=== PATIENT | female | born 1945 | race Caucasian/White ===

== ENCOUNTER → 2018-01-30 14:43 | Outpatient (CLI) | payer MEDICARE, OTHER, SELFPAY ==
[2017-12-30 10:57] VITALS: BMI 19.7
--- NOTE | 2018-01-30 14:49 | RAD_ITS ---
STUDY: X-RAY CHEST REASON FOR EXAM: Female, 72 years old. Chest pain TECHNIQUE: Frontal and lateral views of the chest COMPARISON: 06/19/2015 FINDINGS: The lungs are clear. There are no pleural effusions. There is no pneumothorax. The heart is mildly enlarged, but stable in size. Again noted are sternotomy wires. The visualized osseous structures are within normal limits. RAD/Chest PA and Lateral IMPRESSION: No acute thoracic pathology. Electronically Signed: Monroe Guzman, at 15:22 EST Tel , Service support ,
[2018-01-30 18:38] LABS: Color, Urine Yellow (Yellow); Glucose, Dipstick Normal (Normal); Ketone-Dipstick Negative (Negative); Leukocyte Esterase-Dipstick Negative /ul (Negative); Nitrite-Dipstick Negative (Negative); Occult Blood-Urine 10 /ul (Negative); Protein-Dipstick Negative (Negative); Specific Gravity, Urine 1.015 (1.002-1.030); Urine Bilirubin Dipstick Negative (Negative); Urine Clarity Clear (Clear); Urine Urobilinogen Normal (Normal)
--- OUTSIDE RECORDS SUMMARY | 2018-03-18 20:28 | XMS RPT_ITS ---
:1945 Author Organization [facility] Care Team Providers Name Role Phone CRISTOPHER CARTER, MR. VALLE Primary Care Unavailable CAROLYNE CRANE MD Referring Unavailable FISH ANDREA, JHON Attending Unavailable FISH ANDREA, JHON Attending Unavailable CRISTOPHER CARTER, MR. VALLE Primary Care Unavailable Saad Garcia Attending Unavailable Leon Mandel Referring Unavailable Leon Mandel Attending Unavailable Loen Mandel Referring Unavailable Leon Mandel Primary Care Unavailable Leon Mandel Attending Unavailable Leon Mandel Referring Unavailable RAKAN NI Admitting Unavailable RAKAN NI Attending Unavailable PROBLEMS PROBLEMS DATE TYPE CONDITION / ATTENDING STATUS SOURCE CODE 03/08/2018 Unknown R05 - Cough / Leon Mandel Active [place] R05(ICD-10) [facility] [place] Repository 07/25/2017 Admitting Unknown / RAKAN NI Active [facility] diagnosis UNK(Unknown) Hospital Repository PROCEDURES PROCEDURES No Procedure Records FoundRESULTS RESULTS INTERNAL MEDICINE Observed: 02/16/2018 Status: F Source: [place] OFFICE VISIT 2:11 PM [facility] [address] [place] [address] OFFICE VISIT Date of Service: 02/16/18 MR#: [id number] Acct: [id number] Name: DALIA CHU Rep #: [id number] : 1945 Provider: Leon Mandle DO Age/Sex: 72/F Location[place] [facility] Status: Signed Intake Vital Signs02/16/18 Height 5 ft 2 in 02/16/18 Weight: 108 lb 02/16/18 Body Mass Index (BMI) 19.7 02/16/18 Blood Pressure 127/73 H Intake Visit Reasons: Test results Chief Complaint: Test results Is patient in pain?: Yes (back) Pain scale (1-10): 5 Allergies Sulfa (Sulfonamide Antibiotics) Allergy (Verified 02/16/18 13:25) Rash Medications Acetaminophen [Tylenol] 1,000 mg PO TID PRN PRN #90 tab 06/15/15 [Rx Confirmed 02/16/18] Cholecalciferol (VIT D3) [Vitamin D3] 2,000 unit PO DAILY #30 tab 06/15/15 [Rx Confirmed 02/16/18] citalopram 40 mg tablet 20 mg PO DAILY 02/16/18 [History Confirmed 02/16/18] diltiazem CD 180 mg capsule,extended release 24 hr 180 mg PO DAILY 02/16/18 [History Confirmed 02/16/18] warfarin 3 mg tablet 3 mg PO DAILY 02/16/18 [History Confirmed 02/16/18] warfarin 5 mg tablet 5 mg PO DAILY tab 02/16/18 [History Confirmed 02/16/18] PFSH Medical History Cancer of pelvic bone (Resolved) Surgical History History of artificial heart valve (Acute) History of hysterectomy (Acute) History of total right hip replacement (Acute) Family History Father Lung cancer Mother Heart disease Social History Smoking Status: Former smoker alcohol intake: current alcohol intake frequency: holidays/special occasions only substance use type: does not use what type of physical activity do you participate in: none HPI HPI Chief Complaint: Test results Details: DALIA CHU, is a 72 F who presents to the office today for discussion on back pain She has had this back pain on and off but it is much worse and I think underlying is a concern that she has recurrence of her bone cancer that apparently she had in the pelvis. The pain is at about the eighth dorsal vertebra it radiates around to the left it is worse when she side bends to that side. ROS Const Constitutional: No chills, fatigue, fever(s), frequent falls, malaise, weakness, sleep problems or change in appetite Eyes Eyes: No blurry vision, change in vision, double vision, discharge or visual disturbances ENT ENT: No abnormal hearing, ear pain, ear pressure, tinnitus or dizziness/vertigo Resp Respiratory: No cough, shortness of breath or wheezing Cardio Cardiology: No chest pain at rest, chest pain with exertion, shortness of breath, dyspnea on exertion, generalized swelling, irregular heart rhythm, lightheadedness, orthopnea, fast heart rate or palpitations Gastro GI: No abdominal pain, change in bowel habits, constipation, diarrhea, nausea/dyspepsia or vomiting Genitourinary-Female: No difficulty urinating, burning urination, painful urination, urinary incontinence, urinary frequency, urinary urgency, urinary hesitancy, urinary retention, Frequent nighttime urination/ nocturia, sexual problems, genital lesions, abnormal vaginal bleeding, pelvic pain, vaginal dryness, vaginal odor or Vaginal Itching Musc Musculoskeletal: No joint pain, back pain, joint swelling, limited range of motion, numbness or tingling Skin Skin: No change in skin color, itching, rash or wounds Breast Breast: No breast lump or breast pain Neuro Neurology: No frequent falls, weakness, visual disturbances, abnormal hearing, numbness, tingling, unsteady gait/balance, dizziness, loss of vision or memory loss Psych Psychiatric: No change in appetite, No memory loss, No anxiety, No depression, No Thoughts of harming yourself/Others Endo Endocrine: No fatigue, heat intolerance, increased thirst/drinking, increased hunger or increased urination Aller/Imm Allergy/Immunologic: No wheezing, itchy eyes or seasonal allergy symptoms Dashawn/Lymp Hematologic/Lymphatic: No easy bleeding, easy bruising or enlarged lymph nodes Exam Const General: cooperative, healthy appearing, no acute distress Nutritional Appearance: thin Orientation: oriented x3 Chest Chest palpation AND inspection: normal inspection of the chest Resp Effort AND Inspection: normal respiratory effort Auscultation: Bilateral: Clear to Auscultation Cardio Rate: regular rate Rhythm: regular rhythm Heart Sounds: murmur (mechanical valve) continuous Musc Musculoskeletal: Yes scoliosis to R Thoracic/Lumbar Spine: thoracic spinal tenderness (At T-7 level) Skin General: no rashes or lesions noted Neuro General: oriented x3, moves all extremities, no focal motor deficits Psych Appearance: grossly normal Mental Status: mental status grossly normal Assessment AND Plan Problems 1. Chronic a-fib I48.2 2. 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 Thoracic myofascial strain, initial encounter S29.019A Plan This patient was seen several weeks ago with her complaining of back pain as I did not have time to examine her I ordered a x-ray of the thoracic spine and a urinalysis. Both of which came back normal. After talking with her she is right with fully concerned that she has bone cancer but I assured her that the x-ray showed no sign of that. I think she simply has a thoracic strain so I gently gently manipulated thoracic spine with some segmental relief. I told her some exercises to do and if the pain continues I will refer her to physical therapy or perhaps a chiropractor for continued VAC therapy with the outside chance of doing a bone scan if the pain increases in severity. 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 Thoracic myofascial strain, initial encounter S29.019A Encounter type: initial encounter 02/16/18 1411 <Electronically signed by Leon Mandel DO> Date Leon Mandel DO Cosigner Signature: Date (if applicable) CC: PRO Collected: 02/08/2018 Status: F Source: [facility] 1:30 PM [facility] [place] REPOSITORY TYPE CODE TESTS RESULT OUT OF REFERENCE UNITS RANGE LAB PT(LOINC) 9.3-14.6 seconds Protime High 30.9 LAB INR(LOINC) 0.9-1.2 ratio PT High International 3.1 Ratio Result Comment: Standard Dose 2.0 - 3.0 High Dose 2.5 - 3.5 The recommended therapeutic range for oral anticoagulant therapy is: LOW RISK: Prophylaxis of venous thrombosis INR: 2.0 - 3.0 Treatment of pulmonary embolism 2.0 - 3.0 Prevention of systemic embolism 2.0 - 3.0 HIGH RISK: Mechanical prosthetic valves 2.5 - 3.5 Performed By: #### PRO #### [address] [address] PRO Collected: 02/01/2018 Status: F Source: [place] 2:00 PM [facility] [place] REPOSITORY TYPE CODE TESTS RESULT OUT OF REFERENCE UNITS RANGE LAB PT(LOINC) 9.3-14.6 seconds Protime High 22.1 LAB INR(LOINC) 0.9-1.2 ratio PT High International 2.2 Ratio Result Comment: Standard Dose 2.0 - 3.0 High Dose 2.5 - 3.5 The recommended therapeutic range for oral anticoagulant therapy is: LOW RISK: Prophylaxis of venous thrombosis INR: 2.0 - 3.0 Treatment of pulmonary embolism 2.0 - 3.0 Prevention of systemic embolism 2.0 - 3.0 HIGH RISK: Mechanical prosthetic valves 2.5 - 3.5 Performed By: #### PRO #### [address] [address] CHEST PA AND LATERAL Observed: 01/30/2018 Status: F Source: [place] 2:50 PM [facility] [place] REPOSITORY [facility] Imaging Services [address] [place] [address] Chest PA and Lateral MR#: [id number] Acct: [id number] Name: DALIA CHU Rep #: [id number] : 1945 F 72 From: Monroe Guzman MD PCP: Leon Mandel DO Status: REG CLI Study: Chest PA and Lateral Date of Exam: 01/30/18 Exam# [id number] Ordering Dr: Leon Mandel DO STUDY: X-RAY CHEST REASON FOR EXAM: Female, 72 years old. Chest pain TECHNIQUE: Frontal and lateral views of the chest COMPARISON: 06/19/2015 FINDINGS: The lungs are clear. There are no pleural effusions. There is no pneumothorax. The heart is mildly enlarged, but stable in size. Again noted are sternotomy wires. The visualized osseous structures are within normal limits. RAD/Chest PA and Lateral IMPRESSION: No acute thoracic pathology. Electronically Signed: Monroe Guzman, at 15:22 EST Tel , Service support , CC: Leon Mandel DO Senior Software Project Manager: Signed URINALYSIS, ROUTINE Collected: 01/30/2018 Status: F Source: [place] ([place]) 2:50 PM [facility] [place] REPOSITORY Order Comment: How was Urine Obtained? HYDRO ELECTRIC STATION OPERATOR TO SPECIFY TYPE CODE TESTS RESULT OUT OF RANGE REFERENCE UNITS LAB L400.3000 Yellow COLOR Normal Yellow LAB L400.3050 Clear Normal CLARITY Clear LAB L400.3200 Normal mg/dl Normal GLUCOSE, UR Normal LAB L400.3300 Negative mg/dL Normal BILIRUBIN URINE Negative LAB L400.3400 Negative mg/dl Normal KETONE UR Negative LAB L400.3465 1.002-1.030 Normal SP.GR. DIPSTX 1.015 LAB L400.3550 5.0 - 8.0 pH UR Normal 7.0 LAB L400.3600 Negative mg/dl PROT Normal DIPSTX Negative LAB L400.3700 Normal mg/dl Normal UROBILI Normal LAB L400.3750 Negative Normal NITRITE UR Negative LAB L400.3780 Negative /ul High 10 OCCULT BLOOD-UR LAB L400.3800 Negative /ul LEUK Normal ESTERASE Negative Performed By: #### L400.2010 #### [facility] [place], [place], [address] PRO Collected: 01/08/2018 Status: F Source: [place] 12:39 PM [facility] [place] REPOSITORY TYPE CODE TESTS RESULT OUT OF REFERENCE UNITS RANGE LAB PT(LOINC) 9.3-14.6 seconds Protime High 35.2 LAB INR(LOINC) 0.9-1.2 ratio PT High International 3.6 Ratio Result Comment: Standard Dose 2.0 - 3.0 High Dose 2.5 - 3.5 The recommended therapeutic range for oral anticoagulant therapy is: LOW RISK: Prophylaxis of venous thrombosis INR: 2.0 - 3.0 Treatment of pulmonary embolism 2.0 - 3.0 Prevention of systemic embolism 2.0 - 3.0 HIGH RISK: Mechanical prosthetic valves 2.5 - 3.5 Performed By: #### PRO #### [address] [address] PRO Collected: 01/03/2018 Status: F Source: [place] 1:25 PM [facility] [place] REPOSITORY TYPE CODE TESTS RESULT OUT OF RANGE REFERENCE UNITS LAB PT(LOINC) 9.3-14.6 seconds High Protime 60.1 LAB INR(LOINC 0.9-1.2 ratio ) PT Abnormal International 6.3 Alert Ratio Result Comment: Standard Dose 2.0 - 3.0 High Dose 2.5 - 3.5 The recommended therapeutic range for oral anticoagulant therapy is: LOW RISK: Prophylaxis of venous thrombosis INR: 2.0 - 3.0 Treatment of pulmonary embolism 2.0 - 3.0 Prevention of systemic embolism 2.0 - 3.0 HIGH RISK: Mechanical prosthetic valves 2.5 - 3.5 Performed By: #### PRO #### [address] [address] URGENT CARE VISIT Observed: 12/30/2017 Status: F Source: [place] RE[place] 11:46 AM [facility] [place] REPOSITORY [facility] [address] [place] [id number] OFFICE VISIT Date of Service: 12/30/17 MR#: [id number] Acct: [id number] Name: DALIA CHU Rep #: [id number] : 1945 Provider: EMMA Garcia Age/Sex: 72/F Location: [facility] Status: Signed Intake Vital Signs12/30/17 Height 5 ft 2 in 12/30/17 Weight: 108 lb 12/30/17 Body Mass Index (BMI) 19.7 12/30/17 Blood Pressure 160/88 H 12/30/17 Blood Pressure Location Lt brachial Intake Visit Reasons: BACK PAIN Chief Complaint: Thoracic back pain Allergies Sulfa (Sulfonamide Antibiotics) Allergy (Verified 06/19/15 18:53) Rash Medications Acetaminophen [Tylenol] 1,000 mg PO TID PRN PRN #90 tab 06/15/15 [Rx Confirmed 06/19/15] Cholecalciferol (VIT D3) [Vitamin D3] 2,000 unit PO DAILY #30 tab 06/15/15 [Rx Confirmed 06/20/15] Citalopram [Celexa] 20 mg PO DAILY #30 tab 06/15/15 [Rx Confirmed 06/20/15] Flecainide [Tambocor] 100 mg PO BID #60 tab 06/15/15 [Rx Confirmed 06/20/15] Senna/Docusate Sodium [Senokot-S] 1 tab PO BID #60 tab 06/15/15 [Rx Confirmed 06/20/15] fentaNYL patch [Duragesic patch] 25 mcg TRANSDERM. Q3D #7 patch 06/20/15 [Rx] Amlodipine [Norvasc] 2.5 mg PO DAILY #30 tab 06/22/15 [Rx Confirmed 06/20/15] Oxycodone [Oxyir] 5 mg PO Q4H PRN PRN #15 tab 06/22/15 [Rx] Warfarin [Coumadin] 7.5 mg PO QODAY 06/22/15 [History Confirmed 06/22/15] Warfarin [Coumadin] 10 mg PO QODAY 06/22/15 [History Confirmed 06/22/15] cyclobenzaprine 10 mg tablet 5 mg PO TID PRN PRN #20 tab 12/30/17 [Rx Confirmed 12/30/17] PFSH Social History Smoking Status: Former smoker HPI HPI Chief Complaint: Thoracic back pain Details: DALIA CHU, is a 72 F who presents to the office today for thoracic back pain times 6 days. Patient states over the past 2 weeks she had had an upper respiratory infection and was not treated. She has been taking [id number] cold and cough medications. Her symptoms have essentially resolved although she has a minor dry cough. Approximately 6 days ago she developed mid back pain with some radiation to the right flank. She has been taking Tylenol occasionally. She wonders if she has pleurisy. She states she has not injured her back, she has not been lifting and she has not fallen. ROS Const Constitutional: No chills or fever(s) Eyes Eyes: No change in vision ENT ENT: No ear pain, sore throat, nasal congestion or nasal discharge Resp Respiratory: No cough, chest congestion, shortness of breath or wheezing Cardio Cardiology: No chest pain at rest or chest pain with exertion Gastro GI: No abdominal pain, diarrhea, vomiting or nausea/dyspepsia Musc Musculoskeletal: Positive for back pain (Thoracic back pain and right flank pain); no abnormal walking Skin Skin: No rash or change in skin color Neuro Neurology: No confusion, abnormal walking or abnormal speech Psych Psychiatric: No confusion Aller/Imm Allergy/Immunologic: No wheezing Exam Resp Effort AND Inspection: normal respiratory effort Auscultation: Bilateral: Clear to Auscultation (no friction rub) Cardio Rhythm: abnormal rhythm Heart Sounds: click, murmur systolic harsh, at the right sternal border and at the left sternal border Musc Musculoskeletal: No joint tenderness Thoracic/Lumbar Spine: thoracic and lumbar spine normal to inspection, thoraco-lumbar ROM normal, no paraspinal tenderness, pain with thoraco-lumbar ROM with lateral flexion to the right Assessment AND Plan Problems 1. Acute right-sided thoracic back pain M54.6 Plan The patient was instructed to continue acetaminophen. She was instructed to apply heat and begin gentle stretching exercises. We will begin cyclobenzaprine 5 mg 3 times daily as needed, this was reordered from a previous cyclobenzaprine prescription listed in her chart. The patient was informed that the cyclobenzaprine can cause drowsiness. The patient declined a chest x-ray today. She states she will follow-up with her primary care if her symptoms do not resolve in the next week. Medications Refilled: Coding Level of Care Code Off vis,est,level 3 Diagnoses Acute right-sided thoracic back pain M54.6 Chronicity: acute Back pain laterality: right 12/30/17 1146 <Electronically signed by Saad CARTER> Date Saad Yehignmarylin Signature: Date (if applicable) CC: PRO Collected: 10/09/2017 Status: F Source: [place] 2:15 PM [facility] [place] REPOSITORY TYPE CODE TESTS RESULT OUT OF REFERENCE UNITS RANGE LAB PT(LOINC) 9.3-14.6 seconds Protime High 31.9 LAB INR(LOINC) 0.9-1.2 ratio PT High International 3.2 Ratio Result Comment: Standard Dose 2.0 - 3.0 High Dose 2.5 - 3.5 The recommended therapeutic range for oral anticoagulant therapy is: LOW RISK: Prophylaxis of venous thrombosis INR: 2.0 - 3.0 Treatment of pulmonary embolism 2.0 - 3.0 Prevention of systemic embolism 2.0 - 3.0 HIGH RISK: Mechanical prosthetic valves 2.5 - 3.5 Performed By: #### PRO #### [address] [address] PRO Collected: 09/15/2017 Status: F Source: [place] 11:51 AM [facility] [place] REPOSITORY TYPE CODE TESTS RESULT OUT OF REFERENCE UNITS RANGE LAB PT(LOINC) 9.3-14.6 seconds Protime High 24.6 LAB INR(LOINC) 0.9-1.2 ratio PT High International 2.4 Ratio Result Comment: Standard Dose 2.0 - 3.0 High Dose 2.5 - 3.5 The recommended therapeutic range for oral anticoagulant therapy is: LOW RISK: Prophylaxis of venous thrombosis INR: 2.0 - 3.0 Treatment of pulmonary embolism 2.0 - 3.0 Prevention of systemic embolism 2.0 - 3.0 HIGH RISK: Mechanical prosthetic valves 2.5 - 3.5 Performed By: #### PRO #### [address] [address] PRO Collected: 09/08/2017 Status: F Source: [place] 10:40 AM [facility] [place] REPOSITORY TYPE CODE TESTS RESULT OUT OF REFERENCE UNITS RANGE LAB PT(LOINC) 9.3-14.6 seconds Protime High 33.7 LAB INR(LOINC) 0.9-1.2 ratio PT High International 3.4 Ratio Result Comment: Standard Dose 2.0 - 3.0 High Dose 2.5 - 3.5 The recommended therapeutic range for oral anticoagulant therapy is: LOW RISK: Prophylaxis of venous thrombosis INR: 2.0 - 3.0 Treatment of pulmonary embolism 2.0 - 3.0 Prevention of systemic embolism 2.0 - 3.0 HIGH RISK: Mechanical prosthetic valves 2.5 - 3.5 Performed By: #### PRO #### [address] [address] PRO Collected: 09/01/2017 Status: F Source: [place] 9:45 AM [facility] [place] REPOSITORY TYPE CODE TESTS RESULT OUT OF REFERENCE UNITS RANGE LAB PT(LOINC) 9.3-14.6 seconds Protime High 22.1 LAB INR(LOINC) 0.9-1.2 ratio PT High International 2.2 Ratio Result Comment: Standard Dose 2.0 - 3.0 High Dose 2.5 - 3.5 The recommended therapeutic range for oral anticoagulant therapy is: LOW RISK: Prophylaxis of venous thrombosis INR: 2.0 - 3.0 Treatment of pulmonary embolism 2.0 - 3.0 Prevention of systemic embolism 2.0 - 3.0 HIGH RISK: Mechanical prosthetic valves 2.5 - 3.5 Performed By: #### PRO #### [address] [address] PRO Collected: 08/16/2017 Status: F Source: [place] 11:57 AM [facility] [place] REPOSITORY TYPE CODE TESTS RESULT OUT OF REFERENCE UNITS RANGE LAB PT(LOINC) 9.3-14.6 seconds Protime High 32.1 LAB INR(LOINC) 0.9-1.2 ratio PT High International 3.2 Ratio Result Comment: Standard Dose 2.0 - 3.0 High Dose 2.5 - 3.5 The recommended therapeutic range for oral anticoagulant therapy is: LOW RISK: Prophylaxis of venous thrombosis INR: 2.0 - 3.0 Treatment of pulmonary embolism 2.0 - 3.0 Prevention of systemic embolism 2.0 - 3.0 HIGH RISK: Mechanical prosthetic valves 2.5 - 3.5 Performed By: #### PRO #### [address] [address] PRO Collected: 08/09/2017 Status: F Source: [place] 1:38 PM [facility] [place] REPOSITORY TYPE CODE TESTS RESULT OUT OF RANGE REFERENCE UNITS LAB PT(LOINC) 9.3-14.6 seconds High Protime 54.1 LAB INR(LOINC 0.9-1.2 ratio ) PT Abnormal International 5.6 Alert Ratio Result Comment: Standard Dose 2.0 - 3.0 High Dose 2.5 - 3.5 The recommended therapeutic range for oral anticoagulant therapy is: LOW RISK: Prophylaxis of venous thrombosis INR: 2.0 - 3.0 Treatment of pulmonary embolism 2.0 - 3.0 Prevention of systemic embolism 2.0 - 3.0 HIGH RISK: Mechanical prosthetic valves 2.5 - 3.5 Performed By: #### PRO #### [address] [address] PRO Collected: 07/31/2017 Status: F Source: [place] 2:35 PM [facility] [place] REPOSITORY TYPE CODE TESTS RESULT OUT OF REFERENCE UNITS RANGE LAB PT(LOINC) 9.3-14.6 seconds Protime High 26.2 LAB INR(LOINC) 0.9-1.2 ratio PT High International 2.6 Ratio Result Comment: Standard Dose 2.0 - 3.0 High Dose 2.5 - 3.5 The recommended therapeutic range for oral anticoagulant therapy is: LOW RISK: Prophylaxis of venous thrombosis INR: 2.0 - 3.0 Treatment of pulmonary embolism 2.0 - 3.0 Prevention of systemic embolism 2.0 - 3.0 HIGH RISK: Mechanical prosthetic valves 2.5 - 3.5 Performed By: #### PRO #### [address] [address] CNDS Observed: 07/28/2017 Status: COMPLETED Source: [place] 5:28 PM [facility] REPOSITORY HNO ID: [id number] Author: Christin Cannon Service: (none) Author Type: Physician Type: Discharge Summaries Filed: 12/21/2017 6:08 PM Note Text: [place] [address] HEALTH INFORMATION MANAGEMENT DISCHARGE SUMMARY Patient: STEFANI CHUZABETH CHRISTIN EPPS M.D. [id number] [age] F Status: ADM Phan [facility] Date of Admission: 07/25/17 Date of Discharge: Discharge Summary Discharge Diagnosis: 1. A-fib 2. INR (international normal ratio) abnormal 3. Subtherapeutic international normalized ratio (INR) 4. S/P aortic valve and mitral valve replacement HPI: Please see written history and physical. Hospital Course: Uncomplicated. Dalia received weight-adjusted unfractionated heparin and warfarin, after which the heparin was discontinued once her INR was therapeutic. Dalia reports that she has been on her current warfarin regimen for eight - 10 months and that her INRs were otherwise stable. She attributed her supratherapeutic INR to getting ill recently. She had not yet started the azithromycin prescribed to her prior to her INR becoming supratherapeutic. She receive 10 mg daily each of the last two days. This dosing regimen corresponds to a weekly dose of 70 mg. Her home warfarin dose - 8 mg daily Monday through , and 11 mg on Fridays - corresponds to a weekly dose of 59 mg, which is approximately 15 percent lower than what she was receiving during her hospitalization. INR on the day of discharge was 2.7. Heparin was discontinued. Dalia was instructed to take 8 mg warfarin tomorrow and Monday and to get her INR checked on Monday. Orders/Scripts Dalia was instructed to get her INR checked on Monday, 31 July 2017. Her goal INR is 2.5 - 3.5. Discharge Instructions: Please see written instructions on chart. Discharge Condition: Stable Disposition: Home CC: MARA CUELLO C.NDante; JHON ARMSTRONG C.NDante; RAKAN NI D.O. <Electronically signed by CHRISTIN CANNON M.D.> 07/28/17 1734 CHRISTIN CANNON M.D. cc: << Signature on File>> Reported By: CHRISTIN CANNON M.D. Signed By: CHRISTIN CANNON M.D. Tests performed at: [address] [address] CBC Collected: 07/28/2017 Status: F Source: [facility] 4:35 AM HOSPITAL REPOSITORY TYPE CODE TESTS RESULT OUT OF RANGE REFERENCE UNITS LAB L200.0100 4.5-10.0 x10(3) Normal WBC 5.5 LAB L200.0200 3.30-5.00 x10(6) Normal RBC 4.04 LAB L200.0210 12.0-16.0 g/dL Normal HGB 12.6 LAB L200.0220 36.0-48.0 % Normal HCT 37.0 LAB L200.0230 80.0-99.0 fl Normal MCV 91.6 LAB L200.0240 28.5-32.9 pg Normal MCH 31.2 LAB L200.0250 33.0-36.0 g/dL Normal MCHC 34.0 LAB L200.0260 12.5-15.7 % Normal RDW 14.0 LAB L200.0270 150-450 X10(3) Normal PLT 206 LAB L200.0290 7.5-9.5 fl Normal MPV 8.4 LAB L200.0300 45.0-73.0 % Normal NEUT% 57.0 LAB L200.0310 16.0-48.0 % Normal LYMPH% 28.3 LAB L200.0320 4.3-11.2 % Normal MONO% 11.2 LAB L200.0330 0.5-4.9 % Normal EOS% 3.0 LAB L200.0340 0.0-1.0 % Normal BASO% 0.5 LAB L200.0350 1.40-6.50 x10(3) Normal NEUT# 3.20 LAB L200.0360 1.00-3.50 x10(3) Normal LYMPH# 1.60 LAB L200.0370 0.30-0.80 x10(3) Normal MONO# 0.60 LAB L200.0380 0.00-0.54 x10(3) Normal EOS# 0.20 LAB L200.0390 0.00-0.10 x10(3) Normal BASO# 0.00 Performed By: #### L200.0010 #### [facility] [address] [place] [id number] C-REACTIVE PROT Collected: 07/28/2017 Status: F Source: [place] 4:35 AM [facility] REPOSITORY TYPE CODE TESTS RESULT OUT OF RANGE REFERENCE UNITS LAB L100.0470 0.00-0.50 mg/dL High 0.75 C-REACTIVE PROT Result Comment: STATED NORMAL RANGE IS FOR ADULTS ONLY. NO NORMAL RANGE HAS BEEN ESTABLISHED FOR CHILDREN. Performed By: #### L100.0470 #### ML - LABORATORY [address] [place] [address] [id number] PT Collected: 07/28/2017 Status: F Source: [facility] 4:35 AM HOSPITAL REPOSITORY TYPE CODE TESTS RESULT OUT OF RANGE REFERENCE UNITS LAB L200.1612 9.4-12.5 secs High PROTIME 30.4 LAB L200.1622 Normal INR 2.7 Result Comment: COUMADIN PROTOCOLS INR values are generated for use in patients on coumadin. INR values stabilize 7 days after the start of coumadin or changes in coumadin dosage. The usual TARGET/INR range is: INDICATION INR RANGE Prophylaxis/treatment of: Venous Thrombosis, Pulmonary Embolism 2.0-3.0 Prevention of systemic embolism from: Tissue heart valves 2.0-3.0 Acute myocardial infarction (to prevent systemic embolism) 2.0-3.0 AMI (to prevent recurrent VT) 2.5-3.5 Valvular heart disease 2.0-3.0 Atrial fibrillation 2.0-3.0 Mechanical prosthetic valves (high risk) 2.5-3.5 Bileaflet mechanical valve in aortic position 2.0-3.0 Presence of Lupus Anticoagulant or Antiphospholipid Antibodies 2.5-3.5 PANIC VALUE: GREATER THAN OR EQUAL TO 4.5 Performed By: #### L200.1602, L200.1642 #### [facility] [address] [place] [address] [id number] PTT Collected: 07/28/2017 Status: F Source: [facility] 4:35 AM HOSPITAL REPOSITORY TYPE CODE TESTS RESULT OUT OF RANGE REFERENCE UNITS LAB L200.1642 25.1-36.5 secs High PTT 70.3 Result Comment: Heparin Protocol Therapeutic Range = 54.0-90.0 secs Performed By: #### L200.1602, L200.1642 #### ML - LABORATORY [address] [place] [address] PROGRESS Observed: 07/27/2017 Status: COMPLETED Source: [place] 8:07 AM [facility] REPOSITORY HNO ID: [id number] Author: Rakan Ni Service: (none) Author Type: (none) Type: Progress Notes Filed: 12/21/2017 6:05 PM Note Text: [place] [address] PROGRESS NOTES Patient: DALIA CHU RAKAN NI D.O. [id number] [age] F Status: ADM IN [facility] Report Date AND Time: 07/27/17 0807 Subjective Review of Systems Constitutional Body Aches, Pain, Chills. Denies: Anxiety, Hypersomnolence, Night Sweats. Eyes Denies: Diplopia, Glaucoma, Photophobia, Change in Visual Acuity, Blurred Vision, Other. Cardiovascular Arrhythmia, CHF, Dyspnea on exertion, Edema. Pulmonary Denies: Cough, Pleuritic Chest Pain. Gastrointestinal Denies: Nausea, Vomiting, Abdominal Pain, Constipation, Diarrhea, Diverticulosis, Dysphagia, GERD, Hematemesis, Hematochezia, Hepatitis, Jaundice, Melena, Peptic Ulcer Disease, Other. Objective Focused Exam Performed General Appearance Alert, Oriented X3, Cooperative HEENT PERRLA, EOMI, WNL Lungs Clear to Auscultation, Normal Air Movement Neck Supple, No JVD Cardiovascular Tachycardia Abdomen Normal Bowel Sounds, Soft, No Tenderness Extremities No Edema Skin No Ulcers Reviewed - Daily Labs/Vitals/Meds/Orders Coagulation Range/Units 07/27 07/26 0400 1151 Coagulation PT 9.4 - 12.5 secs 22.7 H INR 2.0 APTT 25.1 - 36.5 secs 61.7 H 56.3 H Hematology Range/Units 07/27 0400 Hematology WBC 4.5 - 10.0 x10(3) 5.1 RBC 3.30 - 5.00 x10(6) 3.91 Hgb 12.0 - 16.0 g/dL 12.0 Hct 36.0 - 48.0 % 36.4 MCV 80.0 - 99.0 fl 93.0 MCH 28.5 - 32.9 pg 30.7 MCHC 33.0 - 36.0 g/dL 33.1 RDW 12.5 - 15.7 % 13.9 Plt Count 150 - 450 X10(3) 182 MPV 7.5 - 9.5 fl 8.9 Neut % (Auto) 45.0 - 73.0 % 57.4 Lymph % (Auto) 16.0 - 48.0 % 28.6 Millard % (Auto) 4.3 - 11.2 % 10.4 Eos % (Auto) 0.5 - 4.9 % 2.9 Baso % (Auto) 0.0 - 1.0 % 0.7 Neut # (Auto) 1.40 - 6.50 x10(3) 2.90 Lymph # (Auto) 1.00 - 3.50 x10(3) 1.50 Millard # (Auto) 0.30 - 0.80 x10(3) 0.50 Eos # (Auto) 0.00 - 0.54 x10(3) 0.10 Baso # (Auto) 0.00 - 0.10 x10(3) 0.00 ESR 0 - 20 MM/HR 18 Chemistry Range/Units 07/27 0400 Chemistry Sodium 135 - 145 mmol/L 140 Potassium 3.5 - 5.0 mmol/L 4.3 Chloride 98 - 107 mmol/L 101 Carbon Dioxide 22 - 29 mmol/L 26 Anion Gap 15 - 22 mmol/L 17.3 BUN 8 - 23 mg/dL 16 Creatinine 0.50 - 0.90 mg/dL 0.66 Est GFR ( Amer) > 60 ml/min/1.73m2 Est GFR (Non-Af Amer) > 60 ml/Min/1.73m2 Glucose 82 - 115 mg/dL 119 H Calcium 8.8 - 10.2 mg/dL 9.0 Total Bilirubin 0.2 - 1.2 mg/dL 0.2 Direct Bilirubin 0.0 - 0.3 mg/dL <0.2 AST 5 - 32 U/L 15 ALT 5 - 33 U/L 10 Alkaline Phosphatase 35 - 105 U/L 76 C-Reactive Prot, Quant 0.00 - 0.50 mg/dL 1.08 H Total Protein 6.4 - 8.3 g/dL 6.3 L Albumin 3.5 - 5.2 g/dL 3.7 Globulin 1.5 - 4.5 g/dL 2.6 Albumin/Globulin Ratio 1.1 - 2.5 1.42 Vitamin D 25-Hydroxy 30 - 100 ng/mL 35.7 Microbiology Date/Time Procedure - Status Source Growth 07/27 404 Blood Culture - RECD BLOOD Vital Signs Date Time Temp Pulse Resp B/P B/P Pulse O2 O2 Flow FiO2 Mean Ox Delivery Rate 07/28 799 98.1 76 16 111/73 95 /07 0322 97.4 55 20 113/74 96 /06 2321 97.8 70 20 113/76 97 /06 2103 63 125/73 06/06 1943 98.6 63 16 125/73 95 06/06 1600 98.6 64 16 102/70 94 06/06 1509 98.6 64 16 102/70 94 /06 1105 97.7 56 16 98/66 93 07/26 0828 61 108/61 07/26 0828 61 108/61 Intake AND Output 07/27 0700 07/26 2300 07/26 1500 Intake Total 101 450 420 Output Total 736 610 5827 Balance -699 50 -830 Current Medications Sig/William Start time Last Medication Dose Route Stop Time Status Admin Warfarin Sodium 10 MG ONCE@1700 ONE 07/26 1700 DC 07/26 PO 07/26 1701 1720 Amlodipine Besylate 5 MG QDAY 07/26 09 AC 07/26 PO 0828 Citalopram 40 MG QDAY 07/26 0900 CKD 07/26 Hydrobromide PO 827 Propafenone HCl 150 MG BID 07/25 2100 AC 07/26 PO 2103 Acetaminophen 650 MG Q6HPRN PRN 07/25 161 AC PO Al Hydrox/Mg Hydrox/ 20 ML Q6HPRN PRN 07/25 1615 AC Simethicone PO Benzocaine/Menthol See Dose PRN PRN 07/25 1615 AC Insts (1) MT Diphenhydramine HCl 25 MG HSPRN PRN 07/25 161 AC PO Docusate Sodium 100 MG HSPRN PRN 07/25 1615 AC PO Heparin Sodium See Dose PRN PRN 07/25 1615 AC (Porcine) Insts (2) IV Heparin Sodium/ 500 ML PROTOCOL 07/25 1615 I 07/26 Dextrose IV 1733 Magnesium Hydroxide 30 ML QDPRN PRN 07/25 1615 AC PO Dose Instructions: (1)Benzocaine/Menthol: 1 LOZENGE (2)Heparin Sodium (Porcine): PER LOW DOSE HEPARIN SLIDING SCALE Orders Procedure Date/time Status C-REACTIVE PROTEIN 07/29 399 Active BLOOD CULTURE 07/28 399 Active PTT 07/28 399 Complete PT/INR 07/28 399 Complete ERYTHROCYTE SEDIMENTATION RATE 07/28 399 Complete C-REACTIVE PROTEIN 07/28 399 Complete Please address Code Status 07/27 0138 Active Mod Sedation Home Instruction 07/26 1824 Active BLOOD CULTURE 07/26 1824 Active Problems Problems Current Problems 1. Subtherapeutic international normalized ratio (INR) 2. S/P aortic valve and mitral valve replacement 3. A-fib 4. HTN (hypertension) Plan Plans Additional Comments home once inr greater than 2.2 today was 2.0 home in am <Electronically signed by RAKAN NI D.O.> 07/27/17 1224 RAKAN NI D.O. << Signature on File>> Reported By: RAKAN NI D.O. Signed By: RAKAN NI D.O. Tests performed at: [address] [address] Observed: 07/27/2017 Status: F Source: [facility] 4:05 AM HOSPITAL REPOSITORY No Growth Performed By: #### M105.0000 #### [facility] [address] [place] [address] [id number] CBC Collected: 07/27/2017 Status: F Source: [facility] 4:00 AM HOSPITAL REPOSITORY TYPE CODE TESTS RESULT OUT OF RANGE REFERENCE UNITS LAB L200.0100 4.5-10.0 x10(3) Normal WBC 5.1 LAB L200.0200 3.30-5.00 x10(6) Normal RBC 3.91 LAB L200.0210 12.0-16.0 g/dL Normal HGB 12.0 LAB L200.0220 36.0-48.0 % Normal HCT 36.4 LAB L200.0230 80.0-99.0 fl Normal MCV 93.0 LAB L200.0240 28.5-32.9 pg Normal MCH 30.7 LAB L200.0250 33.0-36.0 g/dL Normal MCHC 33.1 LAB L200.0260 12.5-15.7 % Normal RDW 13.9 LAB L200.0270 150-450 X10(3) Normal PLT 182 LAB L200.0290 7.5-9.5 fl Normal MPV 8.9 LAB L200.0300 45.0-73.0 % Normal NEUT% 57.4 LAB L200.0310 16.0-48.0 % Normal LYMPH% 28.6 LAB L200.0320 4.3-11.2 % Normal MONO% 10.4 LAB L200.0330 0.5-4.9 % Normal EOS% 2.9 LAB L200.0340 0.0-1.0 % Normal BASO% 0.7 LAB L200.0350 1.40-6.50 x10(3) Normal NEUT# 2.90 LAB L200.0360 1.00-3.50 x10(3) Normal LYMPH# 1.50 LAB L200.0370 0.30-0.80 x10(3) Normal MONO# 0.50 LAB L200.0380 0.00-0.54 x10(3) Normal EOS# 0.10 LAB L200.0390 0.00-0.10 x10(3) Normal BASO# 0.00 Performed By: #### L200.0010, L200.1500 #### [facility] - LABORATORY [address] [place] [id number] ESR Collected: 07/27/2017 Status: F Source: [facility] 4:00 AM HOSPITAL REPOSITORY TYPE CODE TESTS RESULT OUT OF RANGE REFERENCE UNITS LAB L200.1500 0-20 MM/HR Normal ESR 18 Performed By: #### L200.0010, L200.1500 #### ML [facility] [address] [place] [address] [id number] PT Collected: 07/27/2017 Status: F Source: [facility] 4:00 AM HOSPITAL REPOSITORY TYPE CODE TESTS RESULT OUT OF RANGE REFERENCE UNITS LAB L200.1612 9.4-12.5 secs High PROTIME 22.7 LAB L200.1622 Normal INR 2.0 Result Comment: COUMADIN PROTOCOLS INR values are generated for use in patients on coumadin. INR values stabilize 7 days after the start of coumadin or changes in coumadin dosage. The usual TARGET/INR range is: INDICATION INR RANGE Prophylaxis/treatment of: Venous Thrombosis, Pulmonary Embolism 2.0-3.0 Prevention of systemic embolism from: Tissue heart valves 2.0-3.0 Acute myocardial infarction (to prevent systemic embolism) 2.0-3.0 AMI (to prevent recurrent VT) 2.5-3.5 Valvular heart disease 2.0-3.0 Atrial fibrillation 2.0-3.0 Mechanical prosthetic valves (high risk) 2.5-3.5 Bileaflet mechanical valve in aortic position 2.0-3.0 Presence of Lupus Anticoagulant or Antiphospholipid Antibodies 2.5-3.5 PANIC VALUE: GREATER THAN OR EQUAL TO 4.5 Performed By: #### L200.1602, L200.1642 #### [facility] - LABORATORY [address] [place] [address] [id number] PTT Collected: 07/27/2017 Status: F Source: [facility] 4:00 AM HOSPITAL REPOSITORY TYPE CODE TESTS RESULT OUT OF RANGE REFERENCE UNITS LAB L200.1642 25.1-36.5 secs High PTT 61.7 Result Comment: Heparin Protocol Therapeutic Range = 54.0-90.0 secs Performed By: #### L200.1602, L200.1642 #### [facility] - LABORATORY [address] [place] [address] [id number] BMP Collected: 07/27/2017 Status: F Source: [facility] 4:00 AM HOSPITAL REPOSITORY TYPE CODE TESTS RESULT OUT OF RANGE REFERENCE UNITS LAB L100.0060 82-115 mg/dL High GLUCOSE 119 LAB L100.0110 8-23 mg/dL BUN Normal 16 LAB L100.0131 0.50-0.90 mg/dL Normal CREATININE 0.66 LAB L100.0140 8.8-10.2 mg/dL CALCIUM Normal 9.0 LAB L100.0150 135-145 mmol/L SODIUM Normal 140 LAB L100.0160 3.5-5.0 mmol/L Normal POTASSIUM 4.3 LAB L100.0170 98-107 mmol/L CHLORIDE Normal 101 LAB L100.0180 22-29 mmol/L TCO2 Normal 26 LAB L100.0185 15-22 mmol/L ANION Normal GAP 17.3 LAB L100.0274 eGFR Normal nonAFR Felipa > 60 ml/Min/1.73m 2 LAB L100.0275 eGFR if Normal AFR FELIPA > 60 ml/min/1.73m 2 Result Comment: eGFR >= 60 Indicates normal kidney function. * eGFR IS AN ESTIMATE * (AFR FELIPA = ) (non-AFR AM = NON-) MDRD calculation used in the eGFR should not be used to dose medications. For further limitations of the eGFR please refer to the Physician Website or the National Kidney Disease Education Program website (www.nkdep.nih.gov). Performed By: #### L100.0010, L100.0030, L100.0470, L304.0470 #### [facility] [address] [place] [address] HEPATIC PANEL Collected: 07/27/2017 Status: F Source: [place] 4:00 AM [facility] REPOSITORY TYPE CODE TESTS RESULT OUT OF RANGE REFERENCE UNITS LAB L100.0200 6.4-8.3 g/dL Low TOTAL PROTEIN 6.3 LAB L100.0210 3.5-5.2 g/dL Normal ALBUMIN 3.7 LAB L100.0220 0.2-1.2 mg/dL TOTAL Normal BILIRUBIN 0.2 LAB L100.0230 0.0-0.3 mg/dL Normal DIRECT BILIRUBI <0.2 LAB L100.0240 5-32 U/L AST Normal 15 LAB L100.0250 5-33 U/L ALT Normal 10 LAB L100.0260 35-105 U/L ALK. Normal PHOS 76 LAB L100.0262 1.5-4.5 g/dL Normal GLOBULIN,CALC 2.6 LAB L100.0264 1.1-2.5 A:G Normal RATIO 1.42 Performed By: #### L100.0010, L100.0030, L100.0470, L304.0470 #### [facility] - LABORATORY [address] [place] [id number] C-REACTIVE PROT Collected: 07/27/2017 Status: F Source: [place] 4:00 AM [facility] REPOSITORY TYPE CODE TESTS RESULT OUT OF RANGE REFERENCE UNITS LAB L100.0470 0.00-0.50 mg/dL High 1.08 C-REACTIVE PROT Result Comment: STATED NORMAL RANGE IS FOR ADULTS ONLY. NO NORMAL RANGE HAS BEEN ESTABLISHED FOR CHILDREN. Performed By: #### L100.0010, L100.0030, L100.0470, L304.0470 #### [facility] [address] [place] [id number] VITAMIN D Collected: 07/27/2017 Status: F Source: [place] 4:00 [facility] REPOSITORY TYPE CODE TESTS RESULT OUT OF RANGE REFERENCE UNITS LAB L304.0470 30-100 ng/mL Normal VITAMIN D 35.7 Performed By: #### L100.0010, L100.0030, L100.0470, L304.0470 #### [facility] [address] [place] [address] Observed: 07/26/2017 Status: F Source: [facility] 6:41 PM HOSPITAL REPOSITORY Comment: abn echo No Growth Performed By: #### M105.0000 #### [facility] - LABORATORY [address] [place] [address] PROGRESS Observed: 07/26/2017 Status: COMPLETED Source: [place] 6:20 PM [facility] [place] REPOSITORY HNO ID: [id number] Author: Rakan Ni Service: (none) Author Type: (none) Type: Progress Notes Filed: 12/21/2017 6:05 PM Note Text: [place] [address] QUICK NOTE Patient: VLADDALIA RAKAN CISNEROS D.O. [id number] [age] F Status: ADM IN [facility] 1- Report Date AND Time: 07/26/171819 Change Of Status Additional Notes echo normalEF increase gradient out aortic outflow why see has no symtpims at all perior to avr she had marked paul <Electronically signed by RAKAN NI D.O.> 07/27/17 1225 RAKAN NI D.O. << Signature on File>> Reported By: RAKAN NI D.O. Signed By: RAKAN NI D.O. Tests performed at: [address] [address] PTT Collected: 07/26/2017 Status: F Source: [facility] 11:51 AM HOSPITAL REPOSITORY TYPE CODE TESTS RESULT OUT OF RANGE REFERENCE UNITS LAB L200.1642 25.1-36.5 secs High PTT 56.3 Result Comment: Heparin Protocol Therapeutic Range = 54.0-90.0 secs Performed By: #### L200.1642 #### [facility] [address] [place] [id number] HISTORY PHYSICAL Observed: 07/26/2017 Status: COMPLETED Source: [place] 6:57 AM [facility] REPOSITORY HNO ID: [id number] Author: Mara Cuello Service: (none) Author Type: Nurse Practitioner Type: HANDP Filed: 12/21/2017 6:03 PM Note Text: [place] [address] HISTORY AND PHYSICAL Patient: DALIA CHU Attending: RAKAN NI D.O. PCP: [id number] [age] F Status: ADM IN [facility] 1- Report Date AND Time: 07/26/17 0657 MARA CUELLO 07/26/17 0657: [facility] Chief Complaint Subtherapeutic INR History Of Present Illness Patient was seen in our [place] office last . INR at that time was noted to be 7.1. Her coumadin was held x 2 days. Repeat INR yesterday showed INR <2. She does have a mechanical mitral and aortic valve, along with afib. This makes her extremely high risk for an emoblic event, therefore she was admitted for heparin therapy until her INR was therapeutic. She denies any c/o chest pain or discomfort. Denies any c/o SOB. She does c/o increased fatigue over the past 2-3 weeks, as well as an intermittent foggy feeling. She denies any c/o cough, fever, or chills. She did see Dr. Jerez last . She had a mechanical fall at home and developed an hemorrhagic effusion on her left knee. She had pain , pressure in the joint an difficulty ambulating. She reports he aspirated blood from the knee. Since then, pain improved and ease of ambulation improved. She has no history of obstructive CAD. Her last stress was completed in 2014 with no evidence of ischemia. Her afib at that time was not well controlled, therefore an EF was not calculated. She did have her mitral valve and aortic valve replaced with a St. Ancelmo mechanical valve years ago at [place]. I don't have a copy of the op report for review. Her last echo was completed in 2015 and showed a normal EF 65% with well seated mitral and aortic valve. Both valves are functioning normally. There is mild aortic regurgitation noted. The echo did show severe tricuspid regurgitation. She, also, has a history of paroxysmal afib. She tells me she has been out of rhythm for some time. She is currently on rhythmol 150mg TID, but she has only been taking it BID. She tells me her meds were recently adjusted for her afib. She has been on sotalol and flecainide in the past, failed both of these in the past. She has not had a cardioversion since 2014. Vitals: Temp 98.1, HR 63, Resp 18, Bp 109/71, 95%. Labs: NA 141, K 3.8, Cr 0.5, WBC 5.9, Hgb 11.6, Hct 35.4, platelets 173, TSH 1.01, mag 2.0. Social Hx: Smokes 1pack q 2-3 days, denies any use of ETOH or illicit drugs Patient Health History Medical Problems A-fib HTN (hypertension) INR (international normal ratio) abnormal Subtherapeutic international normalized ratio (INR) Surgical Problems Aortic valve replaced Hip joint replacement by other means Mitral valve replaced S/P aortic valve and mitral valve replacement Allergies Coded Allergies: amoxicillin (From AUGMENTIN) (Severe, RASH (ALLERGY) 07/25/17) clavulanic acid (From AUGMENTIN) (Severe, RASH (ALLERGY) 07/25/17) Home Medications Reported Medications Amlodipine* Besylate (Norvasc*) 5 MG PO QDAY Propafenone Hcl* (Rythmol*) 150 MG PO BID Warfarin* Sod (Coumadin*) 8 MG PO Labs/Vitals/Meds Coagulation Range/Units 07/26 07/26 07/26 07/25 0544 0421 0011 1627 Coagulation PT 9.4 - 12.5 secs 16.1 H 14.0 H INR 1.4 1.2 APTT 25.1 - 36.5 secs 62.0 H 47.9 H 28.7 Hematology Range/Units 07/26 07/25 0421 1627 Hematology WBC 4.5 - 10.0 x10(3) 5.9 8.0 RBC 3.30 - 5.00 x10(6) 3.83 3.82 Hgb 12.0 - 16.0 g/dL 11.6 L 11.7 L Hct 36.0 - 48.0 % 35.4 L 35.2 L MCV 80.0 - 99.0 fl 92.4 92.3 MCH 28.5 - 32.9 pg 30.2 30.6 MCHC 33.0 - 36.0 g/dL 32.7 L 33.1 RDW 12.5 - 15.7 % 13.9 14.3 Plt Count 150 - 450 X10(3) 173 172 MPV 7.5 - 9.5 fl 9.0 8.5 Neut % (Auto) 45.0 - 73.0 % 66.6 75.4 H Lymph % (Auto) 16.0 - 48.0 % 21.7 13.5 L Millard % (Auto) 4.3 - 11.2 % 9.3 10.2 Eos % (Auto) 0.5 - 4.9 % 1.9 0.4 L Baso % (Auto) 0.0 - 1.0 % 0.5 0.5 Neut # (Auto) 1.40 - 6.50 x10(3) 3.90 6.00 Lymph # (Auto) 1.00 - 3.50 x10(3) 1.30 1.10 Millard # (Auto) 0.30 - 0.80 x10(3) 0.50 0.80 Eos # (Auto) 0.00 - 0.54 x10(3) 0.10 0.00 Baso # (Auto) 0.00 - 0.10 x10(3) 0.00 0.00 Chemistry Range/Units 07/25 1627 Chemistry Sodium 135 - 145 mmol/L 141 Potassium 3.5 - 5.0 mmol/L 3.8 Chloride 98 - 107 mmol/L 103 Carbon Dioxide 22 - 29 mmol/L 26 Anion Gap 15 - 22 mmol/L 15.8 BUN 8 - 23 mg/dL 11 Creatinine 0.50 - 0.90 mg/dL 0.57 Est GFR ( Amer) > 60 ml/min/1.73m2 Est GFR (Non-Af Amer) > 60 ml/Min/1.73m2 Glucose 82 - 115 mg/dL 114 Calcium 8.8 - 10.2 mg/dL 9.5 Magnesium 1.6 - 2.4 mg/dL 2.0 TSH 0.45 - 4.50 uIU/mL 1.01 Vital Signs Date Time Temp Pulse Resp B/P B/P Pulse O2 O2 Flow FiO2 Mean Ox Delivery Rate 07/26 0343 98.1 63 18 109/71 95 06/05 2333 98.1 59 18 96/65 97 /05 2028 62 91/57 / 1926 62 91/57 06/05 1515 97.6 75 20 130/69 99 06/05 1410 98.0 72 16 115/69 98 Intake AND Output 07/26 0700 06/05 2300 06/05 1500 Intake Total 173 230 Output Total 700 Balance 173 -470 Review of Systems Constitutional Malaise/Fatigue. Denies: Anxiety, Body Aches, Pain, Chills, Fever, Weakness, Hypersomnolence, Difficulty Sleeping, Night Sweats, Anorexia, Appetite - Increased, Appetite - Decreased, Unexplained Weight Loss, Unexpalined Weight Gain, Other, General Health is:. Eyes Denies: Diplopia, Glaucoma, Photophobia, Change in Visual Acuity, Blurred Vision, Other. ENT Denies: Ear Pain, Ear Discharge/Wax, Chronic Ear Infections, Tinnitus, Hearing Loss, Nasal Pain, Nasal Discharge, Nasal Congestion, Mouth Pain, Mouth Swelling, Dry Mouth, Throat Swelling, Throat Pain, Tongue Swelling, Bleeding, Vertigo, Other. Cardiovascular Arrhythmia. Denies: Angina, CHF, Cardiomyopathy, Claudication, Cyanosis, Dizziness, DVT, Dyspnea on exertion, Edema, Hemoptysis, Night Sweats, Orthopnea, Jaw Pain, Palpitations, PVD , Phlebitis, Poor Exercise Tolerance, Rheumatic Fever, Shortness of Breath, Syncope, Tachycardia, Other. Pulmonary Denies: Asbestos Exposure, Asthma, Cough, Hemoptysis, Hx of Pulmonary Embolism, Hypersomnolence, Orthopnea, Pleuritic Chest Pain, PND, Silcosis, Poor Sleep Quality, Snoring , Sputum Production, Tuberculosis, Wheezing, Pneumoconiosis, Short of Breath, Other. Gastrointestinal Denies: Nausea, Vomiting, Abdominal Pain, Constipation, Diarrhea, Diverticulosis, Dysphagia, GERD, Hematemesis, Hematochezia, Hepatitis, Jaundice, Melena, Peptic Ulcer Disease, Other. Genitourinary Denies: Dysuria, Frequency, Incontinence, Hematuria, Retention, Kidney Stones, Frequent UTI' s, Other. Musculoskeletal Pain (left knee). Denies: Ambulatory Dysfunction, Arthralgias, Intermittent Claudication, Myalgia, Paralysis, Paresthesia, Tremors, Weakness, Other. Skin Denies: Alopecia, Ecchymosis, Eczema, Lesions, Masses, Petechiae, Pruritis, Purpura, Rashes, Varicose Veins, Other. Neurological Denies: Ambulatory Dysfunction, Ataxia, CVA, Dysphagia, Epilepsy, Constant Headaches, Head Injury, Memory Loss, Paralysis, Paresthesia, Change in Speech, Syncope, TIA, Vertigo, Other. Psych/Social Issues Denies: Alcoholism, Anxiety, Depression, Hallucinations, Homicidal Thoughts, Memory Loss, Paranoia, Personality Change, Psychosis, Schizophrenia, Suicidal Thoughts, Other. Endocrine Denies: Diabetes, Polyphagia, Polyuria, Thyroid Disease, Other. All Other Systems Other systems reviewed and are negative. Problems Prob/AP Current Problems 1. Subtherapeutic international normalized ratio (INR) Assessment/Plan Patient's INR jumped 7.1 last week in the outpatient setting. Coumadin held x 2 days and repeat INR yesterday 1.4. Patient with persistent afib and 2 - mechanical valves, high risk for embolic event. Admitted for heparin therapy until INR is therapeutic. Goal for INR 2.5 - 3.5. Continue with heparin until INR 2.5 or > 2. S/P aortic valve and mitral valve replacement Assessment/Plan S/p St. Ancelmo valves in the aortic and mitral position. Last echo 2015 with well seated valves and normal valvular function. Audible click in both positions -- will repeat echo. 3. A-fib Assessment/Plan Persistent -- continues with rhythmol 150mg BID. Has been on sotalol and flecainide in the past. Failed both. Will continue with rhythmol at this time. Consider cardioversion once INR is therapeutic. Can follow and arrange as an outpatient. 4. HTN (hypertension) Assessment/Plan Controlled Plan Plans Activity Continue Current Diet Continue Current Nursing See orders Medications/IV Plans Modify Medications Diagnostics Labs Ordered, Echo Ordered Condition No Change/No Better, Improving/Stable RAKAN NI D.O. 07/26/17 1820: Problems Prob/AP Current Problems 1. Subtherapeutic international normalized ratio (INR) Assessment/Plan On Mon:Jul 26, 2017 MARA CUELLO wrote Patient's INR jumped 7.1 last week in the outpatient setting. Coumadin held x 2 days and repeat INR yesterday 1.4. Patient with persistent afib and 2 - mechanical valves, high risk for embolic event. Admitted for heparin therapy until INR is therapeutic. Goal for INR 2.5 - 3.5. Continue with heparin until INR 2.5 or > 2. S/P aortic valve and mitral valve replacement Assessment/Plan On Mon:Jul 26, 2017 MARA CUELLO wrote S/p St. Ancelmo valves in the aortic and mitral position. Last echo 2015 with well seated valves and normal valvular function. Audible click in both positions -- will repeat echo. 3. A-fib Assessment/Plan On Mon:Jul 26, 2017 MARA CUELLO wrote Persistent -- continues with rhythmol 150mg BID. Has been on sotalol and flecainide in the past. Failed both. Will continue with rhythmol at this time. Consider cardioversion once INR is therapeutic. Can follow and arrange as an outpatient. 4. HTN (hypertension) Assessment/Plan On Mon:Jul 26, 2017 MARA CUELLO wrote Controlled Plan Plans Additional Comments not able for dc till inr greater than 2.2 <Electronically signed by MARA CUELLO C.N.P.> 07/26/17 0717 * <Electronically signed by RAKAN NI D.O.> 07/27/17 1225 MARA CUELLO C.N.P., WAYNE D D.O. << Signature on File>> Reported By: MARA CUELLO C.N.P. Signed By: RAKAN NI D.O. Tests performed at: [address] [address] PTT Collected: 07/26/2017 Status: F Source: [facility] 5:44 AM HOSPITAL REPOSITORY TYPE CODE TESTS RESULT OUT OF RANGE REFERENCE UNITS LAB L200.1642 25.1-36.5 secs High PTT 62.0 Result Comment: Heparin Protocol Therapeutic Range = 54.0-90.0 secs Performed By: #### L200.1642 #### [facility] [address] [place] [id number] CBC Collected: 07/26/2017 Status: F Source: [facility] 4:21 AM HOSPITAL REPOSITORY TYPE CODE TESTS RESULT OUT OF RANGE REFERENCE UNITS LAB L200.0100 4.5-10.0 x10(3) Normal WBC 5.9 LAB L200.0200 3.30-5.00 x10(6) Normal RBC 3.83 LAB L200.0210 12.0-16.0 g/dL Low HGB 11.6 LAB L200.0220 36.0-48.0 % Low HCT 35.4 LAB L200.0230 80.0-99.0 fl Normal MCV 92.4 LAB L200.0240 28.5-32.9 pg Normal MCH 30.2 LAB L200.0250 33.0-36.0 g/dL Low MCHC 32.7 LAB L200.0260 12.5-15.7 % Normal RDW 13.9 LAB L200.0270 150-450 X10(3) Normal PLT 173 LAB L200.0290 7.5-9.5 fl Normal MPV 9.0 LAB L200.0300 45.0-73.0 % Normal NEUT% 66.6 LAB L200.0310 16.0-48.0 % Normal LYMPH% 21.7 LAB L200.0320 4.3-11.2 % Normal MONO% 9.3 LAB L200.0330 0.5-4.9 % Normal EOS% 1.9 LAB L200.0340 0.0-1.0 % Normal BASO% 0.5 LAB L200.0350 1.40-6.50 x10(3) Normal NEUT# 3.90 LAB L200.0360 1.00-3.50 x10(3) Normal LYMPH# 1.30 LAB L200.0370 0.30-0.80 x10(3) Normal MONO# 0.50 LAB L200.0380 0.00-0.54 x10(3) Normal EOS# 0.10 LAB L200.0390 0.00-0.10 x10(3) Normal BASO# 0.00 Performed By: #### L200.0010 #### [facility] [address] [place] [address] PT Collected: 07/26/2017 Status: F Source: [facility] 4:21 AM HOSPITAL REPOSITORY TYPE CODE TESTS RESULT OUT OF RANGE REFERENCE UNITS LAB L200.1612 9.4-12.5 secs High PROTIME 16.1 LAB L200.1622 Normal INR 1.4 Result Comment: COUMADIN PROTOCOLS INR values are generated for use in patients on coumadin. INR values stabilize 7 days after the start of coumadin or changes in coumadin dosage. The usual TARGET/INR range is: INDICATION INR RANGE Prophylaxis/treatment of: Venous Thrombosis, Pulmonary Embolism 2.0-3.0 Prevention of systemic embolism from: Tissue heart valves 2.0-3.0 Acute myocardial infarction (to prevent systemic embolism) 2.0-3.0 AMI (to prevent recurrent VT) 2.5-3.5 Valvular heart disease 2.0-3.0 Atrial fibrillation 2.0-3.0 Mechanical prosthetic valves (high risk) 2.5-3.5 Bileaflet mechanical valve in aortic position 2.0-3.0 Presence of Lupus Anticoagulant or Antiphospholipid Antibodies 2.5-3.5 PANIC VALUE: GREATER THAN OR EQUAL TO 4.5 Performed By: #### L200.1602 #### [facility] [address] [place] [address] PTT Collected: 07/26/2017 Status: F Source: [facility] 12:11 AM HOSPITAL REPOSITORY TYPE CODE TESTS RESULT OUT OF RANGE REFERENCE UNITS LAB L200.1642 25.1-36.5 secs High PTT 47.9 Result Comment: Heparin Protocol Therapeutic Range = 54.0-90.0 secs Performed By: #### L200.1642 #### [facility] [address] [place] [address] ECHO COMPLETE Observed: 07/26/2017 Status: F Source: [place] 12:00 AM [facility] [place] [address] HEALTH INFORMATION MANAGEMENT CARDIOLOGY REPORT Patient: STEFANI CHUZARENETTA Khalil RAKAN NI D.O. [id number] [age] F Status: DIS Phan [facility] 2070-B Exam # Type/Exam [id number] CARD / ECHO COMPLETE ECHOCARDIOGRAM REPORT DATE OF SERVICE 07/26/2017. REFERRING PHYSICIAN Dr. Rakan Ni. 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 WEIGHT 115. BLOOD PRESSURE 109/71. 2D/M-MODE MEASUREMENTS Pt VALUES NORMALS IVS (Ed) 1.1 cm 0.6-1.2 cm LVP Wall (Ed) 1.5 cm 0.6-1.2 cm LVID (Ed) 3.8 cm 3.8-5.0 cm LVID (Es) 2.5 cm 2.2-3.4 cm L.A. Diameter 4.2 cm 1.5-4.0 cm Root Diameter 2.7 cm 2.0-3.5 cm ESTIMATED EJECTION FRACTION 65 to 70%. TECHNICAL DESCRIPTION The patient was imaged in the standard M-mode and 2-D views. Continuous wave and pulsed Doppler interrogation were performed. Color flow was performed. FINDINGS 1. Left Ventricle: Concentric left ventricular hypertrophy is seen. Hyperdynamic left ventricular function seen. Ejection fraction 65 to 70%. 2. Left Atrium: Left atrial size is increased. 3. Right Ventricle: Right sided chambers are normal. 4. Right Atrium: Right sided chambers are normal. 5. Aortic Valve: The aortic valve there is an artificial valve, metallic, well seated. No paravalvular leak seen. 6. Mitral Valve: Metallic valve in the mitral position is noted. The posterior aspect seems to be really thick. Valve area is noted to be normal. There is a moderate degree of mitral regurgitation very eccentric along the lateral free wall. 7. Pulmonic Valve: The pulmonic valve is normal. 8. Tricuspid Valve: Mild degree of tricuspid regurgitation. 9. Aorta: Ascending aorta is slightly atherosclerotic. 10. Pericardium: No evidence of pericardial fluid noted. 11. Intracardiac Masses: No evidence of masses noted. 12. PA pressure is 23 mmHg. CONCLUSION The patient completed echocardiogram and demonstrates concentric left ventricular hypertrophy. Ejection fraction is 65 to 70%. Artificial tissue valve in the mitral aortic position noted. Peak gradient out the outflow tract is 70 mmHg. Mean is 60. This gives a valve area of 0.5. Clinical correlation for severe aortic stenosis is warranted. The mitral valve is also a metallic valve. The parasternal long axis view seems to be very thick. Endocarditis is a possibility or pannus of the mitral valve which is a thrombin formation of the valve. MANAV should be considered. <Electronically signed by RAKAN NI D.O.> 08/09/17 0712 RAKAN NI D.O. cc: MARA CUELLO C.N.P.; RAKAN NI D.O. << Signature on File>> Reported By: RAKAN NI D.O. Signed By: RAKAN NI D.O. Tests performed at: [address] [id number] CBC Collected: 07/25/2017 Status: F Source: [facility] 4:27 PM HOSPITAL REPOSITORY TYPE CODE TESTS RESULT OUT OF RANGE REFERENCE UNITS LAB L200.0100 4.5-10.0 x10(3) Normal WBC 8.0 LAB L200.0200 3.30-5.00 x10(6) Normal RBC 3.82 LAB L200.0210 12.0-16.0 g/dL Low HGB 11.7 LAB L200.0220 36.0-48.0 % Low HCT 35.2 LAB L200.0230 80.0-99.0 fl Normal MCV 92.3 LAB L200.0240 28.5-32.9 pg Normal MCH 30.6 LAB L200.0250 33.0-36.0 g/dL Normal MCHC 33.1 LAB L200.0260 12.5-15.7 % Normal RDW 14.3 LAB L200.0270 150-450 X10(3) Normal PLT 172 LAB L200.0290 7.5-9.5 fl Normal MPV 8.5 LAB L200.0300 45.0-73.0 % High NEUT% 75.4 LAB L200.0310 16.0-48.0 % Low LYMPH% 13.5 LAB L200.0320 4.3-11.2 % Normal MONO% 10.2 LAB L200.0330 0.5-4.9 % Low EOS% 0.4 LAB L200.0340 0.0-1.0 % Normal BASO% 0.5 LAB L200.0350 1.40-6.50 x10(3) Normal NEUT# 6.00 LAB L200.0360 1.00-3.50 x10(3) Normal LYMPH# 1.10 LAB L200.0370 0.30-0.80 x10(3) Normal MONO# 0.80 LAB L200.0380 0.00-0.54 x10(3) Normal EOS# 0.00 LAB L200.0390 0.00-0.10 x10(3) Normal BASO# 0.00 Performed By: #### L200.0010 #### [facility] [address] [place] [address] PT Collected: 07/25/2017 Status: F Source: [facility] 4:27 PM HOSPITAL REPOSITORY TYPE CODE TESTS RESULT OUT OF RANGE REFERENCE UNITS LAB L200.1612 9.4-12.5 secs High PROTIME 14.0 LAB L200.1622 Normal INR 1.2 Result Comment: COUMADIN PROTOCOLS INR values are generated for use in patients on coumadin. INR values stabilize 7 days after the start of coumadin or changes in coumadin dosage. The usual TARGET/INR range is: INDICATION INR RANGE Prophylaxis/treatment of: Venous Thrombosis, Pulmonary Embolism 2.0-3.0 Prevention of systemic embolism from: Tissue heart valves 2.0-3.0 Acute myocardial infarction (to prevent systemic embolism) 2.0-3.0 AMI (to prevent recurrent VT) 2.5-3.5 Valvular heart disease 2.0-3.0 Atrial fibrillation 2.0-3.0 Mechanical prosthetic valves (high risk) 2.5-3.5 Bileaflet mechanical valve in aortic position 2.0-3.0 Presence of Lupus Anticoagulant or Antiphospholipid Antibodies 2.5-3.5 PANIC VALUE: GREATER THAN OR EQUAL TO 4.5 Performed By: #### L200.1602, L200.1642 #### [facility] - [facility] [address] [place] [address] PTT Collected: 07/25/2017 Status: F Source: [facility] 4:27 PM HOSPITAL REPOSITORY TYPE CODE TESTS RESULT OUT OF RANGE REFERENCE UNITS LAB L200.1642 25.1-36.5 secs Normal PTT 28.7 Result Comment: Heparin Protocol Therapeutic Range = 54.0-90.0 secs Performed By: #### L200.1602, L200.1642 #### [facility] [address] [place] [address] BMP Collected: 07/25/2017 Status: F Source: [facility] 4:27 PM HOSPITAL REPOSITORY TYPE CODE TESTS RESULT OUT OF RANGE REFERENCE UNITS LAB L100.0060 82-115 mg/dL GLUCOSE Normal 114 LAB L100.0110 8-23 mg/dL BUN Normal 11 LAB L100.0131 0.50-0.90 mg/dL Normal CREATININE 0.57 LAB L100.0140 8.8-10.2 mg/dL CALCIUM Normal 9.5 LAB L100.0150 135-145 mmol/L SODIUM Normal 141 LAB L100.0160 3.5-5.0 mmol/L Normal POTASSIUM 3.8 LAB L100.0170 98-107 mmol/L CHLORIDE Normal 103 LAB L100.0180 22-29 mmol/L TCO2 Normal 26 LAB L100.0185 15-22 mmol/L ANION Normal GAP 15.8 LAB L100.0274 eGFR Normal nonAFR Felipa > 60 ml/Min/1.73m 2 LAB L100.0275 eGFR if Normal AFR FELIPA > 60 ml/min/1.73m 2 Result Comment: eGFR >= 60 Indicates normal kidney function. * eGFR IS AN ESTIMATE * (AFR FELIPA = ) (non-AFR AM = NON-) MDRD calculation used in the eGFR should not be used to dose medications. For further limitations of the eGFR please refer to the Physician Website or the National Kidney Disease Education Program website (www.nkdep.nih.gov). Performed By: #### L100.0010, L100.0390, L304.0140 #### - LABORATORY [address] [place] [address] MAGNESIUM Collected: 07/25/2017 Status: F Source: [place] 4:27 [facility] REPOSITORY TYPE CODE TESTS RESULT OUT OF RANGE REFERENCE UNITS LAB L100.0390 1.6-2.4 mg/dL Normal MAGNESIUM 2.0 Performed By: #### L100.0010, L100.0390, L304.0140 #### [facility] [address] [place] [address] TSH Collected: 07/25/2017 Status: F Source: [facility] 4:27 [facility] REPOSITORY TYPE CODE TESTS RESULT OUT OF RANGE REFERENCE UNITS LAB L304.0140 0.45-4.50 uIU/mL Normal TSH 1.01 Performed By: #### L100.0010, L100.0390, L304.0140 #### [facility] [address] [place] [id number] PRO Collected: 07/24/2017 Status: F Source: [facility] 2:46 PM [facility] REPOSITORY TYPE CODE TESTS RESULT OUT OF REFERENCE UNITS RANGE LAB PT(LOINC) 9.3-14.6 seconds Protime 14.2 LAB INR(LOINC) 0.9-1.2 ratio PT High International 1.4 Ratio Result Comment: Standard Dose 2.0 - 3.0 High Dose 2.5 - 3.5 The recommended therapeutic range for oral anticoagulant therapy is: LOW RISK: Prophylaxis of venous thrombosis INR: 2.0 - 3.0 Treatment of pulmonary embolism 2.0 - 3.0 Prevention of systemic embolism 2.0 - 3.0 HIGH RISK: Mechanical prosthetic valves 2.5 - 3.5 Performed By: #### PRO #### [address] [address] PRO Collected: 07/20/2017 Status: F Source: [place] 1:27 PM [facility] REPOSITORY TYPE CODE TESTS RESULT OUT OF RANGE REFERENCE UNITS LAB PT(LOINC) 9.3-14.6 seconds Protime Abnormal 68.4 Alert LAB INR(LOINC 0.9-1.2 ratio ) PT Abnormal International 7.2 Alert Ratio Result Comment: Standard Dose 2.0 - 3.0 High Dose 2.5 - 3.5 The recommended therapeutic range for oral anticoagulant therapy is: LOW RISK: Prophylaxis of venous thrombosis INR: 2.0 - 3.0 Treatment of pulmonary embolism 2.0 - 3.0 Prevention of systemic embolism 2.0 - 3.0 HIGH RISK: Mechanical prosthetic valves 2.5 - 3.5 Performed By: #### PRO #### [address] [address] PRO Collected: 07/06/2017 Status: F Source: [place] 11:03 AM [facility] REPOSITORY TYPE CODE TESTS RESULT OUT OF REFERENCE UNITS RANGE LAB PT(LOINC) 9.3-14.6 seconds Protime High 37.6 LAB INR(LOINC) 0.9-1.2 ratio PT High International 3.8 Ratio Result Comment: Standard Dose 2.0 - 3.0 High Dose 2.5 - 3.5 The recommended therapeutic range for oral anticoagulant therapy is: LOW RISK: Prophylaxis of venous thrombosis INR: 2.0 - 3.0 Treatment of pulmonary embolism 2.0 - 3.0 Prevention of systemic embolism 2.0 - 3.0 HIGH RISK: Mechanical prosthetic valves 2.5 - 3.5 Performed By: #### PRO #### [address] [address] PRO Collected: 05/16/2017 Status: F Source: [facility] 3:09 PM [facility] REPOSITORY TYPE CODE TESTS RESULT OUT OF REFERENCE UNITS RANGE LAB PT(LOINC) 9.8-13.5 seconds Protime High 27.7 LAB INR(LOINC) 0.9-1.2 ratio PT High International 2.7 Ratio Result Comment: Standard Dose 2.0 - 3.0 High Dose 2.5 - 3.5 The recommended therapeutic range for oral anticoagulant therapy is: LOW RISK: Prophylaxis of venous thrombosis INR: 2.0 - 3.0 Treatment of pulmonary embolism 2.0 - 3.0 Prevention of systemic embolism 2.0 - 3.0 HIGH RISK: Mechanical prosthetic valves 2.5 - 3.5 Performed By: #### PRO #### [address] [address] ALLERGIES ALLERGIES DATE TYPE / CODE NAME / CODE REACTION SEVERITY SOURCE 02/16/2018 Drug Sulfa Rash Unknown [facility] Allergy/4160 (Sulfonamide Hospital 52258(SNOMED Antibiotics)/ Repository CT) [id number](RX NORM) ENCOUNTERS ENCOUNTERS ADMIT/DISCHARGE ACCOUNT NUMBER ADMITTING ENCOUNTER LOCATION SOURCE CLASS 02/16/2018/02/17/20 [id number] Ambulatory BMSBuilding: [place] [facility] Repository 02/08/2018 [id number] Ambulatory BBuilding:[facility] Repository 01/30/2018 [id number] Ambulatory [facility] Hospital ding:MTLAB Repository 12/30/2017/12/31/19 [id number] Ambulatory BMSBuilding: [place] 18 BMS.[facility] Repository 07/25/2017/07/29/19 [id number] RAKAN NI Inpatient UNIBuilding: [place] 18 [facility] B Repository 05/16/2017 [id number] Ambulatory BBuilding:[facility] Repository PAYERS PAYERS ENCOUNTER GUARANTOR PAYER SUBSCRIBER SOURCE 02/16/2018 DALIA Khalil Primary DALIA Ortega [id number] [place] Insurance:MEDICARE CONTIDOB: [place], [place] PART A BPolicy Number: [id number] Hospital [address]Lyu: [phone] [id number] Repository [phone] () Date:2018-02-08 02/16/2018 Secondary DALIA J [place] Insurance:HUMANA CONTIDOB: [facility] [id number] Hospital Number: Repository [id number] Date:[id number] [address]BK: 02/16/2018 Tertiary NOT GIVENUNK [place] Insurance:SELF PAY [facility] Number: Effective Repository Date:2018-02-14 02/08/2018 DALIA J Primary DALIA J [facility] CONTIDOB: Insurance:AETNA CONTIDOB: [facility] [id number] [facility] [id number] Repository [facility], Number: 4 [facility] [address]Ros: [id number] [place] Date:2017-02-20 [address]Mbx: [phone] () [id number] [phone] Name:[facility] [address] ()Tel: [phone] EBONY Krishnan [phone]: [phone] (DG) 02/08/2018 [facility] Insurance:HUMANA CONTIDOB: [facility] Number: [id number] Repository [id number] [facility] Date:2017-06-26 - [place] [id number] [address]Gnq: ([phone]) Name:[employer] [phone] [place] [address] ()Tel: [phone]: ([phone]) [phone] 01/30/2018 DALIA Khalil Primary DALIA J [place] [id number] [facility] Insurance:HUMANA CONTIDOB: [facility] [id number] Hospital [address]Gsz: 330) Number: Repository [phone] () [id number] Date:1993-57-[address] [place] [phone]: 01/30/2018 Secondary NOT GIVENUNK [place] Insurance:SELF PAY [facility] Number: Effective Repository Date:2018-01-30 12/30/2017 DALIA J Primary DALIA J [place] [id number] [place] Insurance:MEDICARE CONTIDOB: [place] PART A BPolicy Number: [id number] Hospital [address]Cje: (492) [id number] Repository [phone] (HP) Date:2017-12-30 12/30/2017 Secondary DALIA J [place] Insurance:HUMANA CONTIDOB: [facility] [id number] Number: Repository [id number] Date:2006-51-66[address] [place] [phone]: 12/30/2017 Tertiary NOT GIVENUNK [place] Insurance:SELF PAY [facility] Number: Effective Repository Date:2017-12-30 07/25/2017 DALIA J Primary DALIAPsychiatric [id number] [facility] Insurance:[place], [place] MEDICAREPolicy Number: Repository [id number]: 330 [id number] [phone] (HP) Date:[address], [place] [address]HC: 07/25/2017 Secondary DALIA J [place] [facility] Insurance:[facility] SECONDARY Repository ONLYPolicy Number: [id number] Date:[address] [place] [address]OK: [phone] 05/16/2017 DALIA J Primary DALIA J [facility] CONTIDOB: Insurance:MEDICARE CONTIDOB: [facility] [id number] PART BPolicy Number: [id number] [place] [address] [id number] 4 [place] [address]Ltt: Date:2010-11-20 [place], [place] [id number] [address]Cyz: [phone] () Name:PCGS [phone] Administrators LLCPO ()Tel: (624) [address] [address], [place] [phone] (WP) [phone]: 05/16/2017 Secondary DALIA [facility] Insurance:HUMANA CONTIDOB: [facility] [id number] Repository Number: 4 [place] [id number] [place], [place] Date:2016-09-07 [address]Ocd: [phone] [id number] [phone] Name:CPO Jean ()Tel: [phone], [place] [phone] (WP) [phone]:
== END ==
PROVIDERS: Family Provider Family Medicine; PCP Family Medicine; Referring Provider Family Medicine; Visit Provider Family Medicine
DX: R05 Cough (principal); M54.5 Low back pain
CPT/HCPCS: 71046; 81002

== ENCOUNTER → 2018-06-14 13:31 | Outpatient (CLI) | payer MEDICARE, OTHER, SELFPAY ==
[2018-06-05 14:29] VITALS: BMI 19.7
--- NOTE | 2018-06-14 13:43 | RAD_ITS ---
STUDY: X-RAY - LEFT WRIST REASON FOR EXAM: Female, 72 years old. Pain TECHNIQUE: 3 view(s) of the wrist were obtained. COMPARISON: None. FINDINGS: There is demineralization of the radius and ulna. There is degenerative arthrosis of the radiocarpal articulation. Normal distal radioulnar articulation. There is demineralization of the carpal bones. There is degenerative arthrosis of the carpal articulations. There is degenerative arthrosis of the carpometacarpal articulation of the thumb. Normal second through fifth carpometacarpal articulations. Normal visualized metacarpal bones. The soft tissue structures are unremarkable. 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 Electronically Signed: Blata Campbell MD at 14:02 EDT , Service support ,
== END ==
PROVIDERS: Family Provider Family Medicine; PCP Family Medicine; Referring Provider Family Medicine; Visit Provider Family Medicine
DX: M25.539 Pain in unspecified wrist (principal); G89.29 Other chronic pain
CPT/HCPCS: 73110

== ENCOUNTER → 2018-12-28 10:31 | Outpatient (CLI) | payer MEDICARE, OTHER, SELFPAY ==
[2018-12-27 14:43] VITALS: BMI 20.5
[2018-12-28 12:44] LABS: Absolute Lymphocyte Count 0.86 X10^3/uL (0.83-4.51); Absolute Neutrophil Count 5.8 X10^3/uL (2.0-7.7); Basophil# 0.01 X10^3/uL; Basophil% 0.1 % (0-1); Eosinophil# 0.01 X10^3/uL; Eosinophils% 0.1 % (0-5); Hematocrit 43.2 % (37-47); Hemoglobin 13.6 g/dL (12.0-15.0); Lymphocyte # 0.86 X10^3/ul (4.0); Lymphocyte % 11.8 % (19-41); Mean Corp Hgb Conc 31.5 g/dL (32-36); Mean Corpuscular Hgb 29.6 pg (27.0-32.0); Mean Corpuscular Volume 94.1 fL (81-99); Monocyte% 8.3 % (0-10); NRBC Flagged by Analyzer 0 % (0-5); Neutrophil # 5.76 X10^3/uL (2.7-7.7); Neutrophil % 79.3 % (47-70); Platelet Count 216 K/mm3 (150-450); RBC Distribution Width CV 13.3 % (11.6-14.6); RBC Distribution Width SD 46.4 fl (35.1-43.9); Red Blood Count 4.59 M/mm3 (4.2-5.4); White Blood Count 7.3 K/mm3 (4.4-11.0)
[2018-12-28 13:07] LABS: Erythrocyte Sedimentation Rate 16 mm/hr (0-30)
[2018-12-28 13:46] LABS: Rheumatoid Factor < 10.0 IU/mL (<15); Uric Acid 3.4 mg/dL (2.6-6.0)
== END ==
PROVIDERS: Family Provider Family Medicine; PCP Family Medicine; Visit Provider Family Medicine
DX: M19.90 Unspecified osteoarthritis, unspecified site (principal); M25.50 Pain in unspecified joint
CPT/HCPCS: 36415; 84550; 85025; 85652; 86431

== ENCOUNTER 2019-04-12 10:54 | Outpatient (RCR) | payer MEDICARE, SELFPAY ==
[2018-12-27 14:43] VITALS: BMI 20.5
[2019-04-12 13:14] LABS: International Normalized Ratio 3.3; Prothrombin Time (Protime)PT. 33.8 SECONDS (11.7-14.9)
== END 2019-04-20 23:59 ==
LOC: BIMLAB 10:54
PROVIDERS: PCP Family Medicine; Referring Provider Family Medicine; Visit Provider Family Medicine
DX: I48.20 Chronic atrial fibrillation, unspecified (principal)
CPT/HCPCS: 36415; 85610

== ENCOUNTER 2019-05-03 11:03 | Outpatient (RCR) | payer MEDICARE, SELFPAY ==
[2018-12-27 14:43] VITALS: BMI 20.5
== END 2019-05-21 23:59 ==
LOC: BIMLAB 11:03
PROVIDERS: PCP Family Medicine; Referring Provider Family Medicine; Visit Provider Family Medicine
DX: I48.20 Chronic atrial fibrillation, unspecified (principal)
CPT/HCPCS: 36415; 85610

== ENCOUNTER 2019-08-01 10:30 | Outpatient (RCR) | payer MEDICARE, SELFPAY ==
[2018-12-27 14:43] VITALS: BMI 20.5
[2019-07-25 15:43] LABS: International Normalized Ratio 1.7; Prothrombin Time (Protime)PT. 19.3 SECONDS (11.7-14.9)
[2019-08-01 12:47] LABS: International Normalized Ratio 1.6; Prothrombin Time (Protime)PT. 18.7 SECONDS (11.7-14.9)
== END 2019-08-20 23:59 ==
LOC: BIMLAB 10:30
PROVIDERS: PCP Family Medicine; Referring Provider Family Medicine; Visit Provider Family Medicine
DX: I48.20 Chronic atrial fibrillation, unspecified (principal)
CPT/HCPCS: 36415; 85610

== ENCOUNTER 2019-09-03 10:02 | Outpatient (RCR) | payer MEDICARE, SELFPAY ==
[2018-12-27 14:43] VITALS: BMI 20.5
[2019-09-03 12:38] LABS: International Normalized Ratio 2.9; Prothrombin Time (Protime)PT. 29.8 SECONDS (11.7-14.9)
== END 2019-09-20 23:59 ==
LOC: BIMLAB 10:02
PROVIDERS: PCP Family Medicine; Referring Provider Family Medicine; Visit Provider Family Medicine
DX: I48.20 Chronic atrial fibrillation, unspecified (principal)
CPT/HCPCS: 36415; 85610

== ENCOUNTER 2019-11-05 11:46 | Outpatient (RCR) | payer MEDICARE, SELFPAY ==
[2018-12-27 14:43] VITALS: BMI 20.5
[2019-11-05 15:54] LABS: International Normalized Ratio 3.3; Prothrombin Time (Protime)PT. 33.2 SECONDS (11.7-14.9)
== END 2019-11-20 23:59 ==
LOC: BIMLAB 11:46
PROVIDERS: PCP Family Medicine; Visit Provider Family Medicine
DX: I48.20 Chronic atrial fibrillation, unspecified (principal)
CPT/HCPCS: 36415; 85610

== ENCOUNTER 2019-12-12 13:29 | Outpatient (RCR) | payer MEDICARE, SELFPAY ==
[2018-12-27 14:43] VITALS: BMI 20.5
[2019-12-12 16:27] LABS: Prothrombin Time (Protime)PT. 44.3 SECONDS (11.7-14.9)
[2019-12-12 16:47] LABS: International Normalized Ratio 4.7
== END 2019-12-21 23:59 ==
LOC: BIMLAB 13:29
PROVIDERS: PCP Family Medicine; Referring Provider Family Medicine; Visit Provider Family Medicine
DX: I48.20 Chronic atrial fibrillation, unspecified (principal)
CPT/HCPCS: 36415; 85610

== ENCOUNTER → 2019-12-31 12:28 | Outpatient (CLI) | payer MEDICARE, SELFPAY ==
[2018-12-27 14:43] VITALS: BMI 20.5
[2019-12-31 15:37] LABS: International Normalized Ratio 1.6; Prothrombin Time (Protime)PT. 18.3 SECONDS (11.7-14.9)
== END ==
PROVIDERS: PCP Family Medicine; Referring Provider Family Medicine; Visit Provider Family Medicine
DX: I48.20 Chronic atrial fibrillation, unspecified (principal)
CPT/HCPCS: 36415; 85610

== ENCOUNTER 2020-03-16 14:29 | Outpatient (RCR) | payer MEDICARE, SELFPAY ==
[2018-12-27 14:43] VITALS: BMI 20.5
[2020-03-16 15:30] LABS: International Normalized Ratio 2.9; Prothrombin Time (Protime)PT. 30.3 SECONDS (11.7-14.9)
== END 2020-03-22 23:59 ==
LOC: BIMLAB 14:29
PROVIDERS: PCP Family Medicine; Referring Provider Family Medicine; Visit Provider Family Medicine
DX: I48.20 Chronic atrial fibrillation, unspecified (principal)
CPT/HCPCS: 36415; 85610

== ENCOUNTER 2020-05-13 14:53 | Outpatient (RCR) | payer MEDICARE, SELFPAY ==
[2018-12-27 14:43] VITALS: BMI 20.5
[2020-05-13 18:11] LABS: International Normalized Ratio 2.5; Prothrombin Time (Protime)PT. 26.4 SECONDS (11.7-14.9)
== END 2020-05-20 23:59 ==
LOC: BIMLAB 14:53
PROVIDERS: PCP Family Medicine; Referring Provider Family Medicine; Visit Provider Family Medicine
DX: I48.20 Chronic atrial fibrillation, unspecified (principal)
CPT/HCPCS: 36415; 85610

== ENCOUNTER 2020-07-30 15:02 | Outpatient (RCR) | payer MEDICARE, SELFPAY ==
[2018-12-27 14:43] VITALS: BMI 20.5
[2020-07-30 17:02] LABS: International Normalized Ratio 3.1; Prothrombin Time (Protime)PT. 31.5 SECONDS (11.7-14.9)
== END 2020-08-19 23:59 ==
LOC: BIMLAB 15:02
PROVIDERS: PCP Family Medicine; Referring Provider Family Medicine; Visit Provider Family Medicine
DX: Z79.01 Long term (current) use of anticoagulants (principal)
CPT/HCPCS: 36415; 85610

== ENCOUNTER 2020-11-25 11:19 | Outpatient (RCR) | payer MEDICARE, SELFPAY ==
[2018-12-27 14:43] VITALS: BMI 20.5
[2020-11-25 12:29] LABS: International Normalized Ratio 2.4
== END 2020-12-20 23:59 ==
LOC: BIMLAB 11:19
PROVIDERS: PCP Family Medicine; Referring Provider Family Medicine; Visit Provider Family Medicine
DX: Z79.01 Long term (current) use of anticoagulants (principal)
CPT/HCPCS: 36415; 85610

== ENCOUNTER → 2021-01-27 11:26 | Outpatient (CLI) | payer MEDICARE, SELFPAY ==
[2021-01-27 12:38] LABS: Prothrombin Time (Protime)PT. 30.3 SECONDS (11.7-14.9)
== END ==
PROVIDERS: PCP Family Medicine; Visit Provider Family Medicine
DX: Z79.01 Long term (current) use of anticoagulants (principal)
CPT/HCPCS: 36415; 85610

== ENCOUNTER 2021-03-16 13:15 | Outpatient (CLI) | payer MEDICARE, SELFPAY | END 2021-03-16 23:59 | disposition short-term general hospital (02) | PROVIDERS: PCP Family Medicine; Visit Provider Physician Assistant Surgical | DX: U07.1 COVID-19 (principal) | CPT/HCPCS: 87635; U0003; U0005 ==

== ENCOUNTER 2021-04-16 15:43 | Outpatient (RCR) | payer MEDICARE, SELFPAY ==
[2020-12-21 00:03] VITALS: BMI 20.5
[2021-04-16 16:56] LABS: Prothrombin Time (Protime)PT. 38.4 SECONDS (11.7-14.9)
== END 2021-04-19 23:59 ==
LOC: BIMLAB 15:43
PROVIDERS: PCP Family Medicine; Referring Provider Family Medicine; Visit Provider Family Medicine
DX: Z79.01 Long term (current) use of anticoagulants (principal)
CPT/HCPCS: 36415; 85610

== ENCOUNTER 2021-05-13 15:21 | Outpatient (RCR) | payer MEDICARE, SELFPAY ==
[2021-04-20 00:07] VITALS: BMI 20.5
[2021-04-23 14:52] LABS: Erythrocyte Sedimentation Rate 23 mm/hr (0-30)
[2021-04-23 14:54] LABS: Absolute Lymphocyte Count 1.05 X10^3/uL (0.83-4.51); Absolute Neutrophil Count 3.4 X10^3/uL (2.0-7.7); Basophil# 0.02 X10^3/uL; Basophil% 0.4 % (0-1); Eosinophil# 0.09 X10^3/uL; Eosinophils% 1.7 % (0-5); Hematocrit 38.4 % (37-47); Hemoglobin 12.4 g/dL (12.0-15.0); Lymphocyte # 1.05 X10^3/ul (0.83-4.51); Lymphocyte % 20.3 % (19-41); Mean Corp Hgb Conc 32.3 g/dL (32-36); Mean Corpuscular Hgb 30.3 pg (27.0-32.0); Mean Corpuscular Volume 93.9 fL (81-99); Mean Platelet Vol. 11.5 fl (6.2-12.0); Monocyte# 0.55 X10^3/uL; Monocyte% 10.7 % (0-10); NRBC Flagged by Analyzer 0 % (0-5); Neutrophil # 3.43 X10^3/uL (2.7-7.7); Neutrophil % 66.5 % (47-70); Platelet Count 211 K/mm3 (150-450); RBC Distribution Width CV 14.1 % (11.6-14.6); RBC Distribution Width SD 48.8 fl (35.1-43.9); Red Blood Count 4.09 M/mm3 (4.2-5.4); White Blood Count 5.2 K/mm3 (4.4-11.0)
[2021-04-23 14:56] LABS: International Normalized Ratio 3.6; Prothrombin Time (Protime)PT. 34.9 SECONDS (11.7-14.9)
[2021-04-23 14:57] LABS: ALB/GLOB Ratio 1.1 RATIO (0.9-2.4); AST(SGOT) 21 U/L (15-37); Alanine Aminotransfer ALT/SGPT 16 U/L (13-56); Albumin, Serum 3.7 g/dL (3.2-5.0); Alkaline Phosphatase 91 U/L (45-117); Anion Gap 4 (5-15); BUN 8 mg/dL (7-18); Calcium,Total 9.4 mg/dL (8.5-10.1); Chloride 105 mmol/L (98-107); Creatinine, Serum 0.73 mg/dL (0.55-1.02); EST Glomerular Filtration Rate 83 mL/min (>60); Est Glom Filt Rate - Afr Amer 100 mL/min (>60); Globulin 3.5 g/dL (2.2-4.2); Glucose 101 mg/dL (74-106); Potassium 3.8 mmol/L (3.5-5.1); Protein, Total 7.2 g/dL (6.4-8.2); Sodium Level 138 mmol/L (136-145)
[2021-05-13 17:19] LABS: International Normalized Ratio 1.2
== END 2021-05-20 23:59 | disposition home or self-care (01) ==
LOC: BIMLAB 15:21
PROVIDERS: PCP Family Medicine; Referring Provider Family Medicine; Visit Provider Family Medicine
DX: Z95.2 Presence of prosthetic heart valve (principal)
CPT/HCPCS: 36415; 80053; 85025; 85610; 85652

== ENCOUNTER 2021-06-11 12:27 | Outpatient (RCR) | payer MEDICARE, SELFPAY ==
[2021-05-21 00:13] VITALS: BMI 20.5
[2021-06-11 15:55] LABS: International Normalized Ratio 1.2
== END 2021-06-19 23:59 ==
LOC: BIMLAB 12:27
PROVIDERS: PCP Family Medicine; Referring Provider Family Medicine; Visit Provider Family Medicine
DX: Z95.2 Presence of prosthetic heart valve
CPT/HCPCS: 36415; 85610

== ENCOUNTER 2021-06-28 13:16 | Outpatient (RCR) | payer MEDICARE, SELFPAY ==
[2021-06-20 00:16] VITALS: BMI 20.5
[2021-06-28 14:23] LABS: International Normalized Ratio 1.6; Prothrombin Time (Protime)PT. 18.3 SECONDS (11.7-14.9)
== END 2021-07-20 23:59 ==
LOC: BIMLAB 13:16
PROVIDERS: PCP Family Medicine; Referring Provider Family Medicine; Visit Provider Family Medicine
DX: Z95.2 Presence of prosthetic heart valve; Z79.01 Long term (current) use of anticoagulants
CPT/HCPCS: 36415; 85610

== ENCOUNTER → 2021-06-28 | Outpatient (CLI) | payer MEDICARE, SELFPAY | END | disposition home or self-care (01) | LOC: BIMLAB 12:29 | PROVIDERS: PCP Family Medicine; Visit Provider Family Medicine | DX: Z00.00 Encounter for general adult medical examination without abnormal findings (principal) ==

== ENCOUNTER 2021-08-09 14:56 | Outpatient (RCR) | payer MEDICARE, SELFPAY ==
[2021-07-21 00:29] VITALS: BMI 20.5
[2021-07-26 15:49] LABS: International Normalized Ratio 1.2; Prothrombin Time (Protime)PT. 15.3 SECONDS (11.7-14.9)
[2021-08-09 17:11] LABS: International Normalized Ratio 2.6; Prothrombin Time (Protime)PT. 27.7 SECONDS (11.7-14.9)
== END 2021-08-19 23:59 ==
LOC: BIMLAB 14:56
PROVIDERS: PCP Family Medicine; Referring Provider Family Medicine; Visit Provider Family Medicine
DX: Z95.2 Presence of prosthetic heart valve (principal); Z79.01 Long term (current) use of anticoagulants
CPT/HCPCS: 36415; 85610

== ENCOUNTER 2021-10-28 15:42 | Outpatient (RCR) | payer MEDICARE, SELFPAY ==
[2021-08-20 00:21] VITALS: BMI 20.5
[2021-10-28 16:53] LABS: International Normalized Ratio 3.5
== END 2021-11-19 23:59 ==
LOC: BIMLAB 15:42
PROVIDERS: PCP Family Medicine; Referring Provider Family Medicine; Visit Provider Family Medicine
DX: Z95.2 Presence of prosthetic heart valve (principal)
CPT/HCPCS: 36415; 85610

== ENCOUNTER 2021-12-09 14:45 | Outpatient (RCR) | payer MEDICARE, SELFPAY ==
[2021-11-20 00:14] VITALS: BMI 20.5
[2021-11-23 16:46] LABS: International Normalized Ratio 1.2; Prothrombin Time (Protime)PT. 15.2 SECONDS (11.7-14.9)
[2021-12-09 15:29] LABS: International Normalized Ratio 1.2; Prothrombin Time (Protime)PT. 15.2 SECONDS (11.7-14.9)
== END 2021-12-20 23:59 ==
LOC: BIMLAB 14:45
PROVIDERS: PCP Family Medicine; Referring Provider Family Medicine; Visit Provider Family Medicine
DX: Z95.2 Presence of prosthetic heart valve (principal)
CPT/HCPCS: 36415; 85610

== ENCOUNTER 2022-01-17 15:35 | Outpatient (RCR) | payer MEDICARE, SELFPAY ==
[2021-12-21 00:11] VITALS: BMI 20.5
[2021-12-22 15:34] LABS: International Normalized Ratio 1.4
[2022-01-17 17:12] LABS: International Normalized Ratio 1.4; Prothrombin Time (Protime)PT. 16.7 SECONDS (11.7-14.9)
== END 2022-01-19 23:59 ==
LOC: BIMLAB 15:35
PROVIDERS: PCP Family Medicine; Referring Provider Family Medicine; Visit Provider Family Medicine
DX: Z95.2 Presence of prosthetic heart valve (principal)
CPT/HCPCS: 36415; 85610

== ENCOUNTER 2022-02-16 14:27 | Outpatient (RCR) | payer MEDICARE, SELFPAY ==
[2022-01-20 00:12] VITALS: BMI 20.5
[2022-02-16 15:13] LABS: International Normalized Ratio 1.5; Prothrombin Time (Protime)PT. 17.7 SECONDS (11.7-14.9)
== END 2022-02-19 23:59 ==
LOC: BIMLAB 14:27
PROVIDERS: PCP Family Medicine; Referring Provider Family Medicine; Visit Provider Family Medicine
DX: Z95.2 Presence of prosthetic heart valve (principal)
CPT/HCPCS: 36415; 85610

== ENCOUNTER 2022-05-02 15:38 | Outpatient (RCR) | payer MEDICARE, SELFPAY ==
[2022-02-20 00:12] VITALS: BMI 20.5
[2022-05-02 16:48] LABS: International Normalized Ratio 1.3; Prothrombin Time (Protime)PT. 16.1 SECONDS (11.7-14.9)
== END 2022-05-20 23:59 ==
LOC: BIMLAB 15:38
PROVIDERS: PCP Family Medicine; Referring Provider Family Medicine; Visit Provider Family Medicine
DX: Z79.01 Long term (current) use of anticoagulants (principal)
CPT/HCPCS: 36415; 85610

== ENCOUNTER 2022-06-27 15:36 | Emergency (ER) | payer MEDICARE, SELFPAY ==
[2022-06-27 15:37] VITALS: BP 219/113; PULSE 70; RESP 16; TEMP 36.4; O2SAT 98; BMI 19.9
[2022-06-27 17:33] LABS: Mucous, Urine 0 SEEN /hpf (<or=2+)
[2022-06-27 17:40] LABS: Color, Urine Red (Yellow); Glucose, Dipstick Normal (Normal); Ketone-Dipstick 5 mg/dl (Negative); Leukocyte Esterase-Dipstick 100 /ul (Negative); Nitrite-Dipstick Negative (Negative); Occult Blood-Urine 250 /ul (Negative); Protein-Dipstick 500 mg/dl (Negative); Urine Bilirubin Dipstick Negative (Negative); Urine Clarity Turbid (Clear); Urine Urobilinogen Normal (Normal)
[2022-06-27 17:49] LABS: Red Blood Cells-Urine > 100 SEEN /hpf (0-5); Squamous Epithelial Cells - UA 0-5 SEEN /hpf (5-10); White Blood Cells 25-50 SEEN /hpf (0-5)
[2022-06-27 17:50] LABS: Amorphous Sediment 1+ PHOS; Bacteria RARE /hpf (None Seen)
--- NOTE | 2022-06-27 18:14 | EX.ED.DYSGE1 ---
HPI History of Present Illness Chief Complaint: Complaint Detail of Chief Complaint: Gross hematuria, frequency and dysuria Informant: patient Onset/Context/Timing Onset: Today Context: Sudden Onset Timing: Intermittent Quality: Urinary symptoms with gross hematuria Location: Current Severity: Moderate Maximum Severity: Moderate Worsened by: Patient is on Coumadin Relieved by: Nothing Associated Symptoms Associated Symptoms: No other symptoms Narrative Narrative: Patient is a 76-year-old woman with history of 2 prosthetic valves on Coumadin. Her PT/INR was assessed today. This was done as outpatient. Lab results were not available. Patient denies bleeding of her gums, black or maroon-colored stool or bruising easily. She presents with urinary symptoms of frequency, gross hematuria and dysuria. She has not had a urinary tract infection in some time. She states she has urinated 15 times since this morning. She denies headache, visual, ocular auditory symptoms. She has trouble with speech or swallowing. She denies paresthesia, anesthesia medics. Denies problems with balance or coordination she has no other symptoms. Prior similar symptoms: No Recent Illness/Hospitalization: No [facility] Medical History (Updated 06/27/22 @ 20:[address] Trip Peterson MD) Cancer of pelvic bone Home Medications acetaminophen 500 mg tablet 1,000 mg PO TID PRN PRN Pain #90 tabs 06/15/15 [Rx Last Taken Unknown] cholecalciferol (vitamin D3) 25 mcg (1,000 unit) tablet 2,000 unit PO DAILY #30 tabs 06/15/15 [Rx Last Taken 06/19/15 08:00] Kenalog 40 mg/mL suspension for injection (triamcinolone acetonide) 40 mg intra-articular ONCE #1 mL 06/20/18 [Clinic Last Taken Unknown] warfarin 3 mg tablet 3 mg PO QTUTHSA #60 tabs 05/04/21 [Rx Last Taken Unknown] diltiazem HCl 180 mg capsule,extended release 24 hr 180 mg PO DAILY #90 caps 12/16/21 [Rx Last Taken Unknown] warfarin 5 mg tablet 5 mg PO .COMPLEX #90 tabs 12/22/21 [Rx Last Taken Unknown] citalopram 40 mg tablet (Celexa) 40 mg PO DAILY #90 tabs 06/18/22 [Rx Last Taken Unknown] nitrofurantoin monohydrate/macrocrystals 100 mg capsule 100 mg PO Q12 #10 CAPSULES 06/27/22 [Rx Last Taken Unknown] Allergy/AdvReac Type Severity Reaction Status Date / Time Sulfa (Sulfonamide Allergy Rash Verified 04/21/21 16:01 Antibiotics) Family History Father Lung cancer Mother Heart disease Surgical History (Updated 06/27/22 @ 20:[address] Trip Peterson MD) History of artificial heart valve History of hysterectomy History of total right hip replacement Social History Smoking Status: Unknown if ever smoked alcohol intake: current alcohol intake frequency: holidays/special occasions only substance use type: does not use what type of physical activity do you participate in: none ROS ROS ED Constitutional Constitutional ED: Denies chills, fever(s), subjective, sweats or weight loss Eyes Eyes: Denies blurry vision, change in vision or diplopia ENT ENT ED: Denies ear pain, rhinorrhea or sore throat Cardiovascular Cardiovascular: Denies chest pain, palpitations or racing heartbeat Gastrointestinal Gastrointestinal: Reports abdominal pain; Denies nausea or vomiting Genitourinary Genitourinary ED: Reports dysuria, hematuria and urinary frequency Musculoskeletal Musculoskeletal: Denies arthralgias, back pain or myalgias Integumentary Denies abscess, Abrasions or rash Hematologic/Lymphatic Hematologic/Lymphatic: Reports systems reviewed and no addt'l complaints, except as documented; Denies easy bleeding or easy bruising EXAM Physical Exam Narrative Exam Narrative: Since patient has Coumadin will check PT/INR. UA was sent. UA reveals pyuria and hematuria with rare bacteria. Since patient is urinated 20 times this may represent a false negative urinalysis. Culture was sent. Since she has not had her INR assessed recently we will reassess that. CBC was obtained assess H&H as well as white count. BMP was obtained to assess renal function. Patient states has been no change in her diet. Initial blood pressure is elevated 219/113. Nurse was asked to please repeat this. Const Vital Signs: 06/27/22 15:37 06/27/22 18:16 Temperature 97.6 F L Temperature Source Temporal Pulse Rate 70 Respiratory Rate 16 Blood Pressure 219/113 H 158/94 H Blood Pressure Mean 148 115 Pulse Ox 98 Oxygen Delivery Method Room Air Repeat blood pressure improved markedly without treatment. Positive well nourished and well developed General Appearance ED: well developed and NAD; Negative for cyanotic or diaphoretic HEENT Reports moist mucous membranes HEENT Narrative: Head is atraumatic normocephalic. Ears normal. Eyes PERRL and EOMs intact bilaterally General Eye ED: Negative for pale conjunctiva or scleral icterus Neck no lymphadenopathy, supple and no JVD Resp normal respiratory effort and clear to auscultation bilaterally Cardio regular rate, regular rhythm, S1 normal heart sound, S2 normal heart sound and no murmurs Back/Spine no CVA tenderness Extremity normal to inspection General Extremety ED: Negative for edema or tenderness General Extremity: Negative for edema Neuro oriented x3, CN's II-XII intact bilaterally and no sensory deficits noted Sensorium / Orientation: alert Skin no rashes or lesions noted, no wounds and skin turgor normal MDM MDM Lab Data Attestation: I reviewed the patient's lab results. Lab results narrative: CBC reveals mild anemia with normal indices. PT INR are. Urine reveals hematuria, pyuria and bacteria. Labs: Laboratory Results - last 24 hr 06/27/22 06/27/22 06/27/22 17:25 18:27 18:27 WBC 6.6 RBC 3.96 L Hgb 11.6 L Hct 36.0 L MCV 90.9 MCH 29.3 MCHC 32.2 RDW Std Deviation 46.5 H RDW Coeff of Katie 14.0 Plt Count 115 L MPV 11.0 Immature Gran % (Auto) 0.500 Neut % (Auto) 66.5 Lymph % (Auto) 17.9 L Real % (Auto) 10.4 H Eos % (Auto) 4.1 Baso % (Auto) 0.6 Absolute Neuts (auto) 4.4 Absolute Lymphs (auto) 1.19 Nucleated RBC % 0 PT 15.4 H INR 1.2 Sodium Potassium Chloride Carbon Dioxide Anion Gap BUN Creatinine Estim Creat Clear Calc Est GFR (MDRD) Af Amer Est GFR (MDRD) Non-Af BUN/Creatinine Ratio Glucose Calcium Urine Color Red Urine Clarity Turbid Urine pH 7.0 Ur Specific [place] 1.010 Urine Protein 500 H Urine Glucose (UA) Normal Urine Ketones 5 H Urine Occult Blood 250 H Urine Nitrite Negative Urine Bilirubin Negative Urine Urobilinogen Normal Ur Leukocyte Esterase 100 H Urine RBC > 100 SEEN Urine WBC 25-50 SEEN Ur Squamous Epith Cells 0-5 SEEN Amorphous Sediment 1+ PHOS Urine Bacteria RARE Urine Mucus 0 SEEN 06/27/22 18:27 WBC RBC Hgb Hct MCV MCH MCHC RDW Std Deviation RDW Coeff of Katie Plt Count MPV Immature Gran % (Auto) Neut % (Auto) Lymph % (Auto) Real % (Auto) Eos % (Auto) Baso % (Auto) Absolute Neuts (auto) Absolute Lymphs (auto) Nucleated RBC % PT INR Sodium 138 Potassium 4.0 Chloride 105 Carbon Dioxide 28.0 Anion Gap 5 BUN 23 H Creatinine 1.02 Estim Creat Clear Calc 36.62 Est GFR (MDRD) Af Amer 68 Est GFR (MDRD) Non-Af 56 L BUN/Creatinine Ratio 22.5 H Glucose 80 Calcium 9.6 Urine Color Urine Clarity Urine pH Ur Specific [place] Urine Protein Urine Glucose (UA) Urine Ketones Urine Occult Blood Urine Nitrite Urine Bilirubin Urine Urobilinogen Ur Leukocyte Esterase Urine RBC Urine WBC Ur Squamous Epith Cells Amorphous Sediment Urine Bacteria Urine Mucus Treatment and Re-Evaluation :: Patient was instructed increase her Coumadin. She was placed on Macrobid which would not affect her Coumadin level. Furthermore she is allergic to sulfa. Discharge Plan Triage Chief Complaint: Complaint ED Provider: Trip Peterson Dx/Rx/DC Orders Clinical Impression: Acute hemorrhagic cystitis, retirement current use of anticoagulant, Mitral valve replaced, Aortic valve replaced, Anemia, unspecified Prescriptions: New nitrofurantoin monohyd/m-cryst [nitrofurantoin monohyd/m-cryst] 100 mg capsule 100 mg PO Q12 Qty: 10 0RF No Action triamcinolone acetonide [Kenalog] 40 mg/mL suspension 40 mg INTRAARTIC ONCE Qty: 1 0RF acetaminophen 500 MG tablet 1,000 mg PO TID PRN PRN (Reason: Pain) Qty: 90 0RF Label Comments: Pain as needed cholecalciferol (vitamin D3) 1,000 UNIT tablet 2,000 unit PO DAILY Qty: 30 0RF Label Comments: Supplement warfarin 3 mg tablet 3 mg PO QTUTHSA Qty: 60 1RF Protocol: Dose Management Condition: Monday Dose/Route: 5 mg Instruction: 1 x 5 mg tablet Condition: Monday Dose/Route: 5 mg Instruction: 1 x 5 mg tablet Condition: Monday Dose/Route: 3 mg Instruction: 1 x 3 mg tablet Condition: Monday Dose/Route: 5 mg Instruction: 1 x 5 mg tablet Condition: Dose/Route: 3 mg Instruction: 1 x 3 mg tablet Condition: Monday Dose/Route: 5 mg Instruction: 1 x 5 mg tablet Condition: Monday Dose/Route: 5 mg Instruction: 1 x 5 mg tablet Protocol Text: Adjustment Start Date: Monday05/25/21 INR Value: 1.2 INR Date: 05/13/21 Recheck Date: 06/01/21 diltiazem HCl 180 mg capsule,extended release 24hr 180 mg PO DAILY Qty: 90 0RF warfarin 5 mg tablet 5 mg PO .COMPLEX Qty: 90 1RF Protocol: Dose Management Condition: Monday Dose/Route: 5 mg Instruction: 1 x 5 mg tablet Condition: Monday Dose/Route: 5 mg Instruction: 1 x 5 mg tablet Condition: Monday Dose/Route: 3 mg Instruction: 1 x 3 mg tablet Condition: Monday Dose/Route: 5 mg Instruction: 1 x 5 mg tablet Condition: Dose/Route: 3 mg Instruction: 1 x 3 mg tablet Condition: Monday Dose/Route: 5 mg Instruction: 1 x 5 mg tablet Condition: Monday Dose/Route: 5 mg Instruction: 1 x 5 mg tablet Protocol Text: Adjustment Start Date: Monday05/25/21 INR Value: 1.2 INR Date: 05/13/21 Recheck Date: 06/01/21 Rx Instructions: 5 mg orally mon,mon, mon ,mon; citalopram [Celexa] 40 mg tablet 40 mg PO DAILY Qty: 90 1RF Primary Care Provider: Leon Mandel Referrals: Leon Mandel, DO [Primary Care Provider] - 3-5 Days Activity Restrictions/Additional Instructions: 1. Call Dr. Mandel's office for repeat PT/INR in 4 to 5 days 2. Take antibiotics until gone 3. Return if you have temperature greater than 100.5, shaking chills, nausea and vomiting unable to drink or eat anything 4. Take your 5 mg tablets of warfarin daily Disposition Disposition: Home, Self Care
[2022-06-27 18:16] VITALS: BP 158/94
[2022-06-27 18:43] LABS: Absolute Lymphocyte Count 1.19 X10^3/uL (0.83-4.51); Absolute Neutrophil Count 4.4 X10^3/uL (2.0-7.7); Basophil# 0.04 X10^3/uL; Basophil% 0.6 % (0-1); Eosinophil# 0.27 X10^3/uL; Eosinophils% 4.1 % (0-5); Hemoglobin 11.6 g/dL (12.0-15.0); Lymphocyte # 1.19 X10^3/ul (0.83-4.51); Lymphocyte % 17.9 % (19-41); Mean Corp Hgb Conc 32.2 g/dL (32-36); Mean Corpuscular Hgb 29.3 pg (27.0-32.0); Mean Corpuscular Volume 90.9 fL (81-99); Monocyte# 0.69 X10^3/uL; Monocyte% 10.4 % (0-10); NRBC Flagged by Analyzer 0 % (0-5); Neutrophil # 4.42 X10^3/uL (2.7-7.7); Neutrophil % 66.5 % (47-70); Platelet Count 115 K/mm3 (150-450); RBC Distribution Width SD 46.5 fl (35.1-43.9); Red Blood Count 3.96 M/mm3 (4.2-5.4); White Blood Count 6.6 K/mm3 (4.4-11.0)
[2022-06-27 18:49] LABS: International Normalized Ratio 1.2; Prothrombin Time (Protime)PT. 15.4 SECONDS (11.7-14.9)
[2022-06-27 18:50] LABS: Anion Gap 5 (5-15); BUN 23 mg/dL (7-18); BUN/Creat Ratio 22.5 RATIO (10-20); Calcium,Total 9.6 mg/dL (8.5-10.1); Chloride 105 mmol/L (98-107); Creatinine, Serum 1.02 mg/dL (0.55-1.02); EST Glomerular Filtration Rate 56 mL/min (>60); Est Glom Filt Rate - Afr Amer 68 mL/min (>60); Estimated Creatinine Clearance 36.62 ml/min; Glucose 80 mg/dL (74-106); Sodium Level 138 mmol/L (136-145)
[2022-06-27] MEDS: Nitrofurantoin Macrocrystals 100 MG Capsule PO (20:17)
== END 2022-06-27 20:32 | disposition home or self-care (01) ==
PROVIDERS: Emergency Provider Emergency Medicine; PCP Family Medicine; Visit Provider Emergency Medicine
DX: N30.00 Acute cystitis without hematuria (principal); C41.4 Malignant neoplasm of pelvic bones, sacrum and coccyx; D64.9 Anemia, unspecified; Z79.01 Long term (current) use of anticoagulants; R31.0 Gross hematuria; R30.0 Dysuria; Z95.2 Presence of prosthetic heart valve; R35.0 Frequency of micturition; E55.9 Vitamin D deficiency, unspecified
CPT/HCPCS: 36415; 80048; 81001; 85025; 85610; 87077; 87086; 87088; 87186; 99283; A4216

== ENCOUNTER → 2022-07-13 | Outpatient (CLI) | payer MEDICARE, SELFPAY ==
[2022-07-13 11:46] LABS: Bacteria 0 SEEN /hpf (None Seen); Mucous, Urine 0 SEEN /hpf (<or=2+); Squamous Epithelial Cells - UA 0 SEEN /hpf (5-10); White Blood Cells 0 SEEN /hpf (0-5)
[2022-07-13 12:14] LABS: Color, Urine Yellow (Yellow); Glucose, Dipstick Normal (Normal); Ketone-Dipstick Negative (Negative); Leukocyte Esterase-Dipstick Negative /ul (Negative); Nitrite-Dipstick Negative (Negative); Occult Blood-Urine 250 /ul (Negative); Protein-Dipstick 100 mg/dl (Negative); Specific Gravity, Urine 1.005 (1.002-1.030); Urine Bilirubin Dipstick Negative (Negative); Urine Clarity Sl. Cloudy (Clear); Urine Urobilinogen Normal (Normal)
[2022-07-13 12:21] LABS: Red Blood Cells-Urine 25-50 SEEN /hpf (0-5)
== END | disposition home or self-care (01) ==
LOC: LABSPEC 11:45
PROVIDERS: PCP Family Medicine; Referring Provider Nurse Practitioner Family; Visit Provider Nurse Practitioner Family
DX: R53.1 Weakness (principal); N30.00 Acute cystitis without hematuria
CPT/HCPCS: 81001; 87086

== ENCOUNTER 2022-07-19 15:34 | Outpatient (RCR) | payer MEDICARE, SELFPAY ==
[2022-05-21 00:14] VITALS: BMI 20.5
[2022-06-27 16:43] LABS: International Normalized Ratio 1.2; Prothrombin Time (Protime)PT. 14.7 SECONDS (11.7-14.9)
[2022-07-11 15:50] LABS: International Normalized Ratio 1.2; Prothrombin Time (Protime)PT. 15.3 SECONDS (11.7-14.9)
[2022-07-19 16:58] LABS: Absolute Lymphocyte Count 1.25 X10^3/uL (0.83-4.51); Basophil# 0.03 X10^3/uL; Basophil% 0.6 % (0-1); Eosinophil# 0.11 X10^3/uL; Eosinophils% 2.2 % (0-5); Hematocrit 36.5 % (37-47); Hemoglobin 11.2 g/dL (12.0-15.0); Lymphocyte # 1.25 X10^3/ul (0.83-4.51); Lymphocyte % 24.9 % (19-41); Mean Corp Hgb Conc 30.7 g/dL (32-36); Mean Corpuscular Hgb 28.8 pg (27.0-32.0); Mean Corpuscular Volume 93.8 fL (81-99); Mean Platelet Vol. 11.2 fl (6.2-12.0); Monocyte# 0.62 X10^3/uL; Monocyte% 12.4 % (0-10); NRBC Flagged by Analyzer 0 % (0-5); Neutrophil # 2.99 X10^3/uL (2.7-7.7); Neutrophil % 59.5 % (47-70); Platelet Count 143 K/mm3 (150-450); RBC Distribution Width SD 48.3 fl (35.1-43.9); Red Blood Count 3.89 M/mm3 (4.2-5.4)
[2022-07-19 17:05] LABS: International Normalized Ratio 1.3
[2022-07-19 17:39] LABS: Anion Gap 7 (5-15); BUN 20 mg/dL (7-18); BUN/Creat Ratio 20.3 RATIO (10-20); Calcium,Total 9.4 mg/dL (8.5-10.1); Chloride 107 mmol/L (98-107); Creatinine, Serum 0.98 mg/dL (0.55-1.02); EST Glomerular Filtration Rate 58 mL/min (>60); Est Glom Filt Rate - Afr Amer 70 mL/min (>60); Glucose 78 mg/dL (74-106); Sodium Level 139 mmol/L (136-145)
[2022-07-19 19:09] LABS: Vitamin B12 268 pg/mL (211-911); Vitamin D,25 Hydroxy 71.8 ng/mL
== END 2022-07-20 23:59 ==
LOC: BIMLAB 15:34
PROVIDERS: Nurse Practitioner Family; PCP Family Medicine; Referring Provider Family Medicine; Visit Provider Family Medicine
DX: Z79.01 Long term (current) use of anticoagulants (principal); Z95.2 Presence of prosthetic heart valve; I48.20 Chronic atrial fibrillation, unspecified; C41.9 Malignant neoplasm of bone and articular cartilage, unspecified; E56.9 Vitamin deficiency, unspecified; I10 Essential (primary) hypertension; N30.00 Acute cystitis without hematuria; E55.9 Vitamin D deficiency, unspecified
CPT/HCPCS: 36415; 80048; 82306; 82607; 84443; 85025; 85610

== ENCOUNTER 2022-08-18 15:04 | Outpatient (RCR) | payer MEDICARE, SELFPAY ==
[2022-07-21 00:07] VITALS: BMI 20.5
[2022-08-18 17:00] LABS: International Normalized Ratio 2.4; Prothrombin Time (Protime)PT. 26.7 SECONDS (11.7-14.9)
[2022-08-18 17:11] LABS: Anion Gap 9 (5-15); BUN 31 mg/dL (7-18); BUN/Creat Ratio 16.1 RATIO (10-20); Calcium,Total 8.9 mg/dL (8.5-10.1); Chloride 106 mmol/L (98-107); Creatinine, Serum 1.93 mg/dL (0.55-1.02); EST Glomerular Filtration Rate 27 mL/min (>60); Est Glom Filt Rate - Afr Amer 32 mL/min (>60); Glucose 104 mg/dL (74-106); Potassium 3.3 mmol/L (3.5-5.1); Sodium Level 139 mmol/L (136-145)
== END 2022-08-19 23:59 ==
LOC: BIMLAB 15:04
PROVIDERS: PCP Family Medicine; Referring Provider Family Medicine; Visit Provider Family Medicine
DX: Z79.01 Long term (current) use of anticoagulants (principal)
CPT/HCPCS: 36415; 80048; 85610

== ENCOUNTER → 2022-08-24 | Outpatient (CLI) | payer MEDICARE, SELFPAY ==
[2022-08-24 14:01] LABS: Anion Gap 7 (5-15); BUN 24 mg/dL (7-18); BUN/Creat Ratio 14.5 RATIO (10-20); Calcium,Total 8.9 mg/dL (8.5-10.1); Chloride 110 mmol/L (98-107); Creatinine, Serum 1.65 mg/dL (0.55-1.02); EST Glomerular Filtration Rate 32 mL/min (>60); Est Glom Filt Rate - Afr Amer 39 mL/min (>60); Glucose 88 mg/dL (74-106); Potassium 4.2 mmol/L (3.5-5.1); Sodium Level 139 mmol/L (136-145)
== END | disposition home or self-care (01) ==
PROVIDERS: PCP Family Medicine; Visit Provider Family Medicine
DX: S37.009A Unspecified injury of unspecified kidney, initial encounter (principal); X58.XXXA Exposure to other specified factors, initial encounter
CPT/HCPCS: 36415; 80048

== ENCOUNTER 2022-09-16 15:22 | Outpatient (RCR) | payer MEDICARE, SELFPAY ==
[2022-08-20 00:25] VITALS: BMI 20.5
[2022-09-16 16:42] LABS: International Normalized Ratio 1.6; Prothrombin Time (Protime)PT. 19.5 SECONDS (11.7-14.9)
== END 2022-09-19 23:59 ==
LOC: BIMLAB 15:22
PROVIDERS: PCP Family Medicine; Referring Provider Family Medicine; Visit Provider Family Medicine
DX: Z79.01 Long term (current) use of anticoagulants (principal)
CPT/HCPCS: 36415; 85610

== ENCOUNTER 2022-10-17 08:35 | Outpatient (RCR) | payer MEDICARE, SELFPAY ==
[2022-09-20 00:28] VITALS: BMI 20.5
[2022-10-17 08:38] LABS: White Blood Cells 0 SEEN /hpf (0-5)
[2022-10-17 12:10] LABS: Absolute Lymphocyte Count 0.96 X10^3/uL (0.83-4.51); Absolute Neutrophil Count 2.3 X10^3/uL (2.0-7.7); Basophil# 0.02 X10^3/uL; Basophil% 0.5 % (0-1); Eosinophil# 0.05 X10^3/uL; Eosinophils% 1.3 % (0-5); Hematocrit 31.4 % (37-47); Hemoglobin 9.5 g/dL (12.0-15.0); Lymphocyte # 0.96 X10^3/ul (0.83-4.51); Lymphocyte % 24.1 % (19-41); Mean Corp Hgb Conc 30.3 g/dL (32-36); Mean Corpuscular Volume 95.7 fL (81-99); Monocyte% 15.1 % (0-10); NRBC Flagged by Analyzer 0 % (0-5); Neutrophil # 2.32 X10^3/uL (2.7-7.7); Neutrophil % 58.2 % (47-70); Platelet Count 114 K/mm3 (150-450); RBC Distribution Width SD 52.1 fl (35.1-43.9); Red Blood Count 3.28 M/mm3 (4.2-5.4)
[2022-10-17 12:11] LABS: Color, Urine Yellow (Yellow); Glucose, Dipstick Normal (Normal); Ketone-Dipstick Negative (Negative); Leukocyte Esterase-Dipstick Negative /ul (Negative); Nitrite-Dipstick Negative (Negative); Occult Blood-Urine 250 /ul (Negative); Protein-Dipstick 100 mg/dl (Negative); Urine Bilirubin Dipstick Negative (Negative); Urine Clarity Sl. Cloudy (Clear); Urine Urobilinogen Normal (Normal)
[2022-10-17 12:19] LABS: Bacteria RARE /hpf (None Seen); Mucous, Urine RARE /hpf (<or=2+); Red Blood Cells-Urine 25-50 SEEN /hpf (0-5); Squamous Epithelial Cells - UA 0-5 SEEN /hpf (5-10)
[2022-10-17 12:23] LABS: International Normalized Ratio 1.8; Prothrombin Time (Protime)PT. 20.9 SECONDS (11.7-14.9)
[2022-10-17 12:36] LABS: ALB/GLOB Ratio 0.9 RATIO (0.9-2.4); AST(SGOT) 31 U/L (15-37); Alanine Aminotransfer ALT/SGPT 19 U/L (13-56); Albumin, Serum 3.3 g/dL (3.2-5.0); Alkaline Phosphatase 181 U/L (45-117); Anion Gap 6 (5-15); BUN 23 mg/dL (7-18); BUN/Creat Ratio 16.2 RATIO (10-20); Calcium,Total 9.4 mg/dL (8.5-10.1); Chloride 107 mmol/L (98-107); Creatinine, Serum 1.42 mg/dL (0.55-1.02); EST Glomerular Filtration Rate 38 mL/min (>60); Est Glom Filt Rate - Afr Amer 46 mL/min (>60); Globulin 3.8 g/dL (2.2-4.2); Glucose 93 mg/dL (74-106); Potassium 3.8 mmol/L (3.5-5.1); Protein, Total 7.1 g/dL (6.4-8.2); Sodium Level 137 mmol/L (136-145)
== END 2022-10-20 23:59 ==
LOC: BIMLAB 08:35
PROVIDERS: Internal Medicine; PCP Family Medicine; Referring Provider Family Medicine; Visit Provider Family Medicine
DX: Z79.01 Long term (current) use of anticoagulants (principal); N30.01 Acute cystitis with hematuria; R31.0 Gross hematuria
CPT/HCPCS: 36415; 80053; 81001; 85025; 85610; 87086

== ENCOUNTER 2022-11-09 18:28 | Inpatient (IN) | payer MEDICARE, SELFPAY ==
[2022-11-09] VITALS (7 sets, daily range): BP systolic 124–143; BP diastolic 62–73; PULSE 60–74; RESP 16–18; TEMP 36.2–37.1; O2SAT 96–100; BMI 19.8; BMI 21.0
[2022-11-09 19:42] LABS: Absolute Lymphocyte Count 0.96 X10^3/uL (0.83-4.51); Absolute Neutrophil Count 2.7 X10^3/uL (2.0-7.7); Basophil# 0.01 X10^3/uL; Basophil% 0.2 % (0-1); Eosinophil# 0.01 X10^3/uL; Eosinophils% 0.2 % (0-5); Hematocrit 18.5 % (37-47); Lymphocyte # 0.96 X10^3/ul (0.83-4.51); Lymphocyte % 22.4 % (19-41); Mean Corp Hgb Conc 29.7 g/dL (32-36); Mean Corpuscular Hgb 28.2 pg (27.0-32.0); Mean Corpuscular Volume 94.9 fL (81-99); Mean Platelet Vol. 10.1 fl (6.2-12.0); Monocyte# 0.55 X10^3/uL; Monocyte% 12.8 % (0-10); NRBC Flagged by Analyzer 0 % (0-5); Neutrophil # 2.71 X10^3/uL (2.7-7.7); Neutrophil % 63.2 % (47-70); POSITIVE COUNT YES; Platelet Count 138 K/mm3 (150-450); RBC Distribution Width CV 15.4 % (11.6-14.6); RBC Distribution Width SD 50.7 fl (35.1-43.9); Red Blood Count 1.95 M/mm3 (4.2-5.4); White Blood Count 4.3 K/mm3 (4.4-11.0)
[2022-11-09 19:43] LABS: Hemoglobin 5.5 g/dL (12.0-15.0)
--- NOTE | 2022-11-09 19:51 | EDS_ITS ---
HPI HPI - GI History of Present Illness Chief Complaint: Weakness Detail of Chief Complaint: Generalized weakness. Black stool on Coumadin. Informant: patient Abdominal Pain/Flank Pain Onset: Days Context: Gradual Onset Timing: Continuous Nausea/Vomiting/Emesis GI Symptom: Negative for Nausea or Vomiting Diarrhea/Melena/Hematochezia GI Symptom: Positive for Melena; Negative for Diarrhea or Hematochezia Onset: Days Associated Symptoms Associated Symptoms: Negative for Dysuria, Hematuria or Urgency Narrative Narrative: 76-year-old female history of A-fib with 2 mechanical valves on Coumadin. And iron are done earlier today was 5.2. Patient has been complaining of weakness for weeks to months. And has noticed black stool recently. She denies any hematemesis. No history of a prior GI bleed. Was seen today in the office by her primary care physician or center in the emergency department. Prior similar symptoms: No Recent Illness/Hospitalization: No [facility] PF[facility] Medical History Acute cystitis Cancer of pelvic bone Hematuria HTN (hypertension) Vitamin deficiency Home Medications acetaminophen 500 mg tablet 1,000 mg (2 x 500 mg) PO TID PRN PRN Pain #90 tabs 06/15/15 [Rx Last Taken Unknown] cholecalciferol (vitamin D3) 25 mcg (1,000 unit) tablet 2,000 unit PO DAILY #30 tabs 06/15/15 [Rx Last Taken 06/19/15 08:00] diltiazem HCl 180 mg capsule,extended release 24 hr 180 mg PO DAILY #90 caps 12/16/21 [Rx Last Taken Unknown] warfarin 3 mg tablet See Rx Instructions .Route .COMPLEX #120 tabs 08/22/22 [Rx Last Taken Unknown] warfarin 5 mg tablet See Rx Instructions .Route .COMPLEX #36 tabs 08/22/22 [Rx Last Taken Unknown] Allergy/AdvReac Type Severity Reaction Status Date / Time Sulfa (Sulfonamide Allergy Rash Verified 11/09/22 18:29 Antibiotics) Family History Father Lung cancer Mother Heart disease Surgical History History of artificial heart valve History of hysterectomy History of total right hip replacement Social History Smoking Status: Unknown if ever smoked alcohol intake: current alcohol intake frequency: holidays/special occasions only substance use type: does not use what type of physical activity do you participate in: none ROS ROS ED ROS Narrative Generalized weakness. Black stool Review of Systems ROS Unobtainable: Denies due to encephalopathy Constitutional Constitutional ED: Denies chills or fever(s) ENT ENT ED: Denies ear pain Cardiovascular Cardiovascular: Denies chest pain Respiratory/Chest Respiratory/Chest: Reports dyspnea and dyspnea on exertion; Denies cough Gastrointestinal Gastrointestinal: Reports melena; Denies abdominal pain, constipation, diarrhea, nausea or vomiting Genitourinary Genitourinary ED: Denies dysuria or hematuria Musculoskeletal Musculoskeletal: Denies arthralgias Integumentary Denies abscess Neurologic Neurologic: Denies headache(s) Psychiatric Psychiatric: Denies anxiety Endocrine Endocrinology: Denies polydipsia Hematologic/Lymphatic Hematologic/Lymphatic: Denies easy bleeding or easy bruising Allergic/Immunologic Allergic/Immunologic ED: Denies mouth swelling EXAM Physical Exam Narrative Exam Narrative: 76-year-old female vital signs are stable afebrile. Initial blood pressure 143/73. She does look pale. She does not look septic or toxic. H EENT exam unremarkable. Neck nontender. Lungs clear to auscultation. Heart regular r hythm for her 6 systolic ejection murmur. Abdomen soft nontender. Rectal exam with her daughter present in the room there is some very small amount of stool it does look dark like a possible upper GI bleed. No gross blood. Moving all 4 extremities. Nontender no edema. Neurologically she is awake and alert with no focal motor deficits. Const Vital Signs: 11/09/22 18:29 11/09/22 19:19 Temperature 97.2 F L Temperature Source Temporal Pulse Rate 74 Respiratory Rate 18 Respiratory Effort Normal Respiratory Pattern Normal Blood Pressure 143/73 H Blood Pressure Mean 96 Pulse Ox 100 Positive well nourished and well developed; Negative for obese, cachectic, contractures or unkempt General Appearance ED: well developed, NAD and pallor; Negative for unkempt, cachectic or contractures Nutritional Appearance: Negative for cachectic or obese HEENT Reports moist mucous membranes normocephalic and atraumatic; Negative for trauma or tenderness Eyes PERRL and EOMs intact bilaterally General Eye ED: Yes pale conjunctiva; Negative for scleral icterus Neck no lymphadenopathy, supple and no JVD General: Negative for tenderness Carotids: Negative for other Lymph Lymphatic: Negative for other Resp normal respiratory effort and clear to auscultation bilaterally Effort and Inspection: Negative for respiratory distress Auscultation: Negative for rales, rhonchi or wheezes Cardio regular rate, regular rhythm, S1 normal heart sound and S2 normal heart sound; Negative for no murmurs Rate: Negative for bradycardia or tachycardic GI non-tender, non-distended and no masses Inspection: Negative for abdominal distention Auscultation: normoactive bowel sounds Palpation: soft; Negative for tender or guarding Back/Spine no CVA tenderness General Back: Negative for CVA tenderness Cervical Spine: Negative for cervical spine tenderness Thoracic Spine / Upper Back: Negative for thoracic spinal tenderness Lumbar Spine / Lower Back: Negative for lumbar spinal tenderness Coccyx: Negative for other Extremity full ROM General Extremety ED: Negative for edema or tenderness General Extremity: Negative for edema Neuro CN's II-XII intact bilaterally and moves all extremities Sensorium / Orientation: alert, oriented to person, oriented to place and oriented to time; Negative for orientation impaired, confused, lethargic or stuporous Motor Exam: strength 5/5 throughout Psych mental status grossly normal and thought process normal Appearance: Negative for unkempt Attitude: No agitated Mood & Affect: Negative for depressed, anxious or tearful Skin no wounds General Skin Exam: pallor; Negative for jaundice Lesions: no lesions Rashes: no rashes Trauma: Negative for abrasion Nails: Negative for discolored MDM MDM MDM Narrative Medical decision making narrative: 76-year-old female with generalized weakness exertional fatigue concern for possible upper GI bleed with acute on chronic anemia. Labs are being obtained. She also has an elevated INR but want to be careful correcting that due to her mechanical valves. Hemoglobin was 5.5. She is been typed and crossed for 4 units of blood. She will be transfused 2. I already spoke to the hospitalist. He will admit her. He will deal with the INR. I also spoke to GI Dr. Pettit. Most likely the patient will need endoscopy in the morning. She has been written for IV Protonix. History & Record Review Discussion w/independent historian: Patient and Family Additional record(s) reviewed:: Prior inpatient record, Prior outpatient record, Prior ED visit and Prior labs Lab Data Attestation: I reviewed the patient's lab results. Lab results narrative: CBC shows white count 4.3. H&H of 5.5 and 18.5. Previously was 925. Acute on chronic anemia. Platelets of 138. INR earlier today was 5.2. Labs: Laboratory Results - last 24 hr 11/09/22 19:30 WBC 4.3 L RBC 1.95 L Hgb 5.5 L* Hct 18.5 L MCV 94.9 MCH 28.2 MCHC 29.7 L RDW Std Deviation 50.7 H RDW Coeff of Katie 15.4 H Plt Count 138 L MPV 10.1 Immature Gran % (Auto) 1.200 H Neut % (Auto) 63.2 Lymph % (Auto) 22.4 [place] % (Auto) 12.8 H Eos % (Auto) 0.2 Baso % (Auto) 0.2 Absolute Neuts (auto) 2.7 Absolute Lymphs (auto) 0.96 Nucleated RBC % 0 Diff Path Review May foll Critical Care Time Critical Care Time: Yes Critical care time (excluding procedures): 30-74 minutes, Including time spent:, Discussing w/Patient &/or Family/Nutrition Services Aide, Discussing w/Consultants, Arranging Admission or Transfer, Performing Direct Patient Care at Bedside and - (33 minutes) Discharge Plan Triage Chief Complaint: Weakness ED Provider: Harsha Perrin Dx/Rx/DC Orders Clinical Impression: History of mechanical aortic valve replacement, Anemia, Subtherapeutic anticoagulation, History of atrial fibrillation, Acute upper gastrointestinal bleeding Prescriptions: No Action acetaminophen 500 MG tablet 1,000 mg PO TID PRN PRN (Reason: Pain) Qty: 90 0RF Patient Comments: Pain as needed cholecalciferol (vitamin D3) 1,000 UNIT tablet 2,000 unit PO DAILY Qty: 30 0RF Patient Comments: Supplement diltiazem HCl 180 mg capsule,extended release 24hr 180 mg PO DAILY Qty: 90 0RF warfarin 3 mg tablet See Rx Instructions .ROUTE .COMPLEX Qty: 120 1RF Hold Instructions: Ordered Dose Instruction: TAKE 2 TABLETS BY MOUTH EVERY DAY Rx Instructions: TAKE 2 TABLETS BY MOUTH EVERY DAY warfarin 5 mg tablet See Rx Instructions .ROUTE .COMPLEX Qty: 36 2RF Hold Instructions: Ordered Dose Instruction: TAKE 1 TABLET BY MOUTH ON MONDAY, MONDAY, MONDAY, AND MONDAY Rx Instructions: TAKE 1 TABLET BY MOUTH ON MONDAY, MONDAY, MONDAY, AND MONDAY Primary Care Provider: Leon Mandel Referrals: Leon Mandel, [Primary Care Provider] - Disposition Disposition: [facility]
--- NOTE | 2022-11-09 19:53 | PCM.HP.STD ---
HPI - General General Date of Admission: 11/09/22 Date of Service: 11/09/22 Chief Complaint: Acute blood loss anemia, GI bleed HPI Narrative NIKOLE CHU, is a 76 F with history of aortic and mitral valve replacements on Coumadin, chronic atrial fibrillation, hypertension and history of cancer of the pelvic bone who presented to [facility] ED on 11/09/2022 with worsening weakness and dark stools. Patient seen at bedside in the ED, daughter present. Patient sitting comfortably in bed, conversing normally, in no acute distress. Patient states that she has felt weaker than her normal over the past several weeks to a few months. She has noticed intermittent dark stools at times. Patient has been on Coumadin for about 30 years now. She has never had a GI bleed before. Her Coumadin is managed by her PCP and she notes that her dosing is changed somewhat frequently, but this is not out of the ordinary for her. Patient otherwise denies any hematemesis or acid reflux. She denies any chest pain or shortness of breath. Denies any abdominal pain. Denies any fevers or chills. No other acute concerns. Vitals in ED unremarkable. Labs notable for hemoglobin 5.5, MCV 94, WBC count 4.3, platelets 138, creatinine 2.38, BUN 54, potassium 2.9. UA showed 500 protein, 250 occult blood, 50-100 RBCs, otherwise benign. [facility] Medical History (Updated 11/09/22 @ 21:43 by Adelina Gibbs) Acute cystitis Atrial fibrillation Cancer of pelvic bone Hematuria HTN (hypertension) Vitamin deficiency Home Medications acetaminophen 500 mg tablet 1,000 mg (2 x 500 mg) PO TID PRN PRN Pain #90 tabs 06/15/15 [Rx Last Taken Unknown] cholecalciferol (vitamin D3) 25 mcg (1,000 unit) tablet 2,000 unit PO DAILY #30 tabs 06/15/15 [Rx Last Taken 06/19/15 08:00] diltiazem HCl 180 mg capsule,extended release 24 hr 180 mg PO DAILY #90 caps 12/16/21 [Rx Last Taken Unknown] warfarin 3 mg tablet See Rx Instructions .Route .COMPLEX #120 tabs 08/22/22 [Rx Last Taken Unknown] warfarin 5 mg tablet See Rx Instructions .Route .COMPLEX #36 tabs 08/22/22 [Rx Last Taken Unknown] Allergy/AdvReac Type Severity Reaction Status Date / Time Sulfa (Sulfonamide Allergy Rash Verified 11/09/22 18:29 Antibiotics) Family History Father Lung cancer Mother Heart disease Surgical History History of artificial heart valve History of hysterectomy History of total right hip replacement Social History Smoking Status: Unknown if ever smoked alcohol intake: current alcohol intake frequency: holidays/special occasions only substance use type: does not use what type of physical activity do you participate in: none ROS Constitutional Constitutional: Reports fatigue and weakness; Denies chills or fever(s) Eyes Eyes: Denies change in vision Cardiovascular Cardiovascular: Denies chest pain, lightheadedness or palpitations Respiratory/Chest Respiratory/Chest: Reports shortness of breath with exertion; Denies cough or shortness of breath at rest Gastrointestinal Gastrointestinal: Reports melena; Denies abdominal pain, constipation, diarrhea, nausea or vomiting Genitourinary Genitourinary: Denies dysuria or hematuria Vital Signs Vital Signs Vital Signs: 11/09/22 18:29 11/09/22 19:19 Temperature 97.2 F L Temperature Source Temporal Pulse Rate 74 Respiratory Rate 18 Respiratory Effort Normal Respiratory Pattern Normal Blood Pressure 143/73 H Blood Pressure Mean 96 Pulse Ox 100 Weight Weight: 49.26 kg Body Mass Index (BMI) 19.8 Physical Exam Const alert, oriented x3, no apparent distress, average body habitus, healthy appearing and well nourished Constitutional Narrative: Pleasant elderly female, sitting comfortably in bed, conversing normally, no acute distress. General Appearance: cooperative, comfortable, well kempt and well developed HEENT normocephalic, head/scalp atraumatic, hearing grossly normal bilaterally, nasal mucous membranes and turbinates normal and moist oral mucous membranes Eyes PERRL, EOMs intact bilaterally and conjunctivae normal Neck full ROM, no lymphadenopathy and supple Lymph Lymphatic: no lymphadenopathy noted Chest inspection of chest normal Resp normal respiratory effort, normal air movement, no use of accessory muscles and clear to auscultation bilaterally Cardio regular rate, regular rhythm, no murmurs and peripheral pulses 2+ throughout GI normal to inspection, nondistended, normoactive bowel sounds, soft to palpation, non-tender and non-distended Back/Spine normal ROM Extremity normal to inspection, full ROM and no pedal edema Skin no rashes or lesions noted Psych mental status grossly normal Results Lab / Micro Data 11/09/22 19:30 11/09/22 19:30 Labs: Laboratory Results - last 24 hr 11/09/22 19:30: WBC 4.3 L, RBC 1.95 L, Hgb 5.5 L*, Hct 18.5 L, MCV 94.9, MCH 28.2, MCHC 29.7 L, RDW Std Deviation 50.7 H, RDW Coeff of Katie 15.4 H, Plt Count 138 L, MPV 10.1, Immature Gran % (Auto) 1.200 H, Neut % (Auto) 63.2, Lymph % (Auto) 22.4, [place] % (Auto) 12.8 H, Eos % (Auto) 0.2, Baso % (Auto) 0.2, Absolute Neuts (auto) 2.7, Absolute Lymphs (auto) 0.96, Nucleated RBC % 0, Diff Path Review May foll Assessment & Plan Assessment/Plan (1) GI bleed: PLAN: Plan Patient is a 76-year-old female with history of aortic and mitral valve replacements on Coumadin, chronic atrial fibrillation, hypertension and history of cancer of the pelvic bone who presented to [facility] ED on 11/09/2022 with worsening weakness and dark stools. 1. Acute blood loss anemia suspected secondary to GI bleed Suspect a slow upper GI bleed over several weeks to months in setting of anticoagulation with Coumadin as noted below. INR 5.2 on admit. Hemoglobin 5.5 on admit, MCV 94. In ED, typed and cross for 4 units and initiated transfusion of 2 units of packed red blood cells. ? Admit to inpatient bed in PCU. ED spoke with on-call gastroenterology, planning for EGD tomorrow. N.p.o. at midnight. Formal GI consult placed. Started IV PPI twice daily. We will recheck CBC tomorrow morning after patient has received 2 units. Hold home Coumadin for now, check INR daily. We will hold on giving any doses of vitamin K at this time. Iron studies, B12 and folate ordered. 2. SANDY Very likely prerenal secondary to hypovolemia in setting of GI bleed as noted above. Creatinine 2.38 on admit, BUN 54. Unclear if patient has some degree of CKD; baseline creatinine in 06/2022 was around 1.0, but patient has had multiple creatinine values of 1.4-1.9 since then. UA on admit showed 500 protein. ? Monitor BMP daily. Monitor urine output. If patient does not have significant improvement in creatinine after receiving 2 units of packed red blood cells, can consider further work-up with urine studies to calculate FeNa and/or renal/bladder imaging. 3. 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 Coumadin dosing managed by her PCP. Does report consistent changes in her medication regimen over the past several months, but this is not abnormal for her. ?INR 5.2 on admit as noted above. We will hold dose of Coumadin on 11/10. Monitor daily INR, restart Coumadin as able. 4. Hypokalemia ? Unclear etiology. Potassium 2.9 on admit. Replete as needed with goal of potassium 3.5 or greater. Chronic medical conditions: ? Chronic atrial fibrillation: Continue home diltiazem. ? Hypertension: Continue home diltiazem as above. DVT prophylaxis: SCDs CODE STATUS: Full code, unverified Expected disposition: Home, TBD Total clinical time spent by myself addressing the patient's medical issues, reviewing all the data, and collaborating with patient's care team: 55 minutes. Charges/Coding Visit Charges Inpatient E&M: 12809 Init Hosp L2
[2022-11-09 19:54] LABS: Anion Gap 7 (5-15); BUN 54 mg/dL (7-18); BUN/Creat Ratio 22.7 RATIO (10-20); Calcium,Total 7.8 mg/dL (8.5-10.1); Chloride 106 mmol/L (98-107); Creatinine, Serum 2.38 mg/dL (0.55-1.02); EST Glomerular Filtration Rate 21 mL/min (>60); Est Glom Filt Rate - Afr Amer 25 mL/min (>60); Estimated Creatinine Clearance 15.64 ml/min; Glucose 146 mg/dL (74-106); Potassium 2.9 mmol/L (3.5-5.1); Sodium Level 136 mmol/L (136-145)
[2022-11-09] MEDS: Pantoprazole Sodium 40 MG in 0.9% Normal Saline (100mL MB+) 100 ML 330 MG IV (20:04)
--- NOTE | 2022-11-09 23:00 | EX.PCM.CON.G ---
HPI Consult Data Date of Consult: 11/09/22 HPI Narrative Reason for Consultation: GI bleed HPI Narrative: NIKOLE CHU, is a 76 F who presents with weakness and fatigue and intermittent melanotic stools. She has a history of A-fib with 2 mechanical valves on Coumadin. And iron are done earlier today was 5.2. Patient has been complaining of weakness for weeks to months. And has noticed black stool recently. She denies any hematemesis. No history of a prior GI bleed. She was seen today in the office by her primary care physician or center in the emergency department. Patient states that she has felt weaker than her normal over the past several weeks to a few months. She has noticed intermittent dark stools at times. Patient has been on Coumadin for about 30 years now. She has never had a GI bleed before. Her Coumadin is managed by her PCP and she notes that her dosing is changed somewhat frequently, but this is not out of the ordinary for her. Patient otherwise denies any hematemesis or acid reflux. She denies any chest pain or shortness of breath. Denies any abdominal pain. Denies any fevers or chills. No other acute concerns. Vitals in ED unremarkable. Labs notable for hemoglobin 5.5, MCV 94, WBC count 4.3, platelets 138, creatinine 2.38, BUN 54, potassium 2.9. UA showed 500 protein, 250 occult blood, 50-100 RBCs, otherwise benign. [facility] Medical History (Updated 11/10/22 @ 13:[address] Graff Friend, DO) Acute cystitis Atrial fibrillation Cancer of pelvic bone Hematuria HTN (hypertension) Vitamin deficiency Home Medications acetaminophen 500 mg tablet 1,000 mg (2 x 500 mg) PO TID PRN PRN Pain #90 tabs 06/15/15 [Rx Last Taken Unknown] cholecalciferol (vitamin D3) 25 mcg (1,000 unit) tablet 2,000 unit PO DAILY #30 tabs 06/15/15 [Rx Last Taken 06/19/15 08:00] diltiazem HCl 180 mg capsule,extended release 24 hr 180 mg PO DAILY #90 caps 12/16/21 [Rx Last Taken Unknown] warfarin 3 mg tablet See Rx Instructions .Route .COMPLEX #120 tabs 08/22/22 [Rx Last Taken Unknown] warfarin 5 mg tablet See Rx Instructions .Route .COMPLEX #36 tabs 08/22/22 [Rx Last Taken Unknown] Allergy/AdvReac Type Severity Reaction Status Date / Time Sulfa (Sulfonamide Allergy Rash Verified 11/09/22 18:29 Antibiotics) Family History Father Lung cancer Mother Heart disease Surgical History History of artificial heart valve History of hysterectomy History of total right hip replacement Social History Smoking Status: Unknown if ever smoked alcohol intake: current alcohol intake frequency: holidays/special occasions only substance use type: does not use what type of physical activity do you participate in: none ROS Constitutional Constitutional: Reports fatigue and weakness; Denies chills or fever(s) Eyes Eyes: Denies change in vision Cardiovascular Cardiovascular: Denies chest pain, lightheadedness or palpitations Respiratory/Chest Respiratory/Chest: Reports shortness of breath with exertion; Denies cough or shortness of breath at rest Gastrointestinal Gastrointestinal: Reports melena; Denies abdominal pain, constipation, diarrhea, nausea or vomiting Genitourinary Genitourinary: Denies dysuria or hematuria Physical Exam Const alert, oriented x3 and no apparent distress General Appearance: cooperative and well developed HEENT normocephalic and oropharynx normal Mouth: dry mucous membranes Eyes PERRL and EOMs intact bilaterally Neck no lymphadenopathy, supple and no JVD Lymph Lymphatic: no lymphadenopathy noted and no lymphedema noted Resp normal respiratory effort, normal air movement and clear to auscultation bilaterally Cardio regular rate, regular rhythm, S1 normal heart sound, S2 normal heart sound and no murmurs GI normal to inspection, nondistended, normoactive bowel sounds, soft to palpation, non-tender and non-distended Extremity normal capillary refill, no clubbing, cyanosis or edema and no calf tenderness Skin General Skin Exam: no breakdown and turgor normal Neuro CN's II-XII intact bilaterally, no focal motor deficits, no sensory deficits noted and deep tendon reflexes 2+ bilaterally Motor Exam: strength 5/5 throughout and general weakness Psych thought process normal, cooperative and affect normal Appearance: appropriate Lab / Micro Data 11/10/22 06:31 11/10/22 06:31 Labs: Laboratory Results - last 24 hr 11/09/22 19:30: WBC 4.3 L, RBC 1.95 L, Hgb 5.5 L*, Hct 18.5 L, MCV 94.9, MCH 28.2, MCHC 29.7 L, RDW Std Deviation 50.7 H, RDW Coeff of Katie 15.4 H, Plt Count 138 L, MPV 10.1, Immature Gran % (Auto) 1.200 H, Neut % (Auto) 63.2, Lymph % (Auto) 22.4, [place] % (Auto) 12.8 H, Eos % (Auto) 0.2, Baso % (Auto) 0.2, Absolute Neuts (auto) 2.7, Absolute Lymphs (auto) 0.96, Nucleated RBC % 0, Diff Path Review June, Sodium 136, Potassium 2.9 L, Chloride 106, Carbon Dioxide 23.0, Anion Gap 7, BUN 54 H, Creatinine 2.38 H, Estim Creat Clear Calc 15.64, Est GFR (MDRD) Af Amer 25 L, Est GFR (MDRD) Non-Af 21 L, BUN/Creatinine Ratio 22.7 H, Glucose 146 H, Calcium 7.8 L, Blood Type A POSITIVE, Antibody Screen NEGATIVE, Crossmatch See Detail 11/10/22 06:31: WBC 4.8, RBC 2.83 L, Hgb 8.4 L, Hct 26.1 L, MCV 92.2, MCH 29.7, MCHC 32.2 D, RDW Std Deviation 47.6 H, RDW Coeff of Katie 14.6, Plt Count 125 L, MPV 10.6, PT 44.9 H, INR 4.7 H*, Sodium 139, Potassium 3.8, Chloride 112 H, Carbon Dioxide 21.0, Anion Gap 6, BUN 49 H, Creatinine 2.25 H, Estim Creat Clear Calc 16.82, Est GFR (MDRD) Af Amer 27 L, Est GFR (MDRD) Non-Af 22 L, BUN/Creatinine Ratio 21.8 H, Glucose 93, Calcium 7.8 L, Iron 97, TIBC 244 L, Iron Saturation 39.8, Ferritin 209, Vitamin B12 345, Folate 7.70 Assessment & Plan Assessment/Plan (1) GI bleed: QUALIFIERS: GI bleed type/associated pathology: unspecified gastrointestinal hemorrhage type Qualified Code(s): K92.2 - Gastrointestinal hemorrhage, unspecified PLAN: Plan Patient is a 76-year-old female with history of aortic and mitral valve replacements on Coumadin, chronic atrial fibrillation, hypertension and history of cancer of the pelvic bone who presented to [facility] ED on 11/09/2022 with worsening weakness and dark stools. Acute blood loss anemia suspected secondary to GI bleed Suspect a slow upper GI bleed over several weeks to months in setting of anticoagulation with Coumadin as noted below. INR 5.2 on admit. Hemoglobin 5.5 on admit, MCV 94. In ED, typed and cross for 4 units and initiated transfusion of 2 units of packed red blood cells. SANDY Possibly secondary to hypovolemia in setting of an upper GI bleed She will undergo an upper endoscopy. She was explained alternatives, risk, benefits including outstanding bleeding, infection, sepsis, perforation, need for emergent surgery . She have an ASA of 3. Charges/Coding Visit Charges Inpatient E&M: 60943 Init Hosp L3
[2022-11-10] VITALS (19 sets, daily range): BP systolic 103–152; BP diastolic 58–91; PULSE 51–77; RESP 16–18; TEMP 36.3–37.4; O2SAT 97–100; BMI 21.0
[2022-11-10] MEDS: Acetaminophen 325 MG Tablet 650 MG PO (02:37)
[2022-11-10] MEDS: Potassium Chloride Oral Tablet 20 MEQ 60 MEQ PO (03:41)
--- NOTE | 2022-11-10 05:00 | EKG12_ITS ---
Test Reason : AM Blood Pressure : / mmHG Vent. Rate : 062 BPM Atrial Rate : 000 BPM P-R Int : 000 ms QRS Dur : 084 ms QT Int : 486 ms P-R-T Axes : 000 008 066 degrees QTc Int : 493 ms Atrial fibrillation Minimal voltage criteria for LVH, may be normal variant ( Sokolow-Horne ) Septal infarct , age undetermined Abnormal ECG No previous ECGs available Confirmed by OVIDIO SANCHEZ, KAYLAN ([id number]), deputy editor in chief OLEG PADILLA ([id number]) on 11/30/2022 1:45:44 PM Referred By: Confirmed By:KAYLAN NOLAN MD
[2022-11-10 07:34] LABS: Hematocrit 26.1 % (37-47); Hemoglobin 8.4 g/dL (12.0-15.0); Mean Corp Hgb Conc 32.2 g/dL (32-36); Mean Corpuscular Hgb 29.7 pg (27.0-32.0); Mean Corpuscular Volume 92.2 fL (81-99); Mean Platelet Vol. 10.6 fl (6.2-12.0); Platelet Count 125 K/mm3 (150-450); RBC Distribution Width CV 14.6 % (11.6-14.6); RBC Distribution Width SD 47.6 fl (35.1-43.9); Red Blood Count 2.83 M/mm3 (4.2-5.4); White Blood Count 4.8 K/mm3 (4.4-11.0)
[2022-11-10 07:40] LABS: Scan Indicated on CBC? Y/N NO
[2022-11-10 08:01] LABS: Anion Gap 6 (5-15); BUN 49 mg/dL (7-18); BUN/Creat Ratio 21.8 RATIO (10-20); Calcium,Total 7.8 mg/dL (8.5-10.1); Chloride 112 mmol/L (98-107); Creatinine, Serum 2.25 mg/dL (0.55-1.02); EST Glomerular Filtration Rate 22 mL/min (>60); Est Glom Filt Rate - Afr Amer 27 mL/min (>60); Estimated Creatinine Clearance 16.82 ml/min; Glucose 93 mg/dL (74-106); Potassium 3.8 mmol/L (3.5-5.1); Sodium Level 139 mmol/L (136-145)
[2022-11-10 08:03] LABS: Prothrombin Time (Protime)PT. 44.9 SECONDS (11.7-14.9)
[2022-11-10 08:10] LABS: International Normalized Ratio 4.7
[2022-11-10 08:22] LABS: Vitamin B12 345 pg/mL (211-911)
[2022-11-10 08:27] LABS: Ferritin 209 ng/mL (8-252); Iron 97 ug/dL (50-170); Iron Binding Capacity,Total 244 ug/dL (250-450); PERCENT IRON SATURATION 39.8 % (15.0-55.0)
[2022-11-10] MEDS: 0.9% Saline Lock 10 ML Syringe IV ×2 (10:58→20:10)
[2022-11-10] MEDS: 0.9% Normal Saline (250mL Bag) 250 ML 15 ML IV (10:59)
[2022-11-10] MEDS: Pantoprazole Sodium 40 MG in 0.9% Normal Saline (100mL MB+) 100 ML 330 MG IV ×2 (10:59→20:09)
[2022-11-10] MEDS: dilTIAZem CD 180 MG Capsule PO (10:59)
[2022-11-10] MEDS: Lactated Ringers 1,000 ML 15 ML IV (12:45)
--- NOTE | 2022-11-10 13:09 | PN_ITS ---
Subjective Subjective Patient seen and examined. She had no active complaints. She was admitted with a complaint of dark stools. Review of systems is otherwise negative. She has remained hemodynamically stable. GI is on board. Objective Data Objective Data Vital Signs: Vital Signs Temp Pulse Resp BP Pulse Ox O2 Del Method 97.9 F 65 18 141/76 H 97 Room Air 11/10/22 11:05 11/10/22 11:05 11/10/22 11:05 11/10/22 11:05 11/10/22 11:05 11/10/22 11:05 Oxygen Delivery Method Room Air Weight: 115 lb 4.828 oz Body Mass Index (BMI) 21.0 Intake & Output: Intake and Output for Last 24 Hours 11/08/22 11/09/22 11/10/22 23:59 23:59 23:59 Intake Total 260 / 260 417.5 / 417.5 Balance 260 / 260 417.5 / 417.5 Lab / Micro Data 11/10/22 06:31 11/10/22 06:31 Labs: Laboratory Results - last 24 hr 11/09/22 19:30: WBC 4.3 L, RBC 1.95 L, Hgb 5.5 L*, Hct 18.5 L, MCV 94.9, MCH 28.2, MCHC 29.7 L, RDW Std Deviation 50.7 H, RDW Coeff of Katie 15.4 H, Plt Count 138 L, MPV 10.1, Immature Gran % (Auto) 1.200 H, Neut % (Auto) 63.2, Lymph % (Auto) 22.4, [place] % (Auto) 12.8 H, Eos % (Auto) 0.2, Baso % (Auto) 0.2, Absolute Neuts (auto) 2.7, Absolute Lymphs (auto) 0.96, Nucleated RBC % 0, Diff Path Review June, Sodium 136, Potassium 2.9 L, Chloride 106, Carbon Dioxide 23.0, Anion Gap 7, BUN 54 H, Creatinine 2.38 H, Estim Creat Clear Calc 15.64, Est GFR (MDRD) Af Amer 25 L, Est GFR (MDRD) Non-Af 21 L, BUN/Creatinine Ratio 22.7 H, Glucose 146 H, Calcium 7.8 L, Blood Type A POSITIVE, Antibody Screen NEGATIVE, Crossmatch See Detail 11/10/22 06:31: WBC 4.8, RBC 2.83 L, Hgb 8.4 L, Hct 26.1 L, MCV 92.2, MCH 29.7, MCHC 32.2 D, RDW Std Deviation 47.6 H, RDW Coeff of Katie 14.6, Plt Count 125 L, MPV 10.6, PT 44.9 H, INR 4.7 H*, Sodium 139, Potassium 3.8, Chloride 112 H, Carbon Dioxide 21.0, Anion Gap 6, BUN 49 H, Creatinine 2.25 H, Estim Creat Clear Calc 16.82, Est GFR (MDRD) Af Amer 27 L, Est GFR (MDRD) Non-Af 22 L, BUN/Creatinine Ratio 21.8 H, Glucose 93, Calcium 7.8 L, Iron 97, TIBC 244 L, Iron Saturation 39.8, Ferritin 209, Vitamin B12 345, Folate 7.70 Physical Exam Const alert, oriented x3 and no apparent distress General Appearance: cooperative and well developed HEENT normocephalic and oropharynx normal Mouth: dry mucous membranes Eyes PERRL and EOMs intact bilaterally Neck no lymphadenopathy, supple and no JVD Lymph Lymphatic: no lymphadenopathy noted and no lymphedema noted Resp normal respiratory effort, normal air movement and clear to auscultation bilaterally Cardio regular rate, regular rhythm, S1 normal heart sound, S2 normal heart sound and no murmurs GI normal to inspection, nondistended, normoactive bowel sounds, soft to palpation, non-tender and non-distended Extremity normal capillary refill, no clubbing, cyanosis or edema and no calf tenderness Skin General Skin Exam: no breakdown and turgor normal Neuro CN's II-XII intact bilaterally, no focal motor deficits, no sensory deficits noted and deep tendon reflexes 2+ bilaterally Motor Exam: strength 5/5 throughout and general weakness Psych thought process normal, cooperative and affect normal Appearance: appropriate Assessment & Plan Assessment/Plan (1) GI bleed: PLAN: Plan #Acute blood loss anemia due to GI bleed * hb was 5.5 on admission. * s/p transfusion of 2 units of PRBCs * hb today is 8.4 * GI consulted. Currently NPO * on IV pantoprazole 40mg bid * hydrate gently with IVF * Iron panel shows a saturation of 39.8 with iron of 97 and low total iron binding capacity of 244. * #SANDY: resolving. Cr was 2.38, and is now down to 2.25 with hydration. baseline Cr is ~0.98 #History of aortic valve replacement and mechanical valve replacement * coumadin on hold. * INR today: 4.7. Was 5.2 on admission. Give vitamin K 2.5 * continue holding coumadin due to anemia and GI bleed * #Hypokalemia: Resolved with replacement. Potassium is 3.8. #A-fib: On Cardizem. Coumadin held. #Hypertension: On Cardizem. DVT prophylaxis: SCDs. Charges/Coding Visit Charges Inpatient E&M: 38770 Subs Hosp L3
--- NOTE | 2022-11-10 13:59 | OP.EGD_ITS ---
Patient Name: Dalia Calhoun Procedure Date: 11/10/2022 1:46 PM Date of : 1945 Age: 76 Procedure: Upper GI endoscopy Indications: Iron deficiency anemia Providers: Dajuan Pettit DO Medicines: Monitored Anesthesia Care Patient Profile: This is a 76 year old female. Refer to note in patient chart for documentation of history and physical. Patient has symptoms of acute dyspepsia. Complications: No immediate complications. Procedure: Pre-Anesthesia Assessment: - Prior to the procedure, a History and Physical was performed, and patient medications and allergies were reviewed. The risks and benefits of the procedure and the sedation options and risks were discussed with the patient. All questions were answered and informed consent was obtained. Patient identification and proposed procedure were verified by the physician in the pre-procedure area. Mental Status Examination: alert and oriented. Airway Examination: normal oropharyngeal airway and neck mobility. Respiratory Examination: clear to auscultation. CV Examination: normal. Prophylactic Antibiotics: The patient does not require prophylactic antibiotics. Prior Anticoagulants: The patient has taken no anticoagulant or antiplatelet agents. After reviewing the risks and benefits, the patient was deemed in satisfactory condition to undergo the procedure. The anesthesia plan was to use monitored anesthesia care (MAC). Immediately prior to administration of medications, the patient was re-assessed for adequacy to receive sedatives. The heart rate, respiratory rate, oxygen saturations, blood pressure, adequacy of pulmonary ventilation, and response to care were monitored throughout the procedure. The physical status of the patient was re-assessed after the procedure. After obtaining informed consent, the endoscope was passed under direct vision. Throughout the procedure, the patient's blood pressure, pulse, and oxygen saturations were monitored continuously. The Endoscope was introduced through the mouth, and advanced to the second part of duodenum. The upper GI endoscopy was accomplished without difficulty. The patient tolerated the procedure well. Scope In: 1:52:59 PM Scope Out: 1:54:29 PM Total Procedure Duration Time 0 hours 1 minute 30 seconds Findings: The examined esophagus was normal. A small hiatal hernia was present. No other significant abnormalities were identified in a careful examination of the stomach. No gross lesions were noted in the second portion of the duodenum. Impression: - Normal esophagus. - Small hiatal hernia. - No gross lesions in the second portion of the duodenum. - No specimens collected. Recommendation: - Resume previous diet. - Continue present medications. - [facility] to [facility] care. - Clear liquid diet. Procedure Code(s): --- Professional --- 84760, Esophagogastroduodenoscopy, flexible, transoral; diagnostic, including collection of specimen(s) by brushing or washing, when performed (separate procedure) CPT copyright 2021 [employer]. All rights reserved. The codes documented in this report are preliminary and upon senior military analyst review may be revised to meet current compliance requirements. Dajuan Pettit DO 11/10/2022 1:58:46 PM This report has been signed electronically. Number of Addenda: 0 Note Initiated On: 11/10/2022 1:46 PM
--- NOTE | 2022-11-10 13:59 | OP.CCLET_ITS ---
11/10/2022 Leon Mandel Re : Upper GI endoscopy procedure for Dalia Calhoun Dear Dr. Mandel This procedure was performed on October. My impressions and recommendations are as follows: Impressions : - Normal esophagus. - Small hiatal hernia. - No gross lesions in the second portion of the duodenum. - No specimens collected. Recommendations : - Resume previous diet. - Continue present medications. - Return patient to [facility] for ongoing care. - Clear liquid diet. My findings are described in the full procedure note, which is enclosed. If I can be of further assistance, please feel free to contact me at . Sincerely, Dajuan Pettit, 11/10/2022 1:58:46 PM This report has been signed electronically.
--- NOTE | 2022-11-10 14:25 | CASEMGMT ---
RN CM NOTE: To room to complete initial RN CM assessment. Pt out of room at this time. To attempt at a later time. Musa TRIPLETTN RN CM
[2022-11-10] MEDS: 0.9% Normal Saline (1000mL) 1,000 ML 100 ML IV (14:57)
[2022-11-10] MEDS: Bisacodyl 5 MG Tablet 20 MG PO (14:58)
--- NOTE | 2022-11-10 16:00 | CASEMGMT ---
RN SATISH NOTE: To room to complete assessment. Therapy working w/pt at this time. Musa TRIPLETTN RN CM
[2022-11-10] MEDS: Polyethylene Glycol 3350 BOWEL PREP 1 BOTTLE PO (16:32)
--- NOTE | 2022-11-10 17:00 | CASEMGMT ---
RN?CM?RIVER EXPEDITION GUIDE?CM?to room to meet with patient for initial transition planning/care coordination?assessment.?RN?CM?introduced self and role at [facility].? Pt voices understanding and consents to?assessment?at this time.? Pt sitting up in chair in room in no distress at this time.? Pt is A/O at this time and answers all questions appropriately.?? Care providers, pharmacy, and demographics verified/updated at this time. PCP: Dr Leon Mandel Specialists: Dr Ni-lining marker in [place] [facility] Insurance: [place] DHARMESH Prescription Benefit: Yes Living Will/HPOA:?Has both LW and HCPOA, who is her , Chandana LNOK: , Chandana Living Arrangements: Lives w/her , Chandana, dtr, and 2 grandchildren in one-story home w/2 steps to enter. Independent w/ADL's and IADL's and manages her own medications. is slightly handicapped and not able to assist pt much. Dtr helps w/household tasks some. Pt manages her own medications. Transportation:?Pt states drives self and states no transportation concerns at this time.? Family will take her home @ d/c DME: ? Denies using any DME and denies needs.?She does have a BP machine. HHC/SNF: Hx W and [facility]. No hx of HHC. Denies need for HHC or OP therapy. Pt wishes to return home and states has no concerns with going home at time of discharge.? ?CM?to follow for any discharge planning/needs.? Pt voices no concerns/needs at this time.? Advised pt to ask for?CM?if any questions/concerns/needs arise.? Voices understanding. PLAN:?Home? Musa BSN?RN?CM
[2022-11-11] VITALS (10 sets, daily range): BP systolic 85–152; BP diastolic 39–79; PULSE 50–65; RESP 12–18; TEMP 36.6–37.3; O2SAT 95–99
--- NOTE | 2022-11-11 | COLBX_PTH ---
PATIENT: NIKOLE CHU LOC: [facility] U#:[id number] AGE/SX: 76/F ROOM: [facility] RE11/09/[address]: Dr. Esme Velazquez MD : 1945 BED: 1 DIS: 11/14/2022 SPEC #: [id number] RECD: 11/11/22 16:29 STATUS: DENIA AGUILAR #: [id number] MICHELLE: 11/11/22 00:[address]: Dajuan Pettit DEPT: SURGICAL PATHOLOGY RECD BY: Paul Carrasco ENTERED: 11/14/22 09:30 SP TYPE: COLON BX OTHR DR: Dr. Amadeo Iraheta, DO Dr. Yakelin Naqvi Dr., MD Dr. Nana Yaa Koram, MD Dr. Paige Pierce, MD Tissues: A - Cecum, NOS B - Ascending colon Procedures: Surgery Specimen Level IV Comments: @ Ordering doctor for SUIV edited from to @ by IRMA at 11/14/22 1444 @ Submitting doctor edited from to @ by RGOOD at 11/14/22 1444 HEADER OPERATION: Colonoscopy with polypectomy and biopsy PRE-OP DIAGNOSIS: Acute blood loss anemia, GI bleed TISSUE SUBMITTED: A - Cecum polyp, B - Ascending colon biopsy, hemorrhagic colitis MICROSCOPIC DIAGNOSIS A. Cecal polyp, biopsy: Fragments of tubular adenoma. B. Ascending colon, biopsy: No pathologic change. AM:ambrocio 11/15/2022 MICROSCOPIC DESCRIPTION Slides are reviewed. GROSS DESCRIPTION A - Received in fixative is one container labeled with the patient's name and designated cecum polyp. The specimen consists of multiple irregular fragments of light osorio soft tissue that in aggregate measure 1.5 x 0.5 x 0.1 cm. The specimen is totally submitted in one cassette. B - Received in fixative is one container labeled with the patient's name and designated ascending colon biopsy. The specimen consists of multiple irregular fragments of light osorio soft tissue that in aggregate measure 0.6 x 0.5 x 0.1 cm. The specimen is totally submitted in one cassette. / NASEEM:ambrocio 11/14/2022 TC:3 CPT: 96821 x2
[2022-11-11 07:12] LABS: Absolute Lymphocyte Count 0.95 X10^3/uL (0.83-4.51); Absolute Neutrophil Count 4.2 X10^3/uL (2.0-7.7); Basophil# 0.02 X10^3/uL; Basophil% 0.3 % (0-1); Eosinophil# 0.04 X10^3/uL; Eosinophils% 0.7 % (0-5); Hematocrit 26.3 % (37-47); Hemoglobin 8.7 g/dL (12.0-15.0); Lymphocyte # 0.95 X10^3/ul (0.83-4.51); Lymphocyte % 16.3 % (19-41); Mean Corp Hgb Conc 33.1 g/dL (32-36); Mean Corpuscular Hgb 30.6 pg (27.0-32.0); Mean Corpuscular Volume 92.6 fL (81-99); Mean Platelet Vol. 10.1 fl (6.2-12.0); Monocyte# 0.59 X10^3/uL; Monocyte% 10.1 % (0-10); NRBC Flagged by Analyzer 0 % (0-5); Neutrophil # 4.18 X10^3/uL (2.7-7.7); Neutrophil % 71.9 % (47-70); Platelet Count 120 K/mm3 (150-450); RBC Distribution Width CV 15.9 % (11.6-14.6); Red Blood Count 2.84 M/mm3 (4.2-5.4); White Blood Count 5.8 K/mm3 (4.4-11.0)
[2022-11-11 07:41] LABS: Anion Gap 5 (5-15); BUN 44 mg/dL (7-18); BUN/Creat Ratio 20.1 RATIO (10-20); Calcium,Total 7.8 mg/dL (8.5-10.1); Chloride 112 mmol/L (98-107); Creatinine, Serum 2.19 mg/dL (0.55-1.02); EST Glomerular Filtration Rate 23 mL/min (>60); Est Glom Filt Rate - Afr Amer 28 mL/min (>60); Estimated Creatinine Clearance 17.28 ml/min; Glucose 90 mg/dL (74-106); Potassium 4.2 mmol/L (3.5-5.1); Sodium Level 137 mmol/L (136-145)
[2022-11-11] MEDS: Pantoprazole Sodium 40 MG in 0.9% Normal Saline (100mL MB+) 100 ML 330 MG IV ×2 (09:11→21:04)
[2022-11-11] MEDS: 0.9% Saline Lock 10 ML Syringe IV (09:11)
[2022-11-11] MEDS: dilTIAZem CD 180 MG Capsule PO (09:12)
--- NOTE | 2022-11-11 10:38 | PN_ITS ---
Subjective Subjective Patient seen and examined. She had no complaints and had an uneventful night. Review of systems is otherwise negative. She had EGD yesterday which was normal. She is due for colonoscopy today. She has remained hemodynamically stable. Objective Data Objective Data Vital Signs: Vital Signs Temp Pulse Resp BP Pulse Ox O2 Del Method O2 Flow Rate 98.5 F 56 L 12 111/79 96 Room Air 1.5 11/11/22 08:27 11/11/22 08:27 11/11/22 08:27 11/11/22 08:27 11/11/22 08:27 11/11/22 08:27 11/10/22 14:05 Oxygen Flow Rate (L/min) 1.5 Oxygen Delivery Method Room Air Weight: 115 lb 4.828 oz Body Mass Index (BMI) 21.0 Intake & Output: Intake and Output for Last 24 Hours 11/09/22 11/10/22 11/11/22 23:59 23:59 23:59 Intake Total 260 / 260 718.42 / 718.42 110 / 110 Output Total 2 / 2 Balance 260 / 260 718.42 / 718.42 108 / 108 Lab / Micro Data 11/11/22 06:40 11/11/22 06:40 Labs: Laboratory Results - last 24 hr 11/11/22 06:40: WBC 5.8, RBC 2.84 L, Hgb 8.7 L, Hct 26.3 L, MCV 92.6, MCH 30.6, MCHC 33.1, RDW Std Deviation 50.0 H, RDW Coeff of Katie 15.9 H, Plt Count 120 L, MPV 10.1, Immature Gran % (Auto) 0.700, Neut % (Auto) 71.9 H, Lymph % (Auto) 16.3 L, [place] % (Auto) 10.1 H, Eos % (Auto) 0.7, Baso % (Auto) 0.3, Absolute Neuts (auto) 4.2, Absolute Lymphs (auto) 0.95, Nucleated RBC % 0, Sodium 137, Potassium 4.2, Chloride 112 H, Carbon Dioxide 20.0 L, Anion Gap 5, BUN 44 H, Creatinine 2.19 H, Estim Creat Clear Calc 17.28, Est GFR (MDRD) Af Amer 28 L, Est GFR (MDRD) Non-Af 23 L, BUN/Creatinine Ratio 20.1 H, Glucose 90, Calcium 7.8 L Physical Exam Const alert, oriented x3, no apparent distress, average body habitus, healthy appearing and well nourished General Appearance: cooperative, comfortable, well kempt and well developed HEENT normocephalic, head/scalp atraumatic, hearing grossly normal bilaterally, nasal mucous membranes and turbinates normal, moist oral mucous membranes and oropharynx normal Eyes PERRL, EOMs intact bilaterally and conjunctivae normal Neck full ROM, no lymphadenopathy, supple and no JVD Lymph Lymphatic: no lymphadenopathy noted and no lymphedema noted Chest inspection of chest normal Resp normal respiratory effort, normal air movement, no use of accessory muscles and clear to auscultation bilaterally Cardio regular rate, regular rhythm, S1 normal heart sound, S2 normal heart sound, no murmurs and peripheral pulses 2+ throughout GI normal to inspection, nondistended, normoactive bowel sounds, soft to palpation, non-tender and non-distended Back/Spine normal ROM Extremity normal to inspection, full ROM, normal capillary refill, no clubbing, cyanosis or edema, no calf tenderness and no pedal edema Skin no rashes or lesions noted General Skin Exam: no breakdown and turgor normal Neuro CN's II-XII intact bilaterally, no focal motor deficits, no sensory deficits noted and deep tendon reflexes 2+ bilaterally Motor Exam: strength 5/5 throughout and general weakness Psych mental status grossly normal, thought process normal, cooperative and affect normal Appearance: appropriate Assessment & Plan Assessment/Plan (1) GI bleed: QUALIFIERS: GI bleed type/associated pathology: unspecified gastrointestinal hemorrhage type Qualified Code(s): K92.2 - Gastrointestinal hemorrhage, unspecified PLAN: Plan #Acute blood loss anemia due to GI bleed * hb was 5.5 on admission. * s/p transfusion of 2 units of PRBCs * hb today is 8.7 * she had EGD today which was normal. * GI consulted. Currently NPO * on IV pantoprazole 40mg bid * Iron panel shows a saturation of 39.8 with iron of 97 and low total iron binding capacity of 244. * #SANDY: resolving. Cr today down to 2.19. baseline Cr is ~0.98. Continue gentle h ydration with IVF. #History of aortic valve replacement and mechanical valve replacement * coumadin on hold. * INR was 5.7 yesterday and trended down to 4.7. INR pending today * continue holding coumadin due to anemia and GI bleed * #Hypokalemia: Resolved #A-fib: On Cardizem. Coumadin held. #Hypertension: On Cardizem. DVT prophylaxis: SCDs. Charges/Coding Visit Charges Inpatient E&M: 23658 Subs Hosp L2
[2022-11-11 11:06] LABS: International Normalized Ratio 3.5; Prothrombin Time (Protime)PT. 35.9 SECONDS (11.7-14.9)
--- NOTE | 2022-11-11 12:55 | CHAPLAIN ---
Type of Pastoral Visit _x__ Initial Visit ___ Follow-up Visit ___ On-call Visit ___ General Patient Visit ___ Spiritual Assessment ___ Family Conference ___ Bereavement ___ Rapid Response ___ Code Blue ___ Other (describe below) Pastoral Care Referral From _x__ Patient ___ Family ___ Nurse ___ Physician ___ Bundle Packer ___ Cardiology Clinical Nurse Specialist ___ Other (describe below) Sacrament/Intervention _x__ Active listening ___ Anointing ___ Restorationist ___ Bereavement ___ Communion ___ Maribeth exploration ___ ___ Life review _x__ Prayer ___ Reconciliation ___ Sacrament of Sick ___ Supportive presence ___ Wedding ___ Other (describe below) Pastoral Comments patient is to have procedure done and is waiting for that to happen; pt states that a prayer would be fine; she stated no other needs or concerns and said that she has good support from family and friends
[2022-11-11] MEDS: Lactated Ringers 1,000 ML 15 ML IV (12:57)
--- NOTE | 2022-11-11 13:47 | OP.CCLET_ITS ---
11/11/2022 Leon Mandel Re : Colonoscopy procedure for Dalia Calhoun Dear Dr. Mandel This procedure was performed on Friday, November 11, 2022. My impressions and recommendations are as follows: Impressions : - Preparation of the colon was unsatisfactory. - Hemorrhoids found on perianal exam. - Non-bleeding internal hemorrhoids. - Diverticulosis in the recto-sigmoid colon, in the sigmoid colon, in the descending colon, at the splenic flexure, in the transverse colon and at the hepatic flexure. - Stool in the rectum, in the recto-sigmoid colon, in the sigmoid colon, in the descending colon, at the splenic flexure, in the transverse colon, at the hepatic flexure, in the ascending colon and in the cecum. - Segmental moderate inflammation was found at the hepatic flexure, in the ascending colon and in the cecum secondary to colitis. Biopsied. - One 8 mm polyp in the cecum, removed with a hot snare. Resected and retrieved. - One 3 mm polyp in the rectum. -1 g of Ancef was given during the procedure in anticipation for polypectomy or biopsies Recommendations : - Repeat colonoscopy in 2 months because the bowel preparation was suboptimal. - Continue present medications. My findings are described in the full procedure note, which is enclosed. If I can be of further assistance, please feel free to contact me at . Sincerely, Dajuan Pettit, 11/11/2022 1:47:04 PM This report has been signed electronically.
--- NOTE | 2022-11-11 13:47 | OP.COLON_ITS ---
Patient Name: Dalia Calhoun Procedure Date: 11/11/2022 1:12 PM Date of : 1945 Age: 76 Procedure: Colonoscopy Indications: Hematochezia, Iron deficiency anemia Providers: Dajuan Pettit DO Medicines: Monitored Anesthesia Care Patient Profile: This is a 76 year old female. Refer to note in patient chart for documentation of history and physical. Last Colonoscopy: more than 10 years ago. Complications: No immediate complications. Procedure: Pre-Anesthesia Assessment: - Prior to the procedure, a History and Physical was performed, and patient medications and allergies were reviewed. The risks and benefits of the procedure and the sedation options and risks were discussed with the patient. All questions were answered and informed consent was obtained. Patient identification and proposed procedure were verified by the physician. Mental Status Examination: normal. CV Examination: normal. Prophylactic Antibiotics: The patient does not require prophylactic antibiotics. Prior Anticoagulants: The patient has taken no anticoagulant or antiplatelet agents. ASA Grade Assessment: III - A patient with severe systemic disease. After reviewing the risks and benefits, the patient was deemed in satisfactory condition to undergo the procedure. The anesthesia plan was to use monitored anesthesia care (MAC). Immediately prior to administration of medications, the patient was re-assessed for adequacy to receive sedatives. The heart rate, respiratory rate, oxygen saturations, blood pressure, adequacy of pulmonary ventilation, and response to care were monitored throughout the procedure. The physical status of the patient was re-assessed after the procedure. After I obtained informed consent, the scope was passed under direct vision. Throughout the procedure, the patient's blood pressure, pulse, and oxygen saturations were monitored continuously. The Colonoscope was introduced through the anus and advanced to the cecum, identified by appendiceal orifice and ileocecal valve. The colonoscopy was performed without difficulty. The patient tolerated the procedure well. The quality of the bowel preparation was unsatisfactory. The ileocecal valve, appendiceal orifice, and rectum were photographed. Scope In: 1:18:48 PM Scope Withdrawal Time 0 hours 5 minutes 52 seconds Scope Out: 1:35:06 PM Total Procedure Duration Time 0 hours 16 minutes 18 seconds Findings: Hemorrhoids were found on perianal exam. Non-bleeding internal hemorrhoids were found during retroflexion. The hemorrhoids were Grade II (internal hemorrhoids that prolapse but reduce spontaneously). Multiple small and large-mouthed diverticula were found in the recto-sigmoid colon, sigmoid colon, descending colon, splenic flexure, transverse colon and hepatic flexure. Extensive amounts of stool was found in the rectum, in the recto-sigmoid colon, in the sigmoid colon, in the descending colon, at the splenic flexure, in the transverse colon, at the hepatic flexure, in the ascending colon and in the cecum. Segmental moderate inflammation characterized by altered vascularity, erythema, friability and loss of vascularity was found at the hepatic flexure, in the ascending colon and in the cecum. Biopsies were taken with a cold forceps for histology. Verification of patient identification for the specimen was done. Estimated blood loss was minimal. An 8 mm polyp was found in the cecum. The polyp was sessile. The polyp was removed with a hot snare. Resection and retrieval were complete. Verification of patient identification for the specimen was done. Estimated blood loss was minimal. A 3 mm polyp was found in the rectum. The polyp was sessile. Impression: - Preparation of the colon was unsatisfactory. - Hemorrhoids found on perianal exam. - Non-bleeding internal hemorrhoids. - Diverticulosis in the recto-sigmoid colon, in the sigmoid colon, in the descending colon, at the splenic flexure, in the transverse colon and at the hepatic flexure. - Stool in the rectum, in the recto-sigmoid colon, in the sigmoid colon, in the descending colon, at the splenic flexure, in the transverse colon, at the hepatic flexure, in the ascending colon and in the cecum. - Segmental moderate inflammation was found at the hepatic flexure, in the ascending colon and in the cecum secondary to colitis. Biopsied. - One 8 mm polyp in the cecum, removed with a hot snare. Resected and retrieved. - One 3 mm polyp in the rectum. -1 g of Ancef was given during the procedure in anticipation for polypectomy or biopsies Recommendation: - Repeat colonoscopy in 2 months because the bowel preparation was suboptimal. - Continue present medications. Procedure Code(s): --- Professional --- 25417, Colonoscopy, flexible; with removal of tumor(s), polyp(s), or other lesion(s) by snare technique 70662, 59, Colonoscopy, flexible; with biopsy, single or multiple CPT copyright 2021 [employer]. All rights reserved. The codes documented in this report are preliminary and upon death surveys coder review may be revised to meet current compliance requirements. Dajuan Pettit DO 11/11/2022 1:47:04 PM This report has been signed electronically. Number of Addenda: 0 Note Initiated On: 11/11/2022 1:12 PM
[2022-11-12 02:50] VITALS: BP 148/79; PULSE 50; RESP 16; TEMP 36.8; O2SAT 95
[2022-11-12 08:50] VITALS: BP 132/64; PULSE 58; RESP 18; TEMP 37.1; O2SAT 97
[2022-11-12 09:03] LABS: Absolute Lymphocyte Count 1.16 X10^3/uL (0.83-4.51); Absolute Neutrophil Count 4.5 X10^3/uL (2.0-7.7); Basophil# 0.01 X10^3/uL; Basophil% 0.2 % (0-1); Eosinophil# 0.03 X10^3/uL; Eosinophils% 0.5 % (0-5); Hematocrit 28.5 % (37-47); Hemoglobin 8.9 g/dL (12.0-15.0); Lymphocyte # 1.16 X10^3/ul (0.83-4.51); Lymphocyte % 18.3 % (19-41); Mean Corp Hgb Conc 31.2 g/dL (32-36); Mean Corpuscular Hgb 29.7 pg (27.0-32.0); Mean Platelet Vol. 10.4 fl (6.2-12.0); Monocyte# 0.61 X10^3/uL; Monocyte% 9.6 % (0-10); NRBC Flagged by Analyzer 0 % (0-5); Neutrophil # 4.49 X10^3/uL (2.7-7.7); Neutrophil % 70.6 % (47-70); Platelet Count 137 K/mm3 (150-450); RBC Distribution Width CV 16.1 % (11.6-14.6); RBC Distribution Width SD 54.8 fl (35.1-43.9); White Blood Count 6.4 K/mm3 (4.4-11.0)
[2022-11-12 09:21] LABS: Anion Gap 4 (5-15); BUN 38 mg/dL (7-18); BUN/Creat Ratio 15.4 RATIO (10-20); Calcium,Total 7.6 mg/dL (8.5-10.1); Chloride 111 mmol/L (98-107); Creatinine, Serum 2.46 mg/dL (0.55-1.02); EST Glomerular Filtration Rate 20 mL/min (>60); Est Glom Filt Rate - Afr Amer 25 mL/min (>60); Estimated Creatinine Clearance 15.39 ml/min; Glucose 135 mg/dL (74-106); Sodium Level 137 mmol/L (136-145)
[2022-11-12 09:27] LABS: Magnesium 2.1 mg/dL (1.6-2.6)
[2022-11-12] MEDS: dilTIAZem CD 120 MG Capsule PO (10:08)
[2022-11-12] MEDS: Pantoprazole Sodium 40 MG in 0.9% Normal Saline (100mL MB+) 100 ML 330 MG IV ×2 (10:08→20:05)
--- NOTE | 2022-11-12 10:45 | ECHOD_ITS ---
Reason For Study: Arrhythmia Procedure This was a 2D Doppler, Color Flow transthoracic echocardiogram. Exam performed portable in patient room. Left Ventricle Normal LV size. Moderate concentric left ventricular hypertrophy. The estimated ejection fraction is 75 %. Unable to assess diastolic dysfunction. Valsalva gradient of no more than 15 mmHg. No regional wall motion abnormalities noted. Right Ventricle Normal RV size. Normal systolic function. Atria The left atrium is severely enlarged. The right atrium is severely enlarged. No doppler evidence for ASD. Mitral Valve There is no mitral valve stenosis. No mitral valve insufficiency. Stable appearing mechanical mitral valve apparatus. Tricuspid Valve There is no tricuspid stenosis. Severe (4+) tricuspid valve insufficiency. Pulmonary artery systolic pressure is 65 mmHg. Aortic Valve Peak aortic valve gradient 65 mmHg. Mean aortic valve gradient 37 mmHg. Mild (1+) eccentric aortic valve insufficiency. Stable appearing mechanical aortic valve apparatus. Pulmonic Valve There is no pulmonic valvular stenosis. No pulmonic valve insufficiency. Great Vessels Normal aortic root. The pulmonary artery is normal size. Normal inferior vena cava. Pericardium/Pleural No pericardial effusion. MMode/2D Measurements & Calculations LVIDd: 3.6 cm IVSd: 1.6 cm LVOT diam: 1.4 cm LVIDs: 2.0 cm LVPWd: 1.4 cm LVOT area: 1.6 cm2 RVDd: 4.2 cm FS: 45.3 % Ao root diam: 3.5 cm LAV(MOD-bp): 185.8 ml LVAd ap4: 25.1 cm2 LA dimension: 5.9 cm LAV(MOD-bp) Indexed: 123.0 ml/m2 LVLd ap4: 7.4 cm LAV(MOD-sp2): 126.4 ml EDV(MOD-sp4): 70.2 ml LAV(MOD-sp4): 217.6 ml EDV(sp4-el): 72.5 ml LVAs ap4: 10.2 cm2 LVLs ap4: 5.6 cm ESV(MOD-sp4): 17.9 ml ESV(sp4-el): 15.7 ml EF(MOD-sp4): 74.5 % EF(sp4-el): 78.3 % SV(MOD-sp4): 52.3 ml SV(sp4-el): 56.8 ml LA A4 area: 49.4 cm2 RA A4 area: 34.4 cm2 Doppler Measurements & Calculations MV E max tristin: 147.9 cm/sec Lat Peak E' Tristin: 13.9 cm/sec Med Peak E' Tristin: 6.7 cm/sec E/E' lat: 10.7 E/E' med: 22.0 MV V2 max: 159.4 cm/sec Ao V2 max: 401.7 cm/sec AI max tristin: 706.5 cm/sec MV max P.2 mmHg Ao max P.6 mmHg AI max P.7 mmHg MV V2 mean: 65.0 cm/sec Ao V2 mean: 289.3 cm/sec MV mean P.5 mmHg Ao mean P.8 mmHg AI dec slope: 329.8 cm/sec2 MV V2 VTI: 43.0 cm Ao V2 VTI: 99.2 cm AI P1/2t: 627.5 msec PA V2 max: 118.2 cm/sec PI end-d tristin: 102.0 cm/sec TR max tristin: 383.3 cm/sec PA V2 mean: 82.4 cm/sec TR max P.8 mmHg ECHO/Echo Complete Interpretation Summary The estimated ejection fraction is 75 %. Unable to assess diastolic dysfunction. The left atrium is severely enlarged. The right atrium is severely enlarged. Normal LV size. Moderate concentric left ventricular hypertrophy. No regional wall motion abnormalities noted. Valsalva gradient of no more than 15 mmHg. Mechanical mitral and aortic valve both appeared to be functioning well. Ordering Physician: Esther Nolasco Performed By: Jose Olivares RCS
--- NOTE | 2022-11-12 10:47 | PN_ITS ---
Subjective Subjective Patient seen and examined. She had no complaints today and had an uneventful night. She denies any abdominal pain, palpitations, dizziness, nausea, vomiting or any other symptoms. Review of systems is otherwise negative. She was noted to have a short beat run of vtach today. HR is down to 58 this morning. Review of systems is otherwise negative. She had colonoscopy yesterday which showed some colitis and hemorrhoids but was otherwise fine. Objective Data Objective Data Vital Signs: Vital Signs Temp Pulse Resp BP Pulse Ox O2 Del Method O2 Flow Rate 98.8 F 58 L 18 132/64 H 97 Room Air 1.5 11/12/22 08:50 11/12/22 08:50 11/12/22 08:50 11/12/22 08:50 11/12/22 08:50 11/12/22 08:50 11/10/22 14:05 Oxygen Flow Rate (L/min) 1.5 Oxygen Delivery Method Room Air Weight: 115 lb 4.828 oz Body Mass Index (BMI) 21.0 Intake & Output: Intake and Output for Last 24 Hours 11/10/22 11/11/22 11/12/22 23:59 23:59 23:59 Intake Total 718.42 / 718.42 620 / 620 200 / 200 Output Total 2 / 2 Balance 718.42 / 718.42 618 / 618 200 / 200 Lab / Micro Data 11/12/22 08:42 11/12/22 08:42 Labs: Laboratory Results - last 24 hr 11/11/22 06:40: PT 35.9 H, INR 3.5 11/12/22 08:42: WBC 6.4, RBC 3.00 L, Hgb 8.9 L, Hct 28.5 L, MCV 95.0, MCH 29.7, MCHC 31.2 L D, RDW Std Deviation 54.8 H, RDW Coeff of Katie 16.1 H, Plt Count 137 L, MPV 10.4, Immature Gran % (Auto) 0.800, Neut % (Auto) 70.6 H, Lymph % (Auto) 18.3 L, [place] % (Auto) 9.6, Eos % (Auto) 0.5, Baso % (Auto) 0.2, Absolute Neuts (auto) 4.5, Absolute Lymphs (auto) 1.16, Nucleated RBC % 0, Sodium 137, Potassium 4.0, Chloride 111 H, Carbon Dioxide 22.0, Anion Gap 4 L, BUN 38 H, Creatinine 2.46 H, Estim Creat Clear Calc 15.39, Est GFR (MDRD) Af Amer 25 L, Est GFR (MDRD) Non-Af 20 L, BUN/Creatinine Ratio 15.4, Glucose 135 H, Calcium 7.6 L, Magnesium 2.1 Physical Exam Const alert, oriented x3, no apparent distress, average body habitus, healthy appearing and well nourished Constitutional Narrative: Pleasant elderly female, sitting comfortably in bed, conversing normally, no acute distress. General Appearance: cooperative, comfortable, well kempt and well developed HEENT normocephalic, head/scalp atraumatic, hearing grossly normal bilaterally, nasal mucous membranes and turbinates normal, moist oral mucous membranes and oropharynx normal Eyes PERRL, EOMs intact bilaterally and conjunctivae normal Neck full ROM, no lymphadenopathy, supple and no JVD Lymph Lymphatic: no lymphadenopathy noted and no lymphedema noted Chest inspection of chest normal Resp normal respiratory effort, normal air movement, no use of accessory muscles and clear to auscultation bilaterally Cardio regular rate, regular rhythm, S1 normal heart sound, S2 normal heart sound, no murmurs and peripheral pulses 2+ throughout GI normal to inspection, nondistended, normoactive bowel sounds, soft to palpation, non-tender and non-distended Back/Spine normal ROM Extremity normal to inspection, full ROM, normal capillary refill, no clubbing, cyanosis or edema, no calf tenderness and no pedal edema Skin no rashes or lesions noted General Skin Exam: no breakdown and turgor normal Neuro CN's II-XII intact bilaterally, no focal motor deficits, no sensory deficits noted and deep tendon reflexes 2+ bilaterally Motor Exam: strength 5/5 throughout and general weakness Psych mental status grossly normal, thought process normal, cooperative and affect normal Appearance: appropriate Assessment & Plan Assessment/Plan (1) GI bleed: QUALIFIERS: GI bleed type/associated pathology: unspecified gastrointestinal hemorrhage type Qualified Code(s): K92.2 - Gastrointestinal hemorrhage, unspecified PLAN: Plan #Acute blood loss anemia due to GI bleed * hb was 5.5 on admission. * s/p transfusion of 2 units of PRBCs * hb today is 8.9 * she had EGD today which was normal. * had colonoscopy which showed unsatisfactory prep with hemorrhoids on perianal exam and nonbleeding internal hemorrhoids, diverticulosis in the rectosigmoid and sigmoid colon as well as the descending colon, splenic flexure and transverse colon as well as hepatic flexure. He has segmental moderate inflammation of the hepatic flexure and ascending colon as well as in the cecum secondary to colitis and she had a couple of polyps removed. * to have repeat colonoscopy in 2 months due to poor prep, per GI * on IV pantoprazole 40mg bid * Iron panel shows a saturation of 39.8 with iron of 97 and low total iron binding capacity of 244. * #SANDY: Cr trended up to 2.58 today. Continue hydration with IVF and trend Cr #History of aortic valve replacement and mechanical valve replacement * coumadin on hold. * INR was 5.7 yesterday and trended down to 3.5 yesterday. INR today is pending * continue holding coumadin due to anemia and GI bleed * #Hypokalemia: Resolved #A-fib: * On Cardizem. Coumadin held. * HR is in the 50s today. Cardizem dose decreased from 180mg daily to 120mg daily. * She had a short beat run of V. tach today. * Potassium is 4 and magnesium is 2.1. * 2D echo ordered; no baseline echo in EMR. #Hypertension: On Cardizem. DVT prophylaxis: SCDs. Charges/Coding Visit Charges Inpatient E&M: 71750 Subs Hosp L2
[2022-11-12 11:29] LABS: International Normalized Ratio 2.7; Prothrombin Time (Protime)PT. 29.2 SECONDS (11.7-14.9)
[2022-11-12] MEDS: 0.9% Normal Saline (1000mL) 1,000 ML 125 ML IV ×2 (13:29→20:04)
--- NOTE | 2022-11-12 14:17 | PN.GI_ITS ---
Subjective Subjective Patient underwent colonoscopy yesterday. She has not had any bleeding overnight. She is tolerating a diet without any abdominal pain. Objective Data Objective Data Vital Signs: Vital Signs Temp Pulse Resp BP Pulse Ox O2 Del Method O2 Flow Rate 98.8 F 58 L 18 132/64 H 97 Room Air 1.5 11/12/22 08:50 11/12/22 08:50 11/12/22 08:50 11/12/22 08:50 11/12/22 08:50 11/12/22 08:50 11/10/22 14:05 Oxygen Flow Rate (L/min) 1.5 Oxygen Delivery Method Room Air Weight: 115 lb 4.828 oz Body Mass Index (BMI) 21.0 Intake & Output: Intake and Output for Last 24 Hours 11/10/22 11/11/22 11/12/22 23:59 23:59 23:59 Intake Total 718.42 / 718.42 620 / 620 670 / 670 Output Total 2 / 2 Balance 718.42 / 718.42 618 / 618 670 / 670 Lab / Micro Data 11/12/22 08:42 11/12/22 08:42 Labs: Laboratory Results - last 24 hr 11/12/22 08:42: WBC 6.4, RBC 3.00 L, Hgb 8.9 L, Hct 28.5 L, MCV 95.0, MCH 29.7, MCHC 31.2 L D, RDW Std Deviation 54.8 H, RDW Coeff of Katie 16.1 H, Plt Count 137 L, MPV 10.4, Immature Gran % (Auto) 0.800, Neut % (Auto) 70.6 H, Lymph % (Auto) 18.3 L, [place] % (Auto) 9.6, Eos % (Auto) 0.5, Baso % (Auto) 0.2, Absolute Neuts (auto) 4.5, Absolute Lymphs (auto) 1.16, Nucleated RBC % 0, Sodium 137, Potassium 4.0, Chloride 111 H, Carbon Dioxide 22.0, Anion Gap 4 L, BUN 38 H, Creatinine 2.46 H, Estim Creat Clear Calc 15.39, Est GFR (MDRD) Af Amer 25 L, Est GFR (MDRD) Non-Af 20 L, BUN/Creatinine Ratio 15.4, Glucose 135 H, Calcium 7.6 L, Magnesium 2.1 11/12/22 11:01: PT 29.2 H, INR 2.7 Physical Exam Const alert, oriented x3, no apparent distress, average body habitus, healthy appearing and well nourished General Appearance: cooperative, comfortable, well kempt and well developed HEENT normocephalic, head/scalp atraumatic, hearing grossly normal bilaterally, nasal mucous membranes and turbinates normal, moist oral mucous membranes and oropharynx normal Eyes PERRL, EOMs intact bilaterally and conjunctivae normal Neck full ROM, no lymphadenopathy, supple and no JVD Lymph Lymphatic: no lymphadenopathy noted and no lymphedema noted Chest inspection of chest normal Resp normal respiratory effort, normal air movement, no use of accessory muscles and clear to auscultation bilaterally Cardio regular rate, regular rhythm, S1 normal heart sound, S2 normal heart sound, no murmurs and peripheral pulses 2+ throughout GI normal to inspection, nondistended, normoactive bowel sounds, soft to palpation, non-tender and non-distended Back/Spine normal ROM Extremity normal to inspection, full ROM, normal capillary refill, no clubbing, cyanosis or edema, no calf tenderness and no pedal edema Skin no rashes or lesions noted General Skin Exam: no breakdown and turgor normal Neuro CN's II-XII intact bilaterally, no focal motor deficits, no sensory deficits noted and deep tendon reflexes 2+ bilaterally Motor Exam: strength 5/5 throughout and general weakness Psych mental status grossly normal, thought process normal, cooperative and affect normal Appearance: appropriate Assessment & Plan Assessment/Plan (1) GI bleed: QUALIFIERS: GI bleed type/associated pathology: unspecified gastrointestinal hemorrhage type Qualified Code(s): K92.2 - Gastrointestinal hemorrhage, unspecified PLAN: Plan 76 of chemical valve repair basement x2 on anticoagulation presents with acute onset of GI bleed. -Her upper endoscopy did not show any signs or symptoms of recent GI blood loss. -Her colonoscopy had the following findings : - preparation of the colon was unsatisfactory. - Hemorrhoids found on perianal exam. - Non-bleeding internal hemorrhoids. - Diverticulosis in the recto-sigmoid colon, in the sigmoid colon, in the descending colon, at the splenic flexure, in the transverse colon and at the hepatic flexure. - Stool in the rectum, in the recto-sigmoid colon, in the sigmoid colon, in the descending colon, at the splenic flexure, in the transverse colon, at the hepatic flexure, in the ascending colon and in the cecum. - Segmental moderate inflammation was found at the hepatic flexure, in the ascending colon and in the cecum secondary to colitis. Biopsied. - One 8 mm polyp in the cecum, removed with a hot snare. Resected and retrieved. - One 3 mm polyp in the rectum. -1 g of Ancef was given during the procedure in anticipation for polypectomy or biopsies She will need to repeat colonoscopy in approximately 2 months due to a very poor prep. Her hemoglobin seems to be stable. Charges/Coding Visit Charges Inpatient E&M: 19953 Subs Hosp L3
[2022-11-12 14:50] VITALS: BP 145/80; PULSE 65; RESP 18; TEMP 37.4; O2SAT 97
[2022-11-12 20:50] VITALS: BP 153/80; PULSE 56; RESP 18; TEMP 36.9; O2SAT 96
[2022-11-13 03:50] VITALS: BP 160/75; PULSE 56; RESP 18; TEMP 36.6; O2SAT 96
[2022-11-13 04:38] LABS: Absolute Lymphocyte Count 1.24 X10^3/uL (0.83-4.51); Absolute Neutrophil Count 3.2 X10^3/uL (2.0-7.7); Basophil# 0.01 X10^3/uL; Basophil% 0.2 % (0-1); Eosinophil# 0.03 X10^3/uL; Eosinophils% 0.6 % (0-5); Hematocrit 27.9 % (37-47); Hemoglobin 8.8 g/dL (12.0-15.0); Lymphocyte # 1.24 X10^3/ul (0.83-4.51); Lymphocyte % 24.4 % (19-41); Mean Corp Hgb Conc 31.5 g/dL (32-36); Mean Corpuscular Hgb 29.8 pg (27.0-32.0); Mean Corpuscular Volume 94.6 fL (81-99); Mean Platelet Vol. 10.7 fl (6.2-12.0); Monocyte# 0.57 X10^3/uL; Monocyte% 11.2 % (0-10); NRBC Flagged by Analyzer 0 % (0-5); Platelet Count 118 K/mm3 (150-450); RBC Distribution Width CV 16.1 % (11.6-14.6); RBC Distribution Width SD 55.3 fl (35.1-43.9); Red Blood Count 2.95 M/mm3 (4.2-5.4); White Blood Count 5.1 K/mm3 (4.4-11.0)
[2022-11-13 04:57] LABS: Mucous, Urine 0 SEEN /hpf (<or=2+); Squamous Epithelial Cells - UA 0 SEEN /hpf (5-10)
[2022-11-13 05:02] LABS: Color, Urine Brown (Yellow); Glucose, Dipstick 50 mg/dl (Normal); Ketone-Dipstick Negative (Negative); Leukocyte Esterase-Dipstick 25 /ul (Negative); Nitrite-Dipstick Negative (Negative); Occult Blood-Urine 250 /ul (Negative); Protein-Dipstick 100 mg/dl (Negative); Urine Bilirubin Dipstick Negative (Negative); Urine Clarity Sl. Cloudy (Clear); Urine Urobilinogen Normal (Normal)
[2022-11-13 06:09] LABS: Anion Gap 7 (5-15); BUN 38 mg/dL (7-18); BUN/Creat Ratio 14.3 RATIO (10-20); Calcium,Total 7.2 mg/dL (8.5-10.1); Chloride 114 mmol/L (98-107); Creatinine, Serum 2.65 mg/dL (0.55-1.02); EST Glomerular Filtration Rate 19 mL/min (>60); Est Glom Filt Rate - Afr Amer 23 mL/min (>60); Estimated Creatinine Clearance 14.28 ml/min; Glucose 102 mg/dL (74-106); Potassium 4.2 mmol/L (3.5-5.1); Sodium Level 139 mmol/L (136-145)
[2022-11-13 07:17] LABS: Bacteria 1+ /hpf (None Seen); Red Blood Cells-Urine > 100 SEEN /hpf (0-5); White Blood Cells 5-10 SEEN /hpf (0-5)
[2022-11-13 09:50] VITALS: BP 155/77; PULSE 66; RESP 18; TEMP 36.7; O2SAT 96
[2022-11-13] MEDS: Pantoprazole Sodium 40 MG in 0.9% Normal Saline (100mL MB+) 100 ML 330 MG IV ×2 (09:56→20:32)
[2022-11-13] MEDS: dilTIAZem CD 120 MG Capsule PO (10:05)
--- NOTE | 2022-11-13 10:39 | PCM.PROGNOTE ---
Subjective Subjective Patient seen and examined. She has no complaints and had an uneventful night. Review of systems is otherwise negative. Her Cr has trended up some more to 2.65, and bicarb is down to 18. She has remained hemodynamically stable. Objective Data Objective Data Vital Signs: Vital Signs Temp Pulse Resp BP Pulse Ox O2 Del Method O2 Flow Rate 98.1 F 66 18 155/77 H 96 Room Air 1.5 11/13/22 09:50 11/13/22 09:50 11/13/22 09:50 11/13/22 09:50 11/13/22 09:50 11/13/22 10:00 11/10/22 14:05 Oxygen Flow Rate (L/min) 1.5 Oxygen Delivery Method Room Air Weight: 115 lb 4.828 oz Body Mass Index (BMI) 21.0 Intake & Output: Intake and Output for Last 24 Hours 11/11/22 11/12/22 11/13/22 23:59 23:59 23:59 Intake Total 620 / 620 2297.42 / 2297.42 970.83 / 970.83 Output Total 2 / 2 Balance 618 / 618 2297.42 / 2297.42 970.83 / 970.83 Lab / Micro Data 11/13/22 04:10 11/13/22 04:10 Labs: Laboratory Results - last 24 hr 11/09/22 19:30: Crossmatch See Detail 11/12/22 11:01: PT 29.2 H, INR 2.7 11/13/22 04:10: WBC 5.1, RBC 2.95 L, Hgb 8.8 L, Hct 27.9 L, MCV 94.6, MCH 29.8, MCHC 31.5 L, RDW Std Deviation 55.3 H, RDW Coeff of Katie 16.1 H, Plt Count 118 L, MPV 10.7, Immature Gran % (Auto) 0.600, Neut % (Auto) 63.0, Lymph % (Auto) 24.4, [place] % (Auto) 11.2 H, Eos % (Auto) 0.6, Baso % (Auto) 0.2, Absolute Neuts (auto) 3.2, Absolute Lymphs (auto) 1.24, Nucleated RBC % 0, Sodium 139, Potassium 4.2, Chloride 114 H, Carbon Dioxide 18.0 L, Anion Gap 7, BUN 38 H, Creatinine 2.65 H, Estim Creat Clear Calc 14.28, Est GFR (MDRD) Af Amer 23 L, Est GFR (MDRD) Non-Af 19 L, BUN/Creatinine Ratio 14.3, Glucose 102, Calcium 7.2 L 11/13/22 04:45: Urine Color Brown, Urine Clarity Sl. Cloudy, Urine pH 6.0, Ur Specific [place] 1.010, Urine Protein 100 H, Urine Glucose (UA) 50 H, Urine Ketones Negative, Urine Occult Blood 250 H, Urine Nitrite Negative, Urine Bilirubin Negative, Urine Urobilinogen Normal, Ur Leukocyte Esterase 25 H, Urine RBC > 100 SEEN, Urine WBC 5-10 SEEN, Ur Squamous Epith Cells 0 SEEN, Urine Bacteria 1+, Urine Mucus 0 SEEN Physical Exam Const alert, oriented x3, no apparent distress, average body habitus, healthy appearing and well nourished General Appearance: cooperative, comfortable, well kempt and well developed HEENT normocephalic, head/scalp atraumatic, hearing grossly normal bilaterally, nasal mucous membranes and turbinates normal, moist oral mucous membranes and oropharynx normal Eyes PERRL, EOMs intact bilaterally and conjunctivae normal Neck full ROM, no lymphadenopathy, supple and no JVD Lymph Lymphatic: no lymphadenopathy noted and no lymphedema noted Chest inspection of chest normal Resp normal respiratory effort, normal air movement, no use of accessory muscles and clear to auscultation bilaterally Cardio regular rate, regular rhythm, S1 normal heart sound, S2 normal heart sound, no murmurs and peripheral pulses 2+ throughout GI normal to inspection, nondistended, normoactive bowel sounds, soft to palpation, non-tender and non-distended Back/Spine normal ROM Extremity normal to inspection, full ROM, normal capillary refill, no clubbing, cyanosis or edema, no calf tenderness and no pedal edema Skin no rashes or lesions noted General Skin Exam: no breakdown and turgor normal Neuro CN's II-XII intact bilaterally, no focal motor deficits, no sensory deficits noted and deep tendon reflexes 2+ bilaterally Motor Exam: strength 5/5 throughout and general weakness Psych mental status grossly normal, thought process normal, cooperative and affect normal Appearance: appropriate Assessment & Plan Assessment/Plan (1) GI bleed: QUALIFIERS: GI bleed type/associated pathology: unspecified gastrointestinal hemorrhage type Qualified Code(s): K92.2 - Gastrointestinal hemorrhage, unspecified PLAN: Plan #Acute blood loss anemia due to GI bleed hb was 5.5 on admission. s/p transfusion of 2 units of PRBCs hb today is 8.8 she had EGD which was normal. had colonoscopy which showed unsatisfactory prep with hemorrhoids on perianal exam and nonbleeding internal hemorrhoids, diverticulosis in the rectosigmoid and sigmoid colon as well as the descending colon, splenic flexure and transverse colon as well as hepatic flexure. He has segmental moderate inflammation of the hepatic flexure and ascending colon as well as in the cecum secondary to colitis and she had a couple of polyps removed. to have repeat colonoscopy in 2 months due to poor prep, per GI on IV pantoprazole 40mg bid; switch to PO pantoprazole Iron panel shows a saturation of 39.8 with iron of 97 and low total iron binding capacity of 244. #SANDY: Cr continues to trend upwards and is 2.65 today. Will continue hydration with IVF and consult nephrology for their evaluation. #Non anion gap metabolic acidosis: bicarb is 18, with normal anion gap. Likely due to SANDY and should improve as SANDY improves. #History of aortic valve replacement and mechanical mitral valve replacement coumadin on hold. INR was 2.7 yesterday. coumadin has been on hold during this admission due to supratherapeutic INR will monitor INR. goal INR is 2.5-3.5. INR pending today #Hypokalemia: Resolved #A-fib: On Cardizem. Coumadin held. Cardizem dose decreased from 180mg daily to 120mg daily to to mild bradycaria with HR being in the 50s 2D echo done, read is pending #Hypertension: On Cardizem. DVT prophylaxis: SCDs. Charges/Coding Visit Charges Inpatient E&M: 77073 Subs Hosp L2
[2022-11-13 11:35] LABS: International Normalized Ratio 1.4; Prothrombin Time (Protime)PT. 16.9 SECONDS (11.7-14.9)
[2022-11-13 13:19] LABS: Protein, Urine (Random) 198.9 mg/dL (<11.9); Protein:Creat Ratio 5765 mg/g CRE (0-200)
[2022-11-13 15:50] VITALS: BP 168/74; PULSE 60; RESP 18; TEMP 37.4; O2SAT 97
[2022-11-13] MEDS: 0.9% Saline Lock 10 ML Syringe IV (20:32)
[2022-11-13] MEDS: 0.9% Normal Saline (1000mL) 1,000 ML 125 ML IV (20:32)
[2022-11-13 21:40] VITALS: BP 164/88; PULSE 62; RESP 18; TEMP 37.2; O2SAT 100
[2022-11-13 22:10] VITALS: BP 168/87
[2022-11-14] MEDS: 0.9% Normal Saline (1000mL) 1,000 ML 125 ML IV (04:04)
[2022-11-14 04:10] VITALS: BP 174/90; PULSE 63; RESP 18; TEMP 36.6; O2SAT 95
[2022-11-14 05:48] LABS: Absolute Lymphocyte Count 1.13 X10^3/uL (0.83-4.51); Absolute Neutrophil Count 3.5 X10^3/uL (2.0-7.7); Basophil# 0.02 X10^3/uL; Basophil% 0.4 % (0-1); Eosinophil# 0.01 X10^3/uL; Eosinophils% 0.2 % (0-5); Hematocrit 24.6 % (37-47); Hemoglobin 8.1 g/dL (12.0-15.0); Lymphocyte # 1.13 X10^3/ul (0.83-4.51); Lymphocyte % 21.8 % (19-41); Mean Corp Hgb Conc 32.9 g/dL (32-36); Mean Corpuscular Hgb 30.8 pg (27.0-32.0); Mean Corpuscular Volume 93.5 fL (81-99); Monocyte# 0.55 X10^3/uL; Monocyte% 10.6 % (0-10); NRBC Flagged by Analyzer 0 % (0-5); Neutrophil # 3.45 X10^3/uL (2.7-7.7); Neutrophil % 66.6 % (47-70); Platelet Count 111 K/mm3 (150-450); RBC Distribution Width CV 15.7 % (11.6-14.6); RBC Distribution Width SD 53.1 fl (35.1-43.9); Red Blood Count 2.63 M/mm3 (4.2-5.4); White Blood Count 5.2 K/mm3 (4.4-11.0)
[2022-11-14 06:03] LABS: Anion Gap 7 (5-15); BUN 34 mg/dL (7-18); Calcium,Total 7.4 mg/dL (8.5-10.1); Chloride 114 mmol/L (98-107); Creatinine, Serum 2.27 mg/dL (0.55-1.02); EST Glomerular Filtration Rate 22 mL/min (>60); Est Glom Filt Rate - Afr Amer 27 mL/min (>60); Estimated Creatinine Clearance 16.68 ml/min; Glucose 85 mg/dL (74-106); Potassium 3.5 mmol/L (3.5-5.1); Sodium Level 141 mmol/L (136-145)
[2022-11-14 08:56] LABS: Pathologist Review Reviewed
--- NOTE | 2022-11-14 10:00 | EX.PCM.PN.GI ---
Subjective Subjective Patient is doing well without any signs or symptoms of GI bleeding Objective Data Objective Data Vital Signs: Vital Signs Temp Pulse Resp BP Pulse Ox O2 Del Method O2 Flow Rate 99.3 F H 63 18 183/96 H 94 Room Air 1.5 11/14/22 10:17 11/14/22 16:18 11/14/22 10:17 11/14/22 16:18 11/14/22 10:17 11/14/22 14:00 11/10/22 14:05 Oxygen Flow Rate (L/min) 1.5 Oxygen Delivery Method Room Air Weight: 115 lb 4.828 oz Body Mass Index (BMI) 21.0 Intake & Output: Intake and Output for Last 24 Hours 11/12/22 11/13/22 11/14/22 23:59 23:59 23:59 Intake Total 2297.42 / 2297.42 1670.83 / 1670.83 2291.67 / 2291.67 Output Total 500 / 500 500 / 500 Balance 2297.42 / 2297.42 1170.83 / 1170.83 1791.67 / 1791.67 Lab / Micro Data 11/14/22 05:25 11/14/22 05:25 Labs: Laboratory Results - last 24 hr 11/09/22 19:30: Diff Path Review Reviewed 11/14/22 05:25: WBC 5.2, RBC 2.63 L, Hgb 8.1 L, Hct 24.6 L, MCV 93.5, MCH 30.8, MCHC 32.9, RDW Std Deviation 53.1 H, RDW Coeff of Katie 15.7 H, Plt Count 111 L, MPV 10.0, Immature Gran % (Auto) 0.400, Neut % (Auto) 66.6, Lymph % (Auto) 21.8, [place] % (Auto) 10.6 H, Eos % (Auto) 0.2, Baso % (Auto) 0.4, Absolute Neuts (auto) 3.5, Absolute Lymphs (auto) 1.13, Nucleated RBC % 0, Sodium 141, Potassium 3.5, Chloride 114 H, Carbon Dioxide 20.0 L, Anion Gap 7, BUN 34 H, Creatinine 2.27 H, Estim Creat Clear Calc 16.68, Est GFR (MDRD) Af Amer 27 L, Est GFR (MDRD) Non-Af 22 L, BUN/Creatinine Ratio 15.0, Glucose 85, Calcium 7.4 L 11/14/22 11:09: PT 16.1 H, INR 1.3 Radiography Diagnostic Testing: Radiology Impression Echocardiogram 11/12/22 10:45 Interpretation Summary The estimated ejection fraction is 75 %. Unable to assess diastolic dysfunction. The left atrium is severely enlarged. The right atrium is severely enlarged. Normal LV size. Moderate concentric left ventricular hypertrophy. No regional wall motion abnormalities noted. Valsalva gradient of no more than 15 mmHg. Mechanical mitral and aortic valve both appeared to be functioning well. Ordering Physician: Esther Nolasco Performed By: Jose Olivares RCS Renal Ultrasound 11/14/22 11:37 IMPRESSION: Left renal cyst. Mild right hydronephrosis. Increased echotexture of both renal cortices. Electronically Signed: Rodo Damon MD at 14:43 EDT Reading Location ID and State: [address] [place] [address] , Service support , Physical Exam Const alert, oriented x3, no apparent distress, average body habitus, healthy appearing and well nourished General Appearance: cooperative, comfortable, well kempt and well developed HEENT normocephalic, head/scalp atraumatic, hearing grossly normal bilaterally, nasal mucous membranes and turbinates normal, moist oral mucous membranes and oropharynx normal Eyes PERRL, EOMs intact bilaterally and conjunctivae normal Neck full ROM, no lymphadenopathy, supple and no JVD Lymph Lymphatic: no lymphadenopathy noted and no lymphedema noted Chest inspection of chest normal Resp normal respiratory effort, normal air movement, no use of accessory muscles and clear to auscultation bilaterally Cardio regular rate, regular rhythm, S1 normal heart sound, S2 normal heart sound, no murmurs and peripheral pulses 2+ throughout GI normal to inspection, nondistended, normoactive bowel sounds, soft to palpation, non-tender and non-distended Back/Spine normal ROM Extremity normal to inspection, full ROM, normal capillary refill, no clubbing, cyanosis or edema, no calf tenderness and no pedal edema Skin no rashes or lesions noted General Skin Exam: no breakdown and turgor normal Neuro CN's II-XII intact bilaterally, no focal motor deficits, no sensory deficits noted and deep tendon reflexes 2+ bilaterally Motor Exam: strength 5/5 throughout and general weakness Psych mental status grossly normal, thought process normal, cooperative and affect normal Appearance: appropriate Assessment & Plan Assessment/Plan (1) GI bleed: QUALIFIERS: GI bleed type/associated pathology: unspecified gastrointestinal hemorrhage type Qualified Code(s): K92.2 - Gastrointestinal hemorrhage, unspecified PLAN: Plan 76 of chemical valve repair basement x2 on anticoagulation presents with acute onset of GI bleed. -Her upper endoscopy did not show any signs or symptoms of recent GI blood loss. -Her colonoscopy had the following findings : - preparation of the colon was unsatisfactory. - Hemorrhoids found on perianal exam. - Non-bleeding internal hemorrhoids. - Diverticulosis in the recto-sigmoid colon, in the sigmoid colon, in the descending colon, at the splenic flexure, in the transverse colon and at the hepatic flexure. - Stool in the rectum, in the recto-sigmoid colon, in the sigmoid colon, in the descending colon, at the splenic flexure, in the transverse colon, at the hepatic flexure, in the ascending colon and in the cecum. - Segmental moderate inflammation was found at the hepatic flexure, in the ascending colon and in the cecum secondary to colitis. Biopsied. - One 8 mm polyp in the cecum, removed with a hot snare. Resected and retrieved. - One 3 mm polyp in the rectum. -1 g of Ancef was given during the procedure in anticipation for polypectomy or biopsies She will need to repeat colonoscopy in approximately 2 months due to a very poor prep. Her hemoglobin seems to be stable. Charges/Coding Visit Charges Inpatient E&M: 43934 Subs Hosp L3
[2022-11-14 10:17] VITALS: BP 151/86; PULSE 79; RESP 18; TEMP 37.4; O2SAT 94
[2022-11-14] MEDS: dilTIAZem CD 120 MG Capsule PO (10:19)
[2022-11-14] MEDS: Pantoprazole Sodium 40 MG in 0.9% Normal Saline (100mL MB+) 100 ML 330 MG IV (10:19)
[2022-11-14] MEDS: 0.9% Saline Lock 10 ML Syringe IV ×2 (10:19→16:18)
[2022-11-14 11:33] LABS: International Normalized Ratio 1.3; Prothrombin Time (Protime)PT. 16.1 SECONDS (11.7-14.9)
--- NOTE | 2022-11-14 11:37 | US_ITS ---
STUDY: RENAL ULTRASOUND - COMPLETE REASON FOR EXAM: Female, 76 years old. SANDY TECHNIQUE: Ultrasound evaluation of the kidneys was performed with real-time and static man-scale imaging. COMPARISON: None. FINDINGS: RIGHT KIDNEY: Normal location of the right kidney, which is normal in size. The right kidney measures 10.3 cm x 5.8 cm x 4.7 cm. Increased cortical echotexture suggestive of chronic medical disease. The renal cortex measures 1.2 cm. There is no right renal mass or cyst. There are no right renal calculi. There is mild hydronephrosis of the right kidney. DISTAL RIGHT URETER: There is non-visualization of the distal right ureter. There is no demonstrated right ureterovesical junction calculus. There is no demonstrated right ureteral jet. LEFT KIDNEY: Normal location of the left kidney, which is normal in size. The left kidney measures 11.8 cm x 6.2 cm x 4.3 cm. Increased cortical echotexture suggestive of chronic medical renal disease. The renal cortex measures 1.4 cm. There is a 1.3 cm x 1.3 centimeter by 1.2 cm left renal cyst. There are no left renal calculi. There is no left hydronephrosis. DISTAL LEFT URETER: There is non-visualization of the distal left ureter. There is no demonstrated left ureterovesical junction calculus. There is no demonstrated left ureteral jet. BLADDER: The bladder was empty at the time of the examination. US/Kidney and Bladder IMPRESSION: Left renal cyst. Mild right hydronephrosis. Increased echotexture of both renal cortices. Electronically Signed: Rodo Damon MD at 14:43 EDT ,
[2022-11-14] MEDS: HEPARIN/D5w 25,000 UNITS 25,000 UNITS/250 ML IV.SOLN. 8 UNITS CONT INF (11:51)
--- NOTE | 2022-11-14 13:22 | PCM.CONS.R ---
Assessment & Plan Assessment/Plan (1) SANDY (acute kidney injury): PLAN: Baseline creatinine was normal before June 2022. Since July she has been having hematuria and melena. Since then the creatinine has been slowly increasing, now up to about 2.4. Slightly better today. Urine analysis shows hematuria proteinuria. Urine protein creatinine ratio is significantly elevated at 5.5 g however this could be artificially high given she is having hematuria. CT abdomen and renal ultrasound in the past were inconclusive. We will repeat a renal ultrasound to see if there is any structural lesions. I will also send serologies due to significant proteinuria and persistent hematuria. She does not have any rash, pulmonary symptoms to suggest vasculitis. Her main issue right now is bleeding which seems to be in both GI and tract. Upper GI endoscopy negative. Colonoscopy was inconclusive due to poor preparation. With melena, I would expect upper GI lesions. Gastroenterology is following. Serologies have been sent and are pending. Creatinine is slightly better today. 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 Needs Coumadin lifelong with INR goal between 2.5-3.0. Kidney biopsy would be tough in this situation. Since creatinine is not actually getting worse, will hold off. It seems she was also supposed to see Dr. Griggs in [place]. We will reach out to them to see if any other work-up was done. HPI Consult Data Date of Consult: 11/14/22 HPI Narrative Reason for Consultation: Acute renal failure HPI Narrative: NIKOLE CHU, is a 76 F who presents to the hospital with severe anemia. Nephrology on consultation due to acute renal failure. She has known history of double valve replacement aortic and mitral, follows with occ ther Dr. Ni. On Coumadin due to mechanical valve history. She states since July she has been having bleeding in the cath and bleeding in the urine. She describes the GI bleeding as dark melanotic sticky stools. Hematuria is usually blood mixed with urine. Upper GI endoscopy is negative, lower GI endoscopy somewhat poor preparation but there was hemorrhoids. Currently denies any hematuria today. No breathing difficulties. She was treated with antibiotics for hemorrhagic cystitis before. It seems she was admitted at [facility] in July with similar issues. CT abdomen did not show any acute issues. [facility] Medical History (Updated 11/14/22 @ 13:[address] Yakelin Fernandez MD) Acute cystitis Atrial fibrillation Cancer of pelvic bone Hematuria HTN (hypertension) Vitamin deficiency Home Medications acetaminophen 500 mg tablet 1,000 mg (2 x 500 mg) PO TID PRN PRN Pain #90 tabs 06/15/15 [Rx Last Taken Unknown] cholecalciferol (vitamin D3) 25 mcg (1,000 unit) tablet 2,000 unit PO DAILY #30 tabs 06/15/15 [Rx Last Taken 06/19/15 08:00] diltiazem HCl 180 mg capsule,extended release 24 hr 180 mg PO DAILY #90 caps 12/16/21 [Rx Last Taken Unknown] warfarin 3 mg tablet See Rx Instructions .Route .COMPLEX #120 tabs 08/22/22 [Rx Last Taken Unknown] warfarin 5 mg tablet See Rx Instructions .Route .COMPLEX #36 tabs 08/22/22 [Rx Last Taken Unknown] Allergy/AdvReac Type Severity Reaction Status Date / Time Sulfa (Sulfonamide Allergy Rash Verified 11/09/22 18:29 Antibiotics) Family History Father Lung cancer Mother Heart disease Surgical History History of artificial heart valve History of hysterectomy History of total right hip replacement Social History Smoking Status: Unknown if ever smoked alcohol intake: current alcohol intake frequency: holidays/special occasions only substance use type: does not use what type of physical activity do you participate in: none ROS ROS Narrative Negative except above Physical Exam Narrative Alert awake oriented x 3 no obvious distress no pallor no icterus no JVD s1s2 no murmurs lungs clear abdomen soft no organomegaly no edema no cyanosis Lab / Micro Data 11/14/22 05:25 11/14/22 05:25 Labs: Laboratory Results - last 24 hr 11/09/22 19:30: Diff Path Review Reviewed 11/14/22 05:25: WBC 5.2, RBC 2.63 L, Hgb 8.1 L, Hct 24.6 L, MCV 93.5, MCH 30.8, MCHC 32.9, RDW Std Deviation 53.1 H, RDW Coeff of [place] 15.7 H, Plt Count 111 L, MPV 10.0, Immature Gran % (Auto) 0.400, Neut % (Auto) 66.6, Lymph % (Auto) 21.8, [place] % (Auto) 10.6 H, Eos % (Auto) 0.2, Baso % (Auto) 0.4, Absolute Neuts (auto) 3.5, Absolute Lymphs (auto) 1.13, Nucleated RBC % 0, Sodium 141, Potassium 3.5, Chloride 114 H, Carbon Dioxide 20.0 L, Anion Gap 7, BUN 34 H, Creatinine 2.27 H, Estim Creat Clear Calc 16.68, Est GFR (MDRD) Af Amer 27 L, Est GFR (MDRD) Non-Af 22 L, BUN/Creatinine Ratio 15.0, Glucose 85, Calcium 7.4 L 11/14/22 11:09: PT 16.1 H, INR 1.3 Radiology Impression Echocardiogram 11/12/22 10:45 Interpretation Summary The estimated ejection fraction is 75 %. Unable to assess diastolic dysfunction. The left atrium is severely enlarged. The right atrium is severely enlarged. Normal LV size. Moderate concentric left ventricular hypertrophy. No regional wall motion abnormalities noted. Valsalva gradient of no more than 15 mmHg. Mechanical mitral and aortic valve both appeared to be functioning well. Ordering Physician: Esther Nolasco Performed By: Jose Olivares RCS
--- NOTE | 2022-11-14 15:00 | PCM.DC ---
Discharge Instructions Diet Discharge Diet: No restrictions Activity Discharge Activity: Return to Normal Activity Follow Up Care Test Results: Test results from this visit will be discussed in further detail at your follow-up appointment, if applicable. Discharge Plan Admission Admit Date/Time: 11/09/22 20:03 Attending Provider: Esme Velazquez Primary Care Provider: Leon Mandel Consulting Providers: Amadeo Iraheta; Yakelin Fernandez; Esther Nolasco Instructions Patient Instructions: GI Bleeding Causes and Tests Additional Instructions / Restrictions: DISCHARGE INSTRUCTIONS PLEASE READ *Please take this with you to your next doctors appointment* -Please follow-up with nephrology upon discharge. Please call their office to schedule hospital follow-up appointment upon discharge, if you are already established with digital computer systems analyst he may follow-up with them as an alternative -Would recommend lab work (CBC and BMP) to check your blood counts and kidney function in 2 to 3 days through your primary care physician's office. Please call their office upon discharge to obtain order for lab work. -Strongly advised to reschedule your appointment with Dr. Manley on d/c -You will need to follow-up with Dr. Pettit with GI in his office upon discharge. Please call his office to schedule your hospital follow-up appointment (ph. [phone]) -You will need your INR checked in 2 days, this can be done through the office of the physician prescribing and monitoring your Coumadin. Please call their office upon discharge to acquire order for lab work and schedule hospital follow-up. Please resume your Coumadin, due to a low INR and your mechanical valves you will need to be bridged with Lovenox, you will use 60 mg once daily subcutaneously. A 10-day supply has been sent to the your preferred pharmacy on file and further management management of this and your Coumadin will be at the discretion of your outpatient physician. -Please call your primary care provider's office upon discharge to schedule a hospital follow up within 1 week. -For any concerning signs or symptoms please call 911 or proceed to the nearest emergency department Discharge Orders/Prescriptions Prescriptions: New enoxaparin [Lovenox] 60 mg/0.6 mL syringe 60 mg subcut DAILY Qty: 6 0RF (DME) pen needle, diabetic [Pen Needle] 29 gauge x 1/2 needle See Rx Instructions .Route Qty: 100 0RF Rx Instructions: As directed Continued acetaminophen 500 MG tablet 1,000 mg PO TID PRN PRN (Reason: Pain) Qty: 90 0RF Patient Comments: Pain as needed cholecalciferol (vitamin D3) 1,000 UNIT tablet 2,000 unit PO DAILY Qty: 30 0RF Patient Comments: Supplement diltiazem HCl 180 mg capsule,extended release 24hr 180 mg PO DAILY Qty: 90 0RF warfarin 3 mg tablet See Rx Instructions .ROUTE .COMPLEX Qty: 120 1RF Hold Instructions: Ordered Dose Instruction: TAKE 2 TABLETS BY MOUTH EVERY DAY Rx Instructions: TAKE 2 TABLETS BY MOUTH EVERY DAY warfarin 5 mg tablet See Rx Instructions .ROUTE .COMPLEX Qty: 36 2RF Hold Instructions: Ordered Dose Instruction: TAKE 1 TABLET BY MOUTH ON MONDAY, MONDAY, MONDAY, AND MONDAY Rx Instructions: TAKE 1 TABLET BY MOUTH ON MONDAY, MONDAY, MONDAY, AND MONDAY Referrals / Follow Up: Leon Mandel DO [Primary Care Provider] - Within 1 Week Chanel Manley MD [Med Staff - Active Staff] - (Please call the office to reschedule the appointment that he missed while you are hospitalized) Yakelin Fernandez MD [Med Staff - Consulting] - Disposition Disposition (needs filled in before D/C Order can be placed): Home, Self Care
--- NOTE | 2022-11-14 15:05 | DS.PCM_ITS ---
Providers Date of Admission: 11/09/22 Date of Discharge: 11/14/22 Primary Care Physician: Dr. Leon Mandel, DO Consultations 11/09/22 21:09 Consult: Gastroenterology Routine Consulting Provider: [facility] Reason for Consult: GI bleed EMERGENT Consult: No Notified: Yes Date Notified: 11/10/22 Time Notified: 06:53 Method of Notification: Text 11/13/22 10:39 Consult: Nephrology Routine Consulting Provider: Yakelin Fernandez Reason for Consult: SANDY on CKD 3 EMERGENT Consult: No Notified: Yes Date Notified: 11/13/22 Time Notified: 10:39 Method of Notification: Text Reason For Visit: ACUTE BLOOD LOSS ANEMIA, GI BLEED Diagnosis Discharge Diagnosis (1) SANDY (acute kidney injury): Status: Acute Code(s): N17.9 - Acute kidney failure, unspecified (2) GI bleed: Status: Acute Code(s): K92.2 - Gastrointestinal hemorrhage, unspecified Qualifiers: GI bleed type/associated pathology: unspecified gastrointestinal hemorrhage type Qualified Code(s): K92.2 - Gastrointestinal hemorrhage, unspecified (3) Aortic valve replaced: Status: Chronic Code(s): Z95.2 - Presence of prosthetic heart valve (4) Mitral valve replaced: Status: Chronic Code(s): Z95.2 - Presence of prosthetic heart valve (5) HTN (hypertension): Status: Chronic Code(s): I10 - Essential (primary) hypertension (6) correction current use of anticoagulant: Status: Acute Code(s): Z79.01 - local company intermodal truck driver (current) use of anticoagulants Plan #GIBleed # mechanical AV and [facility] MV on chronic coumadin #SANDY on CKD IIIb #Hematuria #AFIB Medications at Discharge Home Medications acetaminophen 500 mg tablet 1,000 mg (2 x 500 mg) PO TID PRN PRN Pain #90 tabs 06/15/15 cholecalciferol (vitamin D3) 25 mcg (1,000 unit) tablet 2,000 unit PO DAILY VITAMIN #30 tabs 06/15/15 diltiazem HCl 180 mg capsule,extended release 24 hr 180 mg PO DAILY HEART #90 caps 12/16/21 warfarin 3 mg tablet See Rx Instructions .Route .COMPLEX BLOOD THINNER #120 tabs 07/03/23 warfarin 5 mg tablet See Rx Instructions .Route .COMPLEX BLOOD THINNER #36 tabs 08/22/22 enoxaparin 60 mg/0.6 mL subcutaneous syringe (Lovenox) 60 mg (0.6 mL) subcut DAILY #6 mL 11/14/22 pen needle, diabetic 29 gauge x 1/2 (Pen Needle) #100 ea 11/14/22 Hospital Course Procedures EGD Summary of Care Provided Minutes Spent on Discharge: 40 Hospital Course: NIKOLE CHU, is a 76 F with history of aortic and mitral valve replacements on Coumadin, chronic atrial fibrillation, hypertension and history of cancer of the pelvic bone who presented to [facility] ED on 11/09/2022 with worsening weakness and dark stools. Her hemoglobin in the ED was 5.5 and her INR was 5.2, she was typed and crossed and transfused 2 units packed red blood cells, IV PPI twice daily, GI consulted and her Coumadin held. EGD overall unremarkable, colonoscopy with leading hemorrhoids, diverticulosis, moderate inflammation hepatic flexure which was biopsied, and 2 polyps removed with hot snare but very poor bowel prep with need for repeat colonoscopy in 2 months. Patient's hemoglobin stabilized and INR went down to below therapeutic at 1.4, given her with mechanical aortic and mitral valves she was started on heparin drip and Coumadin and this was discussed with gastroenterology. She is very high risk for stroke, we will plan to bridge with Lovenox. Hospitalization additionally confounded by SANDY and CKD, she reported she has been having hematuria since July and has been somewhat better recently but still is red- tinged urine and her creatinine has been worsening over that same period of time. Renal ultrasound with any structural explanation, patient follow-up with urology outpatient, nephrology consulted and patient and on day of discharge creatinine improved slightly. Broad work-up sent, given patient's stability discussed with nephrology and they are comfortable with discharge and outpatient follow-up and further work-up. Patient comfortable with plan and had no new complaints on discharge, still had some residual dark stools but no bright red bleeding and no abdominal pain or nausea patient eating and drinking well. Discharge instructions as follows: -Please follow-up with nephrology upon discharge. Please call their office to schedule hospital follow-up appointment upon discharge, if you are already established with disability benefits specialist he may follow-up with them as an alternative -Would recommend lab work (CBC and BMP) to check your blood counts and kidney function in 2 to 3 days through your primary care physician's office. Please call their office upon discharge to obtain order for lab work. -Strongly advised to reschedule your appointment with Dr. Manley on d/c -You will need to follow-up with Dr. Pettit with GI in his office upon discharge. Please call his office to schedule your hospital follow-up appointment (ph. [phone]) -You will need your INR checked in 2 days, this can be done through the office of the physician prescribing and monitoring your Coumadin. Please call their office upon discharge to acquire order for lab work and schedule hospital follow-up. Please resume your Coumadin, due to a low INR and your mechanical valves you will need to be bridged with Lovenox, you will use 60 mg once daily subcutaneously. A 10-day supply has been sent to the your preferred pharmacy on file and further management management of this and your Coumadin will be at the discretion of your outpatient physician. -Please call your primary care provider's office upon discharge to schedule a hospital follow up within 1 week. -For any concerning signs or symptoms please call 911 or proceed to the nearest emergency department Physical Exam Narrative General: Alert, oriented, no apparent distress HEENT: Atraumatic, normocephalic Eyes: Anicteric, normal conjunctiva, extraocular movements grossly intact Neck: Supple Respiratory: Clear to auscultation bilaterally, normal respiratory effort Cardiovascular: Regular rate, clicking consistent with mechanical valve appreciated throughout precordium GI: Soft, nontender, nondistended Extremities: No edema Musculoskeletal: Moving all extremities Neuro: No overt focal neurological deficits Skin: No rashes appreciated Psych: Cooperative Weight / BMI Weight Weight: 52.3 kg Body Mass Index (BMI) 21.0 ABG / Lab / Microbiology Data 11/14/22 05:25 11/14/22 05:25 Laboratory: Laboratory Results - last 24 hr 11/09/22 19:30: Diff Path Review Reviewed 11/14/22 05:25: WBC 5.2, RBC 2.63 L, Hgb 8.1 L, Hct 24.6 L, MCV 93.5, MCH 30.8, MCHC 32.9, RDW Std Deviation 53.1 H, RDW Coeff of Katie 15.7 H, Plt Count 111 L, MPV 10.0, Immature Gran % (Auto) 0.400, Neut % (Auto) 66.6, Lymph % (Auto) 21.8, [place] % (Auto) 10.6 H, Eos % (Auto) 0.2, Baso % (Auto) 0.4, Absolute Neuts (auto) 3.5, Absolute Lymphs (auto) 1.13, Nucleated RBC % 0, Sodium 141, Potassium 3.5, Chloride 114 H, Carbon Dioxide 20.0 L, Anion Gap 7, BUN 34 H, Creatinine 2.27 H, Estim Creat Clear Calc 16.68, Est GFR (MDRD) Af Amer 27 L, Est GFR (MDRD) Non-Af 22 L, BUN/Creatinine Ratio 15.0, Glucose 85, Calcium 7.4 L 11/14/22 11:09: PT 16.1 H, INR 1.3 Radiography Diagnostic Testing: Radiology Impression Echocardiogram 11/12/22 10:45 Interpretation Summary The estimated ejection fraction is 75 %. Unable to assess diastolic dysfunction. The left atrium is severely enlarged. The right atrium is severely enlarged. Normal LV size. Moderate concentric left ventricular hypertrophy. No regional wall motion abnormalities noted. Valsalva gradient of no more than 15 mmHg. Mechanical mitral and aortic valve both appeared to be functioning well. Ordering Physician: Esther Nolasco Performed By: Jose Olivares RCS Renal Ultrasound 11/14/22 11:37 IMPRESSION: Left renal cyst. Mild right hydronephrosis. Increased echotexture of both renal cortices. Electronically Signed: Rodo Damon MD at 14:43 EDT , D/C Instructions Discharge Diet: No restrictions Meaningful Use Info Meaningful Use Diagnoses (Choose all that apply): None applicable Discharge Plan Admission Admit Date/Time: 11/09/22 20:03 Primary Reason for Your Visit: Low hemoglobin Attending Provider: Esme Velazquez Primary Care Provider: Leon Mandel Consulting Providers: Amadeo Iraheta; Yakelin Fernandez; Esther Nolasco Instructions Patient Instructions: GI Bleeding Causes and Tests Additional Instructions / Restrictions: DISCHARGE INSTRUCTIONS PLEASE READ *Please take this with you to your next doctors appointment* -Please follow-up with nephrology upon discharge. Please call their office to schedule hospital follow-up appointment upon discharge, if you are already established with disability benefits specialist he may follow-up with them as an alternative -Would recommend lab work (CBC and BMP) to check your blood counts and kidney function in 2 to 3 days through your primary care physician's office. Please call their office upon discharge to obtain order for lab work. -Strongly advised to reschedule your appointment with Dr. Manley on d/c -You will need to follow-up with Dr. Pettit with GI in his office upon discharge. Please call his office to schedule your hospital follow-up appointment (ph. [phone]) -You will need your INR checked in 2 days, this can be done through the office of the physician prescribing and monitoring your Coumadin. Please call their office upon discharge to acquire order for lab work and schedule hospital follow-up. Please resume your Coumadin, due to a low INR and your mechanical valves you will need to be bridged with Lovenox, you will use 60 mg once daily subcutaneously. A 10-day supply has been sent to the your preferred pharmacy on file and further management management of this and your Coumadin will be at the discretion of your outpatient physician. -Please call your primary care provider's office upon discharge to schedule a hospital follow up within 1 week. -For any concerning signs or symptoms please call 911 or proceed to the nearest emergency department Discharge Orders/Prescriptions Prescriptions: New enoxaparin [Lovenox] 60 mg/0.6 mL syringe 60 mg subcut DAILY Qty: 6 0RF (DME) pen needle, diabetic [Pen Needle] 29 gauge x 1/2 needle See Rx Instructions .Route Qty: 100 0RF Rx Instructions: As directed Continued acetaminophen 500 MG tablet 1,000 mg PO TID PRN PRN (Reason: Pain) Qty: 90 0RF Patient Comments: Pain as needed cholecalciferol (vitamin D3) 1,000 UNIT tablet 2,000 unit PO DAILY Qty: 30 0RF Patient Comments: Supplement diltiazem HCl 180 mg capsule,extended release 24hr 180 mg PO DAILY Qty: 90 0RF warfarin 3 mg tablet See Rx Instructions .ROUTE .COMPLEX Qty: 120 1RF Hold Instructions: Ordered Dose Instruction: TAKE 2 TABLETS BY MOUTH EVERY DAY Rx Instructions: TAKE 2 TABLETS BY MOUTH EVERY DAY warfarin 5 mg tablet See Rx Instructions .ROUTE .COMPLEX Qty: 36 2RF Hold Instructions: MD Ordered Dose Instruction: TAKE 1 TABLET BY MOUTH ON MONDAY, MONDAY, MONDAY, AND MONDAY Rx Instructions: TAKE 1 TABLET BY MOUTH ON MONDAY, MONDAY, MONDAY, AND MONDAY Referrals / Follow Up: Leon Mandel DO [Primary Care Provider] - Within 1 Week Chanel Manley MD [Med Staff - Active Staff] - (Please call the office to reschedule the appointment that he missed while you are hospitalized) Yakelin Fernandez MD [Med Staff - Consulting] - Disposition Disposition (needs filled in before D/C Order can be placed): Home, Self Care Charges/Coding Visit Charges Inpatient E&M: 61421 Disch Hosp >30min
--- NOTE | 2022-11-14 15:30 | PHA.DC_ITS ---
Pharmacy [facility] has performed discharge medication reconciliation and counseling for this patient. The patient's discharge medication list was reviewed for discrepancies and discrepancies were resolved. The patient was counseled on the following discharge medications and changes in medications for homegoing were reviewed. The Reason for Use, instructions for use, and potential side effects were reviewed for all new medications. The patient's questions regarding all of their medications were answered. 1. Enoxaparin 60 mg SQ daily for a duration as directed by manager new product of warfarin therapy The patient was able to verbally demonstrate an understanding of their discharge medications. Medications at Discharge Home Medications acetaminophen 500 mg tablet 1,000 mg (2 x 500 mg) PO TID PRN PRN Pain #90 tabs 06/15/15 cholecalciferol (vitamin D3) 25 mcg (1,000 unit) tablet 2,000 unit PO DAILY VITAMIN #30 tabs 06/15/15 diltiazem HCl 180 mg capsule,extended release 24 hr 180 mg PO DAILY HEART #90 caps 12/16/21 warfarin 3 mg tablet See Rx Instructions .Route .COMPLEX BLOOD THINNER #120 tabs 08/22/22 warfarin 5 mg tablet See Rx Instructions .Route .COMPLEX BLOOD THINNER #36 tabs 08/22/22 enoxaparin 60 mg/0.6 mL subcutaneous syringe (Lovenox) 60 mg (0.6 mL) subcut DAILY #6 mL 11/14/22 pen needle, diabetic 29 gauge x 1/2 (Pen Needle) #100 ea 11/14/22
[2022-11-14 16:15] VITALS: BP 183/96; PULSE 63; RESP 18; TEMP 37.3; O2SAT 95
--- NOTE | 2022-11-14 16:16 | CASEMGMT ---
Patient discharging on Lovenox. RN CM called [facility] to confirm brewer. Cost is $75.84. RN CM in to update patient. Patient states she can afford medication. Patient denied further needs. Patient had no further questions or concerns.
[2022-11-14 16:18] VITALS: BP 183/96; PULSE 63
[2022-11-14] MEDS: hydrALAZINE 20 MG/ML Vial 10 MG IV (16:18)
[2022-11-14 17:11] VITALS: BP 154/77; PULSE 67; RESP 16; TEMP 36.8; O2SAT 96
[2022-11-15 05:07] LABS: Complement C3 118 mg/dL (82-167)
[2022-11-15 14:09] LABS: Albumin 2.3 g/dL (2.9-4.4); Alpha-1-Globulins 0.3 g/dL (0.0-0.4); Alpha-2-Globulins 0.4 g/dL (0.4-1.0); Cytoplasmic Ab (C-ANCA) <1:20 titer (Neg:<1:20); Immunoglobulin A 346 mg/dL (64-422); Immunoglobulin G 1091 mg/dL (586-1602); Immunoglobulin M 75 mg/dL (26-217); PROEL- TOTAL PROTEIN 4.8 g/dL (6.0-8.5); Perinuclear Ab (P-ANCA) <1:20 titer (Neg:<1:20)
== END 2022-11-14 18:31 | disposition home or self-care (01) | DRG 811 ==
LOC: ED 20:11 → PCU 20:59
PROVIDERS: Anesthesiology; Internal Medicine Gastroenterology; Internal Medicine Nephrology; Student in an Organized Health Care Education/Training Program; Admitting Provider Hospitalist; Emergency Provider Emergency Medicine; PCP Family Medicine; Visit Provider Internal Medicine
PROC: 0DJ08ZZ Inspection of Upper Intestinal Tract, Via Natural or Artificial Opening Endoscopic (ICD-10-PCS; CPT 43235; principal; 2022-11-10 13:25)
PROC: 0DJD8ZZ Inspection of Lower Intestinal Tract, Via Natural or Artificial Opening Endoscopic (ICD-10-PCS; CPT 45378; principal; 2022-11-11 13:25)
DX: D62 Acute posthemorrhagic anemia (principal); K57.31 Diverticulosis of large intestine without perforation or abscess with bleeding; N17.9 Acute kidney failure, unspecified; I47.20 Ventricular tachycardia, unspecified; E87.20 Acidosis, unspecified; I48.20 Chronic atrial fibrillation, unspecified; E86.1 Hypovolemia; E87.6 Hypokalemia; N18.32 Chronic kidney disease, stage 3b; I12.9 Hypertensive chronic kidney disease with stage 1 through stage 4 chronic kidney disease, or unspecified chronic kidney disease; K52.9 Noninfective gastroenteritis and colitis, unspecified; K44.9 Diaphragmatic hernia without obstruction or gangrene; K63.5 Polyp of colon; K64.1 Second degree hemorrhoids; K62.1 Rectal polyp; Z95.2 Presence of prosthetic heart valve; R80.9 Proteinuria, unspecified; R31.9 Hematuria, unspecified; R79.1 Abnormal coagulation profile; Z79.01 Long term (current) use of anticoagulants; Z79.899 Other long term (current) drug therapy; Z96.641 Presence of right artificial hip joint
CPT/HCPCS: 36415; 76770; 80048; 81001; 82570; 82607; 82728; 82746; 82784; 83540; 83550; 83735; 84156; 84165; 85025; 85027; 85610; 86160; 86256; 86334; 86850; 86900; 86901; 86920; 87086; 87088; 88305; 93005; 93306; 97110; 97162; 97165; 97530; 99284; J7030; J7040; J7050; J7120; P9016; A4216; J2405

== ENCOUNTER → 2022-11-09 | Outpatient (CLI) | payer MEDICARE, SELFPAY ==
[2022-11-09 15:36] LABS: Mucous, Urine 0 SEEN /hpf (<or=2+)
[2022-11-09 17:42] LABS: Prothrombin Time (Protime)PT. 49.2 SECONDS (11.7-14.9)
[2022-11-09 17:46] LABS: Color, Urine Yellow (Yellow); Glucose, Dipstick 50 mg/dl (Normal); Ketone-Dipstick Negative (Negative); Leukocyte Esterase-Dipstick 25 /ul (Negative); Nitrite-Dipstick Negative (Negative); Occult Blood-Urine 250 /ul (Negative); Protein-Dipstick 500 mg/dl (Negative); Specific Gravity, Urine 1.015 (1.002-1.030); Urine Bilirubin Dipstick Negative (Negative); Urine Clarity Sl. Cloudy (Clear); Urine Urobilinogen Normal (Normal)
[2022-11-09 17:48] LABS: International Normalized Ratio 5.2
[2022-11-09 18:03] LABS: Red Blood Cells-Urine 50-100 SEEN /hpf (0-5); White Blood Cells 10-25 SEEN /hpf (0-5)
[2022-11-09 18:04] LABS: Bacteria 1+ /hpf (None Seen); Yeast-Urine RARE /hpf (None Seen)
[2022-11-09 18:05] LABS: Squamous Epithelial Cells - UA 0-5 SEEN /hpf (5-10)
== END | disposition home or self-care (01) ==
LOC: BIMLAB 15:13
PROVIDERS: PCP Family Medicine; Visit Provider Family Medicine
DX: R31.9 Hematuria, unspecified (principal)
CPT/HCPCS: 36415; 81001; 85610

== ENCOUNTER 2022-11-17 14:14 | Outpatient (RCR) | payer MEDICARE, SELFPAY ==
[2022-10-21 00:34] VITALS: BMI 20.5
[2022-11-04 12:14] LABS: Mucous, Urine 0 SEEN /hpf (<or=2+)
[2022-11-04 15:31] LABS: Color, Urine Red (Yellow); Glucose, Dipstick Normal (Normal); Ketone-Dipstick Negative (Negative); Leukocyte Esterase-Dipstick 25 /ul (Negative); Nitrite-Dipstick Negative (Negative); Occult Blood-Urine 250 /ul (Negative); Protein-Dipstick 500 mg/dl (Negative); Urine Bilirubin Dipstick Negative (Negative); Urine Clarity Sl. Cloudy (Clear); Urine Urobilinogen Normal (Normal)
[2022-11-04 15:38] LABS: International Normalized Ratio 3.6; Prothrombin Time (Protime)PT. 36.3 SECONDS (11.7-14.9)
[2022-11-04 16:03] LABS: Red Blood Cells-Urine > 100 SEEN /hpf (0-5)
[2022-11-04 16:04] LABS: Squamous Epithelial Cells - UA 0-5 SEEN /hpf (5-10); White Blood Cells 5-10 SEEN /hpf (0-5)
[2022-11-04 16:05] LABS: Bacteria RARE /hpf (None Seen)
[2022-11-04 17:05] LABS: Vitamin B12 322 pg/mL (211-911)
[2022-11-17 15:02] LABS: Absolute Lymphocyte Count 1.01 X10^3/uL (0.83-4.51); Absolute Neutrophil Count 3.6 X10^3/uL (2.0-7.7); Basophil# 0.02 X10^3/uL; Basophil% 0.4 % (0-1); Eosinophil# 0.01 X10^3/uL; Eosinophils% 0.2 % (0-5); Hematocrit 28.7 % (37-47); Hemoglobin 9.3 g/dL (12.0-15.0); Lymphocyte # 1.01 X10^3/ul (0.83-4.51); Mean Corp Hgb Conc 32.4 g/dL (32-36); Mean Corpuscular Hgb 29.9 pg (27.0-32.0); Mean Corpuscular Volume 92.3 fL (81-99); Mean Platelet Vol. 10.4 fl (6.2-12.0); Monocyte# 0.43 X10^3/uL; Monocyte% 8.5 % (0-10); NRBC Flagged by Analyzer 0 % (0-5); Neutrophil # 3.56 X10^3/uL (2.7-7.7); Neutrophil % 70.3 % (47-70); Platelet Count 160 K/mm3 (150-450); RBC Distribution Width CV 15.4 % (11.6-14.6); RBC Distribution Width SD 51.8 fl (35.1-43.9); Red Blood Count 3.11 M/mm3 (4.2-5.4); White Blood Count 5.1 K/mm3 (4.4-11.0)
[2022-11-17 15:31] LABS: ALB/GLOB Ratio 0.6 RATIO (0.9-2.4); AST(SGOT) 32 U/L (15-37); Alanine Aminotransfer ALT/SGPT 13 U/L (13-56); Albumin, Serum 2.6 g/dL (3.2-5.0); Alkaline Phosphatase 157 U/L (45-117); Anion Gap 8 (5-15); BUN 35 mg/dL (7-18); BUN/Creat Ratio 12.2 RATIO (10-20); Chloride 110 mmol/L (98-107); Creatinine, Serum 2.86 mg/dL (0.55-1.02); EST Glomerular Filtration Rate 17 mL/min (>60); Est Glom Filt Rate - Afr Amer 21 mL/min (>60); Glucose 99 mg/dL (74-106); Potassium 3.2 mmol/L (3.5-5.1); Protein, Total 6.6 g/dL (6.4-8.2); Sodium Level 139 mmol/L (136-145)
[2022-11-17 15:33] LABS: International Normalized Ratio 2.3; Prothrombin Time (Protime)PT. 25.4 SECONDS (11.7-14.9)
== END 2022-11-19 23:59 ==
LOC: BIMLAB 14:14
PROVIDERS: PCP Family Medicine; Referring Provider Family Medicine; Visit Provider Family Medicine
DX: Z79.01 Long term (current) use of anticoagulants (principal); K92.2 Gastrointestinal hemorrhage, unspecified; N17.9 Acute kidney failure, unspecified
CPT/HCPCS: 36415; 80053; 81001; 82607; 85025; 85610

== ENCOUNTER 2023-02-14 12:12 | Outpatient (RCR) | payer MEDICARE, SELFPAY ==
[2022-11-20 00:42] VITALS: BMI 20.5
[2023-02-14 15:26] LABS: International Normalized Ratio 1.3; Prothrombin Time (Protime)PT. 16.4 SECONDS (11.7-14.9)
== END 2023-02-19 23:59 ==
LOC: BIMLAB 12:12
PROVIDERS: PCP Family Medicine; Referring Provider Family Medicine; Visit Provider Physician Assistant
DX: Z79.01 Long term (current) use of anticoagulants (principal)
CPT/HCPCS: 36415; 85610

== ENCOUNTER → 2023-03-14 | Outpatient (CLI) | payer OTHER, SELFPAY ==
[2023-03-14 16:32] LABS: Absolute Neutrophil Count 4.1 X10^3/uL (2.0-7.7); Basophil# 0.02 X10^3/uL; Basophil% 0.3 % (0-1); Eosinophil# 0.06 X10^3/uL; Eosinophils% 0.9 % (0-5); Hematocrit 35.1 % (37-47); Hemoglobin 11.2 g/dL (12.0-15.0); Lymphocyte % 26.2 % (19-41); Mean Corp Hgb Conc 31.9 g/dL (32-36); Mean Corpuscular Volume 100.3 fL (81-99); Mean Platelet Vol. 12.7 fl (6.2-12.0); Monocyte% 9.2 % (0-10); NRBC Flagged by Analyzer 0 % (0-5); Neutrophil # 4.05 X10^3/uL (2.7-7.7); Neutrophil % 62.5 % (47-70); Platelet Count 124 K/mm3 (150-450); RBC Distribution Width CV 14.1 % (11.6-14.6); RBC Distribution Width SD 50.9 fl (35.1-43.9); White Blood Count 6.5 K/mm3 (4.4-11.0)
[2023-03-14 16:49] LABS: International Normalized Ratio 1.9; Prothrombin Time (Protime)PT. 21.7 SECONDS (11.7-14.9)
== END | disposition home or self-care (01) ==
LOC: BIMLAB 15:05
PROVIDERS: PCP Family Medicine; Visit Provider Family Medicine
DX: C41.4 Malignant neoplasm of pelvic bones, sacrum and coccyx (principal); Z79.01 Long term (current) use of anticoagulants
CPT/HCPCS: 36415; 85025; 85610

== ENCOUNTER 2023-04-05 15:10 | Outpatient (RCR) | payer MEDICARE, SELFPAY ==
[2023-02-20 00:07] VITALS: BMI 20.5
[2023-03-28 15:10] LABS: International Normalized Ratio 1.7; Prothrombin Time (Protime)PT. 20.4 SECONDS (11.7-14.9)
[2023-04-05 17:14] LABS: International Normalized Ratio 2.2; Prothrombin Time (Protime)PT. 24.6 SECONDS (11.7-14.9)
== END 2023-04-20 23:59 ==
LOC: BIMLAB 15:10
PROVIDERS: PCP Family Medicine; Referring Provider Family Medicine; Visit Provider Physician Assistant
DX: Z79.01 Long term (current) use of anticoagulants (principal)
CPT/HCPCS: 36415; 85610

== ENCOUNTER → 2023-04-25 | Outpatient (CLI) | payer MEDICARE, SELFPAY ==
[2023-04-25 16:44] LABS: International Normalized Ratio 4.1
[2023-04-25 16:59] LABS: Prothrombin Time (Protime)PT. 39.5 SECONDS (11.7-14.9)
== END | disposition home or self-care (01) ==
LOC: BIMLAB 15:23
PROVIDERS: PCP Family Medicine; Visit Provider Family Medicine
DX: Z79.01 Long term (current) use of anticoagulants (principal)
CPT/HCPCS: 36415; 85610

== ENCOUNTER 2023-05-16 14:39 | Outpatient (RCR) | payer MEDICARE, SELFPAY ==
[2023-05-04 12:42] LABS: International Normalized Ratio 1.1; Prothrombin Time (Protime)PT. 14.4 SECONDS (11.7-14.9)
[2023-05-16 15:30] LABS: International Normalized Ratio 1.9; Prothrombin Time (Protime)PT. 21.7 SECONDS (11.7-14.9)
== END 2023-05-21 23:59 ==
LOC: BIMLAB 14:39
PROVIDERS: PCP Family Medicine; Visit Provider Family Medicine
DX: Z79.01 Long term (current) use of anticoagulants (principal); I48.20 Chronic atrial fibrillation, unspecified
CPT/HCPCS: 36415; 85610

== ENCOUNTER 2023-06-12 14:28 | Outpatient (RCR) | payer MEDICARE, SELFPAY ==
[2023-06-12 17:31] LABS: International Normalized Ratio 1.7; Prothrombin Time (Protime)PT. 20.1 SECONDS (11.7-14.9)
== END 2023-06-20 23:59 ==
LOC: BIMLAB 14:28
PROVIDERS: PCP Family Medicine; Visit Provider Family Medicine
DX: Z79.01 Long term (current) use of anticoagulants (principal)
CPT/HCPCS: 36415; 85610

== ENCOUNTER 2023-07-20 15:12 | Outpatient (RCR) | payer MEDICARE, SELFPAY ==
[2023-07-20 17:12] LABS: International Normalized Ratio 2.2; Prothrombin Time (Protime)PT. 24.1 SECONDS (11.7-14.9)
== END 2023-07-21 23:59 ==
LOC: BIMLAB 15:12
PROVIDERS: PCP Family Medicine; Visit Provider Family Medicine
DX: Z79.01 Long term (current) use of anticoagulants (principal)
CPT/HCPCS: 36415; 85610

== ENCOUNTER 2023-08-30 15:17 | Outpatient (RCR) | payer MEDICARE, SELFPAY ==
[2023-08-30 17:31] LABS: International Normalized Ratio 1.9; Prothrombin Time (Protime)PT. 21.9 SECONDS (11.7-14.9)
== END 2023-09-20 23:59 ==
LOC: BIMLAB 15:17
PROVIDERS: PCP Family Medicine; Visit Provider Family Medicine
DX: Z79.01 Long term (current) use of anticoagulants (principal)
CPT/HCPCS: 36415; 85610

== ENCOUNTER 2023-11-10 10:05 | Outpatient (RCR) | payer MEDICARE, SELFPAY ==
[2023-11-10 12:16] LABS: International Normalized Ratio 1.9; Prothrombin Time (Protime)PT. 21.8 SECONDS (11.7-14.9)
== END 2023-11-20 23:59 ==
LOC: BIMLAB 10:05
PROVIDERS: PCP Family Medicine; Visit Provider Family Medicine
DX: Z79.01 Long term (current) use of anticoagulants (principal)
CPT/HCPCS: 36415; 85610

== ENCOUNTER 2024-01-03 13:58 | Outpatient (RCR) | payer MEDICARE, SELFPAY ==
[2024-01-03 15:17] LABS: Absolute Lymphocyte Count 1.59 X10^3/uL (0.83-4.51); Absolute Neutrophil Count 6.1 X10^3/uL (2.0-7.7); Basophil# 0.02 X10^3/uL; Basophil% 0.2 % (0-1); Eosinophil# 0.09 X10^3/uL; Eosinophils% 1.1 % (0-5); Hematocrit 40.5 % (37-47); Hemoglobin 13.2 g/dL (12.0-15.0); Lymphocyte # 1.59 X10^3/ul (0.83-4.51); Lymphocyte % 18.9 % (19-41); Mean Corp Hgb Conc 32.6 g/dL (32-36); Mean Corpuscular Hgb 33.2 pg (27.0-32.0); Mean Platelet Vol. 12.3 fl (6.2-12.0); Monocyte% 7.1 % (0-10); NRBC Flagged by Analyzer 0 % (0-5); Neutrophil # 6.07 X10^3/uL (2.7-7.7); Neutrophil % 72.3 % (47-70); Platelet Count 161 K/mm3 (150-450); Red Blood Count 3.97 M/mm3 (4.2-5.4); White Blood Count 8.4 K/mm3 (4.4-11.0)
[2024-01-03 15:24] LABS: International Normalized Ratio 2.3; Prothrombin Time (Protime)PT. 25.3 SECONDS (11.7-14.9)
[2024-01-03 17:17] LABS: Anion Gap 6 (5-15); BUN 28 mg/dL (7-18); BUN/Creat Ratio 21.2 RATIO (10-20); Calcium,Total 9.7 mg/dL (8.5-10.1); Chloride 102 mmol/L (98-107); Creatinine, Serum 1.32 mg/dL (0.55-1.02); EST Glomerular Filtration Rate 41 mL/min (>60); Est Glom Filt Rate - Afr Amer 50 mL/min (>60); Glucose 149 mg/dL (74-106); Potassium 4.1 mmol/L (3.5-5.1); Sodium Level 136 mmol/L (136-145)
== END 2024-01-20 23:59 ==
LOC: BIMLAB 13:58
PROVIDERS: PCP Family Medicine; Referring Provider Family Medicine; Visit Provider Family Medicine
DX: I48.20 Chronic atrial fibrillation, unspecified; C96.9 Malignant neoplasm of lymphoid, hematopoietic and related tissue, unspecified; N19 Unspecified kidney failure
CPT/HCPCS: 36415; 80048; 85025; 85610

== ENCOUNTER 2024-02-21 14:07 | Emergency (ER) | payer MEDICARE, SELFPAY ==
[2024-02-21 14:08] VITALS: BP 148/78; PULSE 84; RESP 16; TEMP 36.2; O2SAT 92; BMI 20.8
[2024-02-21 14:11] VITALS: BP 148/78; PULSE 84; RESP 17; TEMP 36.2; O2SAT 93
--- NOTE | 2024-02-21 15:25 | ED.VIS.DYS ---
HPI History of Present Illness Chief Complaint: Cold Sx Narrative Narrative: 78-year-old female presents with 7 weeks of cough, nasal congestion, and chest congestion. She states she does not have any fevers. She has been sick for 7 weeks and started antibiotics from urgent care 2 to 3 weeks ago. She still has a few doses left. They were treating her for a sinus infection. She relates history that she has continued cough with nasal congestion as well as shortness of breath and dyspnea on exertion. No other exacerbating or alleviating factors. [facility] Medical History Cancer of kidney Skin tear of left lower leg without complication Atrial fibrillation Hematuria HTN (hypertension) Vitamin deficiency Acute cystitis Cancer of pelvic bone Home Medications ?Medication ?Instructions ?Recorded ?Last Taken ?Type acetaminophen 500 mg tablet 1,000 mg (2 x 500 mg) PO TID PRN 06/15/15 Unknown Rx PRN Pain #90 tabs pen needle, diabetic 29 gauge x #100 ea 11/14/22 Unknown Rx 1/2 (Pen Needle) furosemide 40 mg tablet 40 mg PO DAILY #30 tabs 02/01/23 Unknown Rx warfarin 7.5 mg tablet 7.5 mg PO DAILY #30 tabs 02/01/23 Unknown Rx warfarin 3 mg tablet 3 mg .Route .COMPLEX BLOOD THINNER 03/14/23 Unknown Rx #120 tabs diltiazem HCl 180 mg 180 mg PO DAILY HEART 06/27/23 Unknown History capsule,extended release 24 hr warfarin 5 mg tablet 5 mg .Route DAILY BLOOD THINNER 11/07/23 Unknown Rx #60 tabs carvedilol 12.5 mg tablet 12.5 mg PO BID #180 tabs 01/03/24 Unknown Rx ketorolac 0.5 % eye drops drp ophthalmic (eye) 01/03/24 Unknown History ofloxacin 0.3 % eye drops drp ophthalmic (eye) 01/03/24 Unknown History clindamycin HCl 300 mg capsule 300 mg PO TID #30 caps 02/12/24 Unknown Rx Allergy/AdvReac Type Severity Reaction Status Date / Time amoxicillin Allergy Mild Rash Verified 02/21/24 14:11 benazepril Allergy Mild Rash Verified 02/21/24 14:11 Sulfa (Sulfonamide Allergy Rash Verified 02/21/24 14:11 Antibiotics) Family History Father Lung cancer Mother Heart disease Surgical History Hx of cataract surgery History of total right hip replacement History of hysterectomy History of artificial heart valve Social History Smoking Status: Current every day smoker tobacco type: cigarettes alcohol intake: current alcohol intake frequency: holidays/special occasions only substance use type: does not use what type of physical activity do you participate in: none ROS ROS ED ROS Narrative Constitutional: No fever, no chills. HEENT: No sore throat. No neck pain. No loss of vision. Positive nasal congestion and rhinorrhea. Cardiovascular: No chest pain. No palpitations. No pedal edema. Respiratory: Positive cough, positive dyspnea on exertion and shortness of breath. Symptoms persist x 7 weeks. Abdominal: No abdominal pain. No nausea. No vomiting. Genitourinary: No dysuria. No hematuria. Musculoskeletal: No myalgias. No arthralgias. Neurologic: No headaches. No dizziness. No lightheadedness. Skin: No rash. No change in color. Psychiatric: No depression. No anxiety. EXAM Physical Exam Narrative Exam Narrative: Afebrile. Vital signs noted. Nontoxic-appearing. Positive nasal congestion. Neck soft and supple without meningismus. Cardiovascular examination reveals a regular rate and rhythm. Prolonged expiratory phase on respiratory examination with decreased breath sounds bilateral bases well. No wheezing or stridor. No pedal edema. Const Vital Signs: 02/21/24 14:08 02/21/24 14:11 02/21/24 14:21 Temperature 97.1 F L 97.1 F L Temperature Source Temporal Temporal Pulse Rate 84 84 Respiratory Rate 16 17 Respiratory Effort Normal Non-Labored Respiratory Pattern Normal Blood Pressure 148/78 H 148/78 H Blood Pressure Mean 101 101 Pulse Ox 92 93 Oxygen Delivery Method Room Air Room Air 02/21/24 16:37 Temperature Temperature Source Pulse Rate 67 Respiratory Rate 16 Respiratory Effort Respiratory Pattern Blood Pressure 125/75 H Blood Pressure Mean 91 Pulse Ox 98 Oxygen Delivery Method Room Air MDM MDM MDM Narrative Medical decision making narrative: Differential diagnosis includes bronchitis versus viral syndrome versus pneumonia. I have low suspicion for CHF because this is not an her history. Her pulse ox is 92 to 93% on room air. She will be given 4 puffs from an albuterol inhaler. The remainder dispensed to her. Chest x-ray and 2 views will be obtained to rule out pneumonia. She was also swabbed for COVID and influenza and RSV. On my independent interpretation of her chest x-ray, I see no evidence of pneumonia or consolidation, or pneumothorax. I reviewed the radiology report which confirms my independent interpretation. Regardless she is already on a course of antibiotics. She was given an albuterol inhaler and upon repeat examination states she feels mildly improved. I reviewed her respiratory swab and she is positive for respiratory syncytial virus. At this point in time, I do not feel she is requiring admission. I feel she can be discharged with symptomatic treatment and the albuterol inhaler use. Return instructions to the emergency department were reviewed. Disposition is discharged home in stable condition. History & Record Review Discussion w/independent historian: Patient Radiography Chest X-Ray - ED: Read by ED Physician and Read by Radiologist Diagnostic Testing: Clinical Impression(s) from Imaging Studies Chest X-Ray 02/21/24 15:45 IMPRESSION: Mild cardiomegaly. Electronically Signed: Luther Mendosa DO at 16:36 EST Reading Location ID and State: [facility] / [place] Tel [phone], Service support , Discharge Plan Triage Chief Complaint: Cold Sx ED Provider: Jeanmarie Prather Dx/Rx/DC Orders Clinical Impression: RSV bronchitis, Viral syndrome Instructions: RSV (Respiratory Syncytial Virus), ED Bronchitis with Wheezing (Adult), ED Viral Syndrome (Adult) Prescriptions: No Action warfarin 3 mg tablet 3 mg .ROUTE .COMPLEX Qty: 120 1RF Rx Instructions: take 1/2 tablet with the 5 mg tablet daily diltiazem HCl 180 mg capsule,extended release 24hr 180 mg PO DAILY ofloxacin 0.3 % drops ophthalmic (eye) Patient Comments: [NO ORIGINAL SIG] ketorolac 0.5 % drops ophthalmic (eye) carvedilol 12.5 mg tablet 12.5 mg PO BID Qty: 180 3RF Rx Instructions: must administer with a meal/food clindamycin HCl 300 mg capsule 300 mg PO TID Qty: 30 0RF acetaminophen 500 MG tablet 1,000 mg PO TID PRN PRN (Reason: Pain) Qty: 90 0RF Patient Comments: Pain as needed (DME) pen needle, diabetic [Pen Needle] 29 gauge x 1/2 needle See Rx Instructions .Route Qty: 100 0RF Rx Instructions: As directed furosemide 40 mg tablet 40 mg PO DAILY Qty: 30 0RF warfarin 7.5 mg tablet 7.5 mg PO DAILY Qty: 30 0RF warfarin 5 mg tablet 5 mg .ROUTE DAILY Qty: 60 2RF Rx Instructions: 5 mg daily; take with 1/2 of a 3 mg daily Primary Care Provider: Leon Mandel Referrals: Leon Mandel, DO [Primary Care Provider] - 3-5 Days if not improving Activity Restrictions/Additional Instructions: Use the albuterol inhaler 1 to 2 puffs inhaled every 4-6 hours as needed for shortness of breath. Return with sustained high fever, new or worsening symptoms. Print Language: Indonesian Disposition Disposition: Home, Self Care
[2024-02-21] MEDS: Albuterol Sulfate 8 gm Inhaler (60 puffs) 4 PUFF INHALATION (15:31)
--- NOTE | 2024-02-21 15:45 | RAD_ITS ---
INDICATION: cough EXAMINATION/TECHNIQUE: X-RAY - XR Chest 2 Views COMPARISON: January 30, 2018 FINDINGS: LINES/DEVICES: Stable sternotomy wires. LUNGS: No consolidation, edema or effusion. No pneumothorax. MEDIASTINUM AND CARDIOVASCULAR STRUCTURES: Cardiac silhouette is mildly enlarged. Central airways and mediastinal contour are unremarkable. BONES AND SOFT TISSUES: Unremarkable. RAD/Chest PA and Lateral IMPRESSION: Mild cardiomegaly. Electronically Signed: Luther Mendosa DO at 16:36 EST ,
[2024-02-21 16:37] VITALS: BP 125/75; PULSE 67; RESP 16; O2SAT 98
== END 2024-02-21 17:10 | disposition home or self-care (01) ==
PROVIDERS: Emergency Provider Emergency Medicine; PCP Family Medicine; Referring Provider Emergency Medicine; Visit Provider Emergency Medicine
DX: J20.5 Acute bronchitis due to respiratory syncytial virus (principal); B34.9 Viral infection, unspecified; J32.9 Chronic sinusitis, unspecified; I10 Essential (primary) hypertension; F17.210 Nicotine dependence, cigarettes, uncomplicated
CPT/HCPCS: 71046; 87631; 99282

== ENCOUNTER 2024-03-06 14:48 | Outpatient (RCR) | payer MEDICARE, SELFPAY ==
[2024-03-06 16:56] LABS: International Normalized Ratio 2.7; Prothrombin Time (Protime)PT. 28.9 SECONDS (11.7-14.9)
== END 2024-03-22 23:59 ==
LOC: BIMLAB 14:48
PROVIDERS: PCP Family Medicine; Referring Provider Family Medicine; Visit Provider Family Medicine
DX: Z79.01 Long term (current) use of anticoagulants (principal)
CPT/HCPCS: 36415; 85610

== ENCOUNTER 2024-03-31 16:06 | Observation (INO) | payer MEDICARE, SELFPAY ==
[2024-03-31] VITALS (8 sets, daily range): BP systolic 127–151; BP diastolic 67–116; PULSE 74–97; RESP 15–18; TEMP 36.4–36.8; O2SAT 96–100; BMI 19.3; BMI 19.7
--- NOTE | 2024-03-31 18:08 | EKG12_ITS ---
Test Reason : Blood Pressure : */* mmHG Vent. Rate : 72 BPM Atrial Rate : * BPM P-R Int : * ms QRS Dur : 74 ms QT Int : 412 ms P-R-T Axes : * 15 49 degrees QTcB Int : 451 ms Poor data quality, interpretation may be adversely affected Atrial fibrillation Minimal voltage criteria for LVH, may be normal variant ( Sokolow-Horne ) Nonspecific ST abnormality Abnormal ECG Confirmed by Ko Garcia ([id number]), production editor OLEG PADILLA ([id number]) on 04/01/2024 11:11:31 AM Referred By: Confirmed By: Ko Garcia
--- NOTE | 2024-03-31 18:08 | RAD_ITS ---
PROCEDURE: CHEST PA AND LATERAL REASON FOR EXAM: Shortness of breath TECHNIQUE: Two views of the chest COMPARISON: 02/21/2024 FINDINGS: There is minimal streaky opacity left infrahilar region. No pleural effusion or pneumothorax. The cardiac silhouette is enlarged. Atherosclerotic calcifications are present at the aortic arch thoracic aorta appears tortuous. No acute osseous or soft tissue abnormality. Coils are present in the left upper quadrant of the abdomen. RAD/Chest PA and Lateral IMPRESSION: Minimal streaky opacity in the left infrahilar region, possibly due to atelecta sis or early infiltrate. Reading Location: [facility]
[2024-03-31] MEDS: Ipratropium/Albuterol Sulfate 3 ML AMPUL.NEB INHALATION (18:14)
[2024-03-31] MEDS: Albuterol 2.5 MG/3 ML VIAL.NEB. INHALATION ×2 (18:15)
[2024-03-31 18:19] LABS: Absolute Lymphocyte Count 1.55 X10^3/uL (0.83-4.51); Eosinophil# 0.03 X10^3/uL; Eosinophils% 0.6 % (0-5); Hematocrit 39.5 % (37-47); Hemoglobin 12.8 g/dL (12.0-15.0); Lymphocyte # 1.55 X10^3/ul (0.83-4.51); Mean Corp Hgb Conc 32.4 g/dL (32-36); Mean Corpuscular Hgb 32.4 pg (27.0-32.0); Mean Platelet Vol. 12.6 fl (6.2-12.0); Monocyte# 0.53 X10^3/uL; Monocyte% 10.3 % (0-10); NRBC Flagged by Analyzer 0 % (0-5); Neutrophil # 3.02 X10^3/uL (2.7-7.7); Neutrophil % 58.5 % (47-70); Platelet Count 186 K/mm3 (150-450); RBC Distribution Width CV 13.3 % (11.6-14.6); RBC Distribution Width SD 49.5 fl (35.1-43.9); Red Blood Count 3.95 M/mm3 (4.2-5.4); White Blood Count 5.2 K/mm3 (4.4-11.0)
[2024-03-31 18:32] LABS: Prothrombin Time (Protime)PT. 53.1 SECONDS (11.7-14.9)
--- NOTE | 2024-03-31 18:32 | EDS_ITS ---
HPI <EMMA Whiteside - Last Filed: 03/31/24 21:15> History of Present Illness Chief Complaint: Weakness Narrative Narrative: Patient presenting today with generalized weakness and shortness of breath with exertion. She reports that she has had shortness of breath with exertion and a productive cough over the past month. The cough has been worse over the last several days, she reports coughing up yellow-colored sputum. She did go to urgent care about 4 days ago and was diagnosed with influenza A. She reports that they did start her on 2 different antibiotics but she only took them for a few days and then stopped. They did not obtain a chest x-ray during her visit. She reports that she has been so weak over the last few days that she is having a hard time even taking her medications and walking around her house. She reports a history of atrial fibrillation on Coumadin and renal cancer. She follows with Dr. Galindo and does get chemotherapy shots. She denies fevers, chills, chest pain, abdominal pain, nausea, and vomiting. [facility], [facility] <EMMA Whiteside - Last Filed: 03/31/24 21:15> [facility] Medical History CKD (chronic kidney disease), stage III Tobacco dependence PAF (paroxysmal atrial fibrillation) Valvular heart disease Cancer of kidney Hematuria HTN (hypertension) Vitamin deficiency Cancer of pelvic bone Home Medications ?Medication ?Instructions ?Recorded ?Last Taken ?Type acetaminophen 500 mg tablet 1,000 mg (2 x 500 mg) PO T ID PRN 06/15/15 Unknown Rx PRN Pain #90 tabs pen needle, diabetic 29 gauge x #100 ea 11/14/22 Unkno wn Rx 1/2 (Pen Needle) warfarin 7.5 mg tablet 7.5 mg PO DAILY #30 tabs Unknown Rx warfarin 3 mg tablet 3 mg .Route .COMPLEX BLOOD T HINNER 03/14/23 Unknown Rx #120 tabs warfarin 5 mg tablet 5 mg .Route DAILY BLOOD THIN NER 11/07/23 Unknown Rx #60 tabs carvedilol 12.5 mg tablet 12.5 mg PO BID #180 tabs Unknown Rx albuterol sulfate 90 mcg/actuation 2 puff inhalation Q 6H PRN 03/27/24 Unknown Rx aerosol inhaler (Ventolin HFA) shortness of breath or wheezing #8.5 grams acyclovir 400 mg tablet 400 mg PO Q12.TCU 03/31/24 U nknown History furosemide 40 mg tablet 20 mg PO Q12H 03/31/24 Unkno wn History Allergy/AdvReac Type Severity Reaction Status Date / Time amoxicillin Allergy Mild Rash Verified 03/31/24 16:08 benazepril Allergy Mild Rash Verified 03/31/24 16:08 Sulfa (Sulfonamide Allergy Rash Verified 03/31/24 16:08 Antibiotics) Family History Father Lung cancer Mother Heart disease Surgical History Hx of cataract surgery History of total right hip replacement History of hysterectomy History of artificial heart valve Social History household members: spouse Smoking Status: Light Smoker (<10/day) alcohol intake: current alcohol intake frequency: holidays/special occasions only substance use type: does not use what type of physical activity do you participate in: none ROS <EMMA Whiteside - Last Filed: 03/31/24 21:15> ROS ED Constitutional Constitutional ED: Denies chills or fever(s) Cardiovascular Cardiovascular: Denies chest pain Respiratory/Chest Respiratory/Chest: Reports cough, dyspnea on exertion and wheezing Gastrointestinal Gastrointestinal: Denies abdominal pain, nausea or vomiting Genitourinary Genitourinary ED: Denies dysuria, hematuria or urinary frequency Musculoskeletal Musculoskeletal: Denies arthralgias or myalgias Integumentary Denies rash Neurologic Neurologic: Reports weakness EXAM <EMMA Whiteside - Last Filed: 03/31/24 21:15> Physical Exam Const Vital Signs: 03/31/24 16:08 03/31/24 17:18 03/31/24 18:03 Temperature 97.5 F L 97.5 F L 97.5 F L Temperature Source Oral Oral Oral Pulse Rate 74 82 82 Respiratory Rate 15 18 18 Respiratory Pattern Blood Pressure 136/67 H 146/90 H 149/116 H Blood Pressure Mean 90 108 127 Pulse Ox 100 100 97 Oxygen Delivery Method Room Air Room Air Room Air 03/31/24 18:14 03/31/24 18:16 03/31/24 19:00 Temperature 97.5 F L Temperature Source Oral Pulse Rate 76 97 Respiratory Rate 18 18 Respiratory Pattern Normal Blood Pressure 151/87 H Blood Pressure Mean 108 Pulse Ox 99 Oxygen Delivery Method Room Air 03/31/24 20:00 03/31/24 20:00 03/31/24 20:36 Temperature 97.8 F 97.8 F 97.8 F Temperature Source Oral Oral Pulse Rate 85 86 84 Respiratory Rate 17 16 17 Respiratory Pattern Blood Pressure 142/88 H 142/88 H 142/88 H Blood Pressure Mean 106 106 106 Pulse Ox 96 96 96 Oxygen Delivery Method Room Air Room Air Positive well nourished, well developed and no apparent distress General Appearance ED: well developed HEENT Reports normocephalic and head/scalp atraumatic Mouth ED: Yes moist mucous membranes normal Eyes PERRL and EOMs intact bilaterally Neck full ROM and supple Chest Wall inspection of chest normal Resp normal respiratory effort Resp Narrative: Expiratory wheezes and coarse breath sounds to the bilateral lung frank Cardio regular rate and regular rhythm GI soft to palpation, non-tender, non-distended and no masses Back/Spine normal ROM and normal to inspection Extremity normal to inspection and full ROM Neuro oriented x3, CN's II-XII intact bilaterally, moves all extremities, no focal motor deficits and no sensory deficits noted Sensorium / Orientation: awake and alert Psych mental status grossly normal and thought process normal Skin no rashes or lesions noted and no wounds <Dr. Harsha Perrin MD - Last Filed: 03/31/24 20:18> Physical Exam Const Vital Signs: 03/31/24 16:08 03/31/24 17:18 03/31/24 18:03 Temperature 97.5 F L 97.5 F L 97.5 F L Temperature Source Oral Oral Oral Pulse Rate 74 82 82 Respiratory Rate 15 18 18 Respiratory Pattern Blood Pressure 136/67 H 146/90 H 149/116 H Blood Pressure Mean 90 108 127 Pulse Ox 100 100 97 Oxygen Delivery Method Room Air Room Air Room Air 03/31/24 18:14 03/31/24 18:16 03/31/24 19:00 Temperature 97.5 F L Temperature Source Oral Pulse Rate 76 97 Respiratory Rate 18 18 Respiratory Pattern Normal Blood Pressure 151/87 H Blood Pressure Mean 108 Pulse Ox 99 Oxygen Delivery Method Room Air 03/31/24 20:00 03/31/24 20:00 03/31/24 20:36 Temperature 97.8 F 97.8 F 97.8 F Temperature Source Oral Oral Pulse Rate 85 86 84 Respiratory Rate 17 16 17 Respiratory Pattern Blood Pressure 142/88 H 142/88 H 142/88 H Blood Pressure Mean 106 106 106 Pulse Ox 96 96 96 Oxygen Delivery Method Room Air Room Air [facility] <EMMA Whiteside - Last Filed: 03/31/24 21:15> [facility] Narrative Medical decision making narrative: Patient presenting due to shortness of breath with exertion she has had over the past month that has been worse over the last several days, she was recently diagnosed with influenza A about 4 days ago at urgent care and was started on antibiotics although no chest x-ray was obtained. She is on Coumadin, low ramon spicion for PE. Patient reports that she is so weak at home that she is having a hard time taking care of herself. Labs were obtained, her CBC is unremarkable, kidney function appears near baseline. She has a supra therapeutic INR. UA negative for UTI. Chest x-ray negative for pneumonia. She was given albuterol and DuoNeb breathing treatments, on reexamination she reports that she feels too weak to go home. She is scared that she is going to fall because of her weakness. Given this, I will speak with hospitalist for admission. Patient will be admitted in stable condition. I have personally performed a face to face assessment of the patient and have reviewed the PERLA Note. I performed a substantive portion of the visit including all aspects of the following. My solo findings include: History is 78-year-old female recent diagnosis several days ago with influenza A. Multiple family members at home with same. Just feels generally weak. Trouble ambulating. Exam is [78-year-old female sitting upright in bed. Vital signs are stable. She is afebrile. Pulse ox 100% on room air no signs hypoxia. No distress. H EENT exam pupils round reactive light. Mildly dry mucous membranes. Neck nontender no lymphadenopathy. No meningismus. Lungs coarse breath sounds. No rales rhonchi or wheezing. Heart A-fib rate in the 80s. Mechanical heart valve click with systolic ejection murmur 4/6. Abdomen soft nontender. Chest wall nontender. Back nontender. Moving all 4 extremities. Nontender no edema. Neurologically she is awake and alert no focal motor deficits.] Medical Decision Making [78-year-old female has influenza A. Generalized weakness. Screening labs.] Other additions or changes: [None] Lab Data Attestation: I reviewed the patient's lab results. Labs: Laboratory Results - last 24 hr 03/31/24 03/31/24 17:15 18:49 WBC 5.2 RBC 3.95 L Hgb 12.8 Hct 39.5 MCV 100.0 H MCH 32.4 H MCHC 32.4 RDW Std Deviation 49.5 H RDW Coeff of Katie 13.3 Plt Count 186 MPV 12.6 H Immature Gran % (Auto) 0.600 Neut % (Auto) 58.5 Lymph % (Auto) 30.0 Trinity % (Auto) 10.3 H Eos % (Auto) 0.6 Baso % (Auto) 0.0 Absolute Neuts (auto) 3.0 Absolute Lymphs (auto) 1.55 Nucleated RBC % 0 PT 53.1 H INR 5.7 H* Sodium 140 Potassium 3.9 Chloride 106 Carbon Dioxide 25.0 Anion Gap 9 BUN 26 H Creatinine 1.31 H Estim Creat Clear Calc 26.76 Est GFR (MDRD) Af Amer 51 L Est GFR (MDRD) Non-Af 42 L BUN/Creatinine Ratio 19.8 Glucose 102 Calcium 9.0 Troponin I High Sens 32 Urine Color Yellow Urine Clarity Clear Urine pH 6.0 Ur Specific Hannacroix 1.020 Urine Protein 30 H Urine Glucose (UA) Normal Urine Ketones Negative Urine Occult Blood 25 H Urine Nitrite Negative Urine Bilirubin Negative Urine Urobilinogen Normal Ur Leukocyte Esterase 500 H Urine RBC 0-5 SEEN Urine WBC 25-50 SEEN Ur Squamous Epith Cells 5-10 SEEN Urine Bacteria 1+ Urine Mucus 0 SEEN Radiography Diagnostic Testing: Clinical Impression(s) from Imaging Studies Chest X-Ray 03/31/24 18:08 IMPRESSION: Minimal streaky opacity in the left infrahilar region, possibly due to atelectasis or early infiltrate. Reading Location: [facility] EKG Initial EKG: Comments: A-fib. Controlled rate. No acute signs of TX or ischemia. EKG interpreted by attending ED physician. <Dr. Harsha Perrin MD - Last Filed: 03/31/24 20:18> MDM MDM Narrative Medical decision making narrative: Patient presenting due to shortness of breath with exertion she has had over the past month that has been worse over the last several days, she was recently diagnosed with influenza A about 4 days ago at urgent care and was started on antibiotics although no chest x-ray was obtained. She is on Coumadin, low suspicion for PE. Patient reports that she is so weak at home that she is having a hard time taking care of herself. Labs were obtained, her CBC is unremarkable, kidney function appears near baseline. She has a supra therapeutic INR. UA negative for UTI. Chest x-ray negative for pneumonia. She was given albuterol and DuoNeb breathing treatments, on reexamination she reports that she feels too weak to go home. She is scared that she is going to fall because of her weakness. Given this, I will speak with hospitalist for admission. I have personally performed a face to face assessment of the patient and have reviewed the PERLA Note. I performed a substantive portion of the visit including all aspects of the following. My solo findings include: History is 78-year-old female recent diagnosis several days ago with influenza A. Multiple family members at home with same. Just feels generally weak. Trouble ambulating. Exam is [78-year-old female sitting upright in bed. Vital signs are stable. She is afebrile. Pulse ox 100% on room air no signs hypoxia. No distress. H EENT exam pupils round reactive light. Mildly dry mucous membranes. Neck nontender no lymphadenopathy. No meningismus. Lungs coarse breath sounds. No rales rhonchi or wheezing. Heart A-fib rate in the 80s. Mechanical heart valve click with systolic ejection murmur 4/6. Abdomen soft nontender. Chest wall nontender. Back nontender. Moving all 4 extremities. Nontender no edema. Neurologically she is awake and alert no focal motor deficits.] Medical Decision Making [78-year-old female has influenza A. Generalized weakness. Screening labs.] Other additions or changes: [None] Lab Data Attestation: I reviewed the patient's lab results. Lab results narrative: CBC shows a white count of 5 H&H of 12.8 and 39. Platelets 186. PT/INR of 53 and 5.7. She is on Coumadin. Electrolytes show a gap at 9. BUN of 26 creatinine 1.31. Glucose 102. UA contaminated 5 epithelial cells. 25-50 white cells 1+ bacteria. Chest x-ray chronic changes no acute process. EKG A-fib. Labs: Laboratory Results - last 24 hr 03/31/24 03/31/24 17:15 18:49 WBC 5.2 RBC 3.95 L Hgb 12.8 Hct 39.5 MCV 100.0 H MCH 32.4 H MCHC 32.4 RDW Std Deviation 49.5 H RDW Coeff of Katie 13.3 Plt Count 186 MPV 12.6 H Immature Gran % (Auto) 0.600 Neut % (Auto) 58.5 Lymph % (Auto) 30.0 Trinity % (Auto) 10.3 H Eos % (Auto) 0.6 Baso % (Auto) 0.0 Absolute Neuts (auto) 3.0 Absolute Lymphs (auto) 1.55 Nucleated RBC % 0 PT 53.1 H INR 5.7 H* Sodium 140 Potassium 3.9 Chloride 106 Carbon Dioxide 25.0 Anion Gap 9 BUN 26 H Creatinine 1.31 H Estim Creat Clear Calc 26.76 Est GFR (MDRD) Af Amer 51 L Est GFR (MDRD) Non-Af 42 L BUN/Creatinine Ratio 19.8 Glucose 102 Calcium 9.0 Troponin I High Sens 32 Urine Color Yellow Urine Clarity Clear Urine pH 6.0 Ur Specific Hannacroix 1.020 Urine Protein 30 H Urine Glucose (UA) Normal Urine Ketones Negative Urine Occult Blood 25 H Urine Nitrite Negative Urine Bilirubin Negative Urine Urobilinogen Normal Ur Leukocyte Esterase 500 H Urine RBC 0-5 SEEN Urine WBC 25-50 SEEN Ur Squamous Epith Cells 5-10 SEEN Urine Bacteria 1+ Urine Mucus 0 SEEN Radiography Diagnostic Testing: Clinical Impression(s) from Imaging Studies Chest X-Ray 03/31/24 18:08 IMPRESSION: Minimal streaky opacity in the left infrahilar region, possibly due to atelectasis or early infiltrate. Reading Location: [facility] Chest x-ray, 2 views, AP and lateral, interpreted by myself and radiologist. Shows cardiomegaly. Prior sternotomy. No pneumonia. No effusions. No failure. Chronic changes. Rhythm Strip Rhythm Strip: A-fib Ectopy: None EKG Initial EKG: Interpretation: Atrial Fibrillation Comments: A-fib. Controlled rate. No acute signs of TX or ischemia. Discharge Plan Dx/Rx/DC Orders Clinical Impression: Generalized weakness, Chronic anticoagulation, Influenza A, Hx of prosthetic heart valve, Acute renal insufficiency, A-fib Disposition Disposition: Acute Care Hospital [facility]
[2024-03-31 18:38] LABS: International Normalized Ratio 5.7
[2024-03-31 18:58] LABS: Anion Gap 9 (5-15); BUN 26 mg/dL (7-18); BUN/Creat Ratio 19.8 RATIO (10-20); Chloride 106 mmol/L (98-107); Creatinine, Serum 1.31 mg/dL (0.55-1.02); EST Glomerular Filtration Rate 42 mL/min (>60); Est Glom Filt Rate - Afr Amer 51 mL/min (>60); Estimated Creatinine Clearance 26.76 ml/min; Glucose 102 mg/dL (74-106); Potassium 3.9 mmol/L (3.5-5.1); Sodium Level 140 mmol/L (136-145); Troponin-I HS 32 pg/mL (3.0-54.0)
[2024-03-31 19:02] LABS: Mucous, Urine 0 SEEN /hpf (<or=2+)
[2024-03-31 19:04] LABS: Color, Urine Yellow (Yellow); Glucose, Dipstick Normal (Normal); Ketone-Dipstick Negative (Negative); Leukocyte Esterase-Dipstick 500 /ul (Negative); Nitrite-Dipstick Negative (Negative); Occult Blood-Urine 25 /ul (Negative); Protein-Dipstick 30 mg/dl (Negative); Urine Bilirubin Dipstick Negative (Negative); Urine Clarity Clear (Clear); Urine Urobilinogen Normal (Normal)
[2024-03-31 19:24] LABS: White Blood Cells 25-50 SEEN /hpf (0-5)
[2024-03-31 19:25] LABS: Bacteria 1+ /hpf (None Seen); Red Blood Cells-Urine 0-5 SEEN /hpf (0-5); Squamous Epithelial Cells - UA 5-10 SEEN /hpf (5-10)
--- NOTE | 2024-03-31 20:30 | HP.PCM.HOS_ITS ---
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 Galindo on outpatient chemotherapy injection who presents to the [facility] ED on 03/31/2024 with history of progressive fatigue, weakness, malaise, dyspnea worse with exertion, congestion, body aches as well as mildly productive cough which she is notes having had over the last several weeks however it has been more pronounced over the last several days with productive sputum noted to be yellow in color with urgent care evaluation 4 days prior diagnosed at that time with influenza A in addition to suspected superimposed bacterial pneumonia started on antibiotic but given her debility and inability to even function prompted ED evaluation to be cautious. She denies any recent fevers or chills. She notes she has not had an appetite and not eaten for the last over 24 hours. She denies any dysuria but states that she has not been urinating much she has not been taking much. She notes all her family members have influenza A also. She denies any recent fever, chills, chest pain, nausea, emesis, diarrhea or abdominal pain. Workup in the ED included T97.5, heart 74, BP 136/67, respiratory rate 15, 100% on room air with most recent repeat vitals T97.5, heart rate 97, BP 131/87, respiratory rate 18, 99% room air, CBC with WC 5.2, human 12.8, MCV 100, platelet 186 without marked shift, coags with INR 5.7, PT 53.1, BMP with BUN/Lamar 26/1.31, GFR 42 otherwise not marked appearing, troponin 32, urinalysis with specific cavity mildly elevated 1.020, protein 30, occult blood 25, negative nitrite, leukocyte esterase with 500 with urine WBCs 25-50 with 1+ urine bacteria, urine culture pending per ED, chest x-ray w/ minimal streaky opacity left infrahilar region possibly atelectasis or early infiltrate, rapid SARS COVID/influenza/RSV PCR with positive RSV. In the ED patient ministered DuoNeb therapy. [facility] Medical History CKD (chronic kidney disease), stage III Tobacco dependence PAF (paroxysmal atrial fibrillation) Valvular heart disease Cancer of kidney Hematuria HTN (hypertension) Vitamin deficiency Cancer of pelvic bone Home Medications ?Medication ?Instructions ?Recorded ?Last Taken ?Type acetaminophen 500 mg tablet 1,000 mg (2 x 500 mg) PO T ID PRN 06/15/15 Unknown Rx PRN Pain #90 tabs pen needle, diabetic 29 gauge x #100 ea 11/14/22 Unkno wn Rx 1/2 (Pen Needle) warfarin 7.5 mg tablet 7.5 mg PO DAILY #30 tabs Unknown Rx warfarin 3 mg tablet 3 mg .Route .COMPLEX BLOOD T HINNER 03/14/23 Unknown Rx #120 tabs warfarin 5 mg tablet 5 mg .Route DAILY BLOOD THIN NER 11/07/23 Unknown Rx #60 tabs carvedilol 12.5 mg tablet 12.5 mg PO BID #180 tabs Unknown Rx albuterol sulfate 90 mcg/actuation 2 puff inhalation Q 6H PRN 03/27/24 Unknown Rx aerosol inhaler (Ventolin HFA) shortness of breath or wheezing #8.5 grams acyclovir 400 mg tablet 400 mg PO Q12.TCU 03/31/24 U nknown History furosemide 40 mg tablet 20 mg PO Q12H 03/31/24 Unkno wn History Allergy/AdvReac Type Severity Reaction Status Date / Time amoxicillin Allergy Mild Rash Verified 03/31/24 16:08 benazepril Allergy Mild Rash Verified 03/31/24 16:08 Sulfa (Sulfonamide Allergy Rash Verified 03/31/24 16:08 Antibiotics) Family History Father Lung cancer Mother Heart disease Surgical History Hx of cataract surgery History of total right hip replacement History of hysterectomy History of artificial heart valve Social History household members: spouse Smoking Status: Light Smoker (<10/day) alcohol intake: current alcohol intake frequency: holidays/special occasions only substance use type: does not use what type of physical activity do you participate in: none ROS ROS Narrative Admission Review of Systems: CONSTITUTIONAL: No weight loss, fever, chills, + weakness or fatigue. HEENT: + congestion, rhinorrhea, significant postnasal drip, sneezing. Eyes: No visual loss, blurred vision, double vision or yellow sclerae. Ears, Nose, Throat: No hearing loss. SKIN: No rash or itching, lesions, wounds. CARDIOVASCULAR: No chest pain, chest pressure or chest discomfort, palpitations, edema, orthopnea, syncopal events. RESPIRATORY: + shortness of breath, cough with occasional productive sputum, occasional wheezing. No hemoptysis. GASTROINTESTINAL: + anorexia. No nausea, vomiting, diarrhea, abdominal pain, melena, BRBPR. GENITOURINARY: + Decreased urine output. No dysuria, frequency, urgency or retention. NEUROLOGICAL: No headache, dizziness, syncope, paralysis, ataxia, numbness or tingling in the extremities, focal weakness, change in bowel or bladder control, seizure. MUSCULOSKELETAL: + muscle, back pain, joint pain or stiffness. HEMATOLOGIC: + History of anemia, easy bleeding/bruising. LYMPHATICS: No enlarged nodes. No history of splenectomy. PSYCHIATRIC: No history of depression or anxiety. ENDOCRINOLOGIC: No reports of sweating, cold or heat intolerance. No polyuria or polydipsia. ALLERGIES: No history of asthma, hives, eczema or rhinitis. Vital Signs Vital Signs Vital Signs: 03/31/24 16:08 03/31/24 17:18 03/31/24 18:03 Temperature 97.5 F L 97.5 F L 97.5 F L Temperature Source Oral Oral Oral Pulse Rate 74 82 82 Respiratory Rate 15 18 18 Respiratory Pattern Blood Pressure 136/67 H 146/90 H 149/116 H Blood Pressure Mean 90 108 127 Pulse Ox 100 100 97 Oxygen Delivery Method Room Air Room Air Room Air 03/31/24 18:14 03/31/24 18:16 03/31/24 19:00 Temperature 97.5 F L Temperature Source Oral Pulse Rate 76 97 Respiratory Rate 18 18 Respiratory Pattern Normal Blood Pressure 151/87 H Blood Pressure Mean 108 Pulse Ox 99 Oxygen Delivery Method Room Air Weight Weight: 105 lb 9.623 oz Body Mass Index (BMI) 19.3 Physical Exam Narrative Physical Examination: General: Awake, alert, oriented x 3 and cooperative, seated upright in the ED bed, fatigued and ill-appearing, no acute distress. Skin: Normal color, normal turgor, no icterus, no cyanosis except for occasional stage ecchymoses, occasion abrasion, significant bilateral lower extremity venous stasis skin changes. HEENT: AT/NC, EOMI, PERRLA, moderately dry MM, no carotid bruits or JVD noted. Lungs: Diffusely diminished, greater bases, occasional end expiratory wheeze, on the course bilateral bases. Heart: Irregular; no gallop, rub audible, valvular clicks. Abdomen: Soft, NTTP, distant BS, no obvious distention or HSM. Extremities: No cyanosis, clubbing, or edema, see skin. Neurological: Patient awake, alert, oriented as noted, cognitive function intact; pupils equally reactive to light and accommodation, cranial nerves grossly normal, moving all 4 extremities, no focal deficits, strength severely globally decreased secondary to acute presentation. Psychiatric: Affect appears fatigued, ill-appearing, no acute evidence of depressive or anxiety feelings. Results Lab / Micro Data 03/31/24 17:15 03/31/24 17:15 Labs: Laboratory Results - last 24 hr 03/31/24 17:15: WBC 5.2, RBC 3.95 L, Hgb 12.8, Hct 39.5, MCV 100.0 H, MCH 32.4 H , MCHC 32.4, RDW Std Deviation 49.5 H, RDW Coeff of Katie 13.3, Plt Count 186, MPV 12.6 H, Immature Gran % (Auto) 0.600, Neut % (Auto) 58.5, Lymph % (Auto) 30.0, M ashley % (Auto) 10.3 H, Eos % (Auto) 0.6, Baso % (Auto) 0.0, Absolute Neuts (auto) 3.0, Absolute Lymphs (auto) 1.55, Nucleated RBC % 0, PT 53.1 H, INR 5.7 H*, Sodium 140, Potassium 3.9, Chloride 106, Carbon Dioxide 25.0, Anion Gap 9, BUN 26 H, Creatinine 1.31 H, Estim Creat Clear Calc 26.76, Est GFR (MDRD) Af Amer 51 L, Est GFR (MDRD) Non-Af 42 L, BUN/Creatinine Ratio 19.8, Glucose 102, Calcium 9.0, Troponin I High Sens 32 03/31/24 18:49: Urine Color Yellow, Urine Clarity Clear, Urine pH 6.0, Ur Specific [place] 1.020, Urine Protein 30 H, Urine Glucose (UA) Normal, Urine Ketones Negative, Urine Occult Blood 25 H, Urine Nitrite Negative, Urine Bilirubin Negative, Urine Urobilinogen Normal, Ur Leukocyte Esterase 500 H, Urine RBC 0-5 SEEN, Urine WBC 25-50 SEEN, Ur Squamous Epith Cells 5-10 SEEN, Urine Bacteria 1+, Urine Mucus 0 SEEN Rhythm Strip Rhythm Strip: A-fib Ectopy: None Imaging Radiology Impression Chest X-Ray 03/31/24 18:08 IMPRESSION: Minimal streaky opacity in the left infrahilar region, possibly due to atelectasis or early infiltrate. 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 Galindo on outpatient chemotherapy injection who presents to the [facility] ED on 03/31/2024 with history of progressive fatigue, weakness, malaise, dyspnea worse with exertion as well as productive cough which she is notes having had over the last several weeks however it has been more pronounced over the last several days with productive sputum noted to be yellow in color with urgent care evaluation 4 days prior diagnosed at that time with influenza A in addition to suspected superimposed bacterial pneumonia started on antibiotic but given her debility and inability to even function prompted ED evaluation to be cautious. #1. Adult FTT secondary to Acute Viral Influenza A Syndrome with Questionable superimposed bacterial pneumonia in the left infrahilar region, lower suspicion: Will admit to MS, currently maintaining appropriate saturation, will maintain on ATC budesonide therapy, PRN albuterol, given timeline not tamiflu candidate, encourage HOB, IS parameters w/ pending sputum cultures, procalcitonin and urine antigens. Currently as noted #2, possible UTI, lower suspicion as no symptoms, awaiting UCx. Also, possible superimposed bacterial infection versus atelectasis, suspect atelectasis however to be cautious as noted procalcitonin pending if significantly elevated low threshold to add antibiotic therapy at that time as well as awaiting sputum culture which will be induced. #2. Possible Acute Urinary Tract Infection, lower suspicion: UA upon ED evaluation remarkable, pending UCx, continue IVFs, monitor I/Os, lower suspicion, no symptoms per patient report. Will hold off on abx therapy pending culture. #3. PAF with hypercoagulable status with supratherapeutic INR: Continue patient home diltiazem as well as Coreg with hold parameters as needed, admission INR supratherapeutic at 5.7, will temporarily hold and repeat INR in the a.m. with resumption once clinically appropriate. #4. Hypertension: Continue home regimen including diltiazem, Coreg with hold parameters as needed, PRN hydralazine. Holding lasix temporarily. #5. Chronic Kidney Disease Stage III, unclear subtype per GFR trending: Admission BUN/Cr 26/1.31, GFR 42, baseline renal function 1.3-1.6 more recently however remotely has been transiently elevated but was acute presentation likely, repeat BMP in AM. #6. Valvular heart disease status post mitral and aortic mechanical valves: 11/12/2022 echocardiogram with EF 75%, LA severely enlarged, RA severely enlarged, normal LV size, moderate concentric LVH, no regional wall motion abnormality, this LV gradient of no more than 15 mmHg, mechanical mitral and aortic valve functioning well. INR upon presentation supratherapeutic, temporally holding, repeat INR in the a.m., resume Coumadin immediately once clinically appropriate. #7. Pelvic bone cancer, renal cancer: Unclear specific types and interventions, following with [facility] oncology Dr. Galindo with noted ongoing outpatient chemotherapy injections, encourage continued follow-up as previously arranged. Mag, Phos levels requested. #8. Tobacco Abuse: Encouraged cessation, inpatient consultation per RT, NR if desired. #9. DVT prophylaxis: Holding Coumadin as noted given INR upon presentation supratherapeutic at 5.7, repeat INR in a.m., resume Coumadin once clinically appropriate. #10. CODE status: Patient HCPOA is her and daughter and living will is currently in place. Discussed CODE status at length including difference between FULL code, DNR-CCA and DNR-CC status. Following discussions about the differences in these status, requested Full Code status. Advanced Care Planning Face to Face Time: 16 minutes. Charges/Coding Visit Charges Inpatient E&M: 59992 Init Hosp L3 Procedures Hospitalists Procedures: 57612 Advncd Care Plan 30 Min
[2024-03-31] MEDS: 0.9% Normal Saline (1000mL) 1,000 ML 100 ML IV (22:27)
[2024-03-31 22:42] LABS: Magnesium 2.1 mg/dL (1.6-2.6)
--- NOTE | 2024-03-31 23:18 | NURSING ---
Clarisa had no robitussin even though it said one. Drawer was empty called [facility] in pharmacy he is sending some up for patient.
[2024-03-31] MEDS: Ceftriaxone 1 GM/50 ML BAG IV (23:24)
[2024-03-31] MEDS: Acyclovir 200 MG Capsule 400 MG PO (23:24)
[2024-03-31] MEDS: MELATONIN 3 MG TABLET PO (23:24)
[2024-03-31] MEDS: guaiFENesin 10 ML UDC (200MG/10ML) 20 ML PO (23:25)
[2024-04-01 04:20] VITALS: BP 140/89; PULSE 79; RESP 19; TEMP 36.7; O2SAT 96
[2024-04-01 06:00] VITALS: BMI 18.3
[2024-04-01 06:58] LABS: Absolute Lymphocyte Count 1.18 X10^3/uL (0.83-4.51); Absolute Neutrophil Count 2.4 X10^3/uL (2.0-7.7); Basophil# 0.01 X10^3/uL; Basophil% 0.2 % (0-1); Eosinophil# 0.06 X10^3/uL; Eosinophils% 1.4 % (0-5); Hemoglobin 11.4 g/dL (12.0-15.0); Lymphocyte # 1.18 X10^3/ul (0.83-4.51); Lymphocyte % 28.2 % (19-41); Mean Corp Hgb Conc 33.5 g/dL (32-36); Mean Corpuscular Hgb 33.2 pg (27.0-32.0); Mean Corpuscular Volume 99.1 fL (81-99); Mean Platelet Vol. 11.4 fl (6.2-12.0); Monocyte# 0.47 X10^3/uL; Monocyte% 11.2 % (0-10); NRBC Flagged by Analyzer 0 % (0-5); Neutrophil # 2.43 X10^3/uL (2.7-7.7); Neutrophil % 58.3 % (47-70); Platelet Count 145 K/mm3 (150-450); RBC Distribution Width CV 13.4 % (11.6-14.6); RBC Distribution Width SD 48.6 fl (35.1-43.9); Red Blood Count 3.43 M/mm3 (4.2-5.4); White Blood Count 4.2 K/mm3 (4.4-11.0)
[2024-04-01 07:18] LABS: Prothrombin Time (Protime)PT. 62.8 SECONDS (11.7-14.9)
[2024-04-01 07:24] LABS: International Normalized Ratio 7.1
[2024-04-01 07:36] LABS: ALB/GLOB Ratio 1.1 RATIO (0.9-2.4); AST(SGOT) 22 U/L (15-37); Alanine Aminotransfer ALT/SGPT 17 U/L (13-56); Albumin, Serum 2.8 g/dL (3.2-5.0); Alkaline Phosphatase 90 U/L (45-117); Anion Gap 7 (5-15); BUN 26 mg/dL (7-18); Calcium,Total 8.9 mg/dL (8.5-10.1); Chloride 110 mmol/L (98-107); Creatinine, Serum 1.24 mg/dL (0.55-1.02); EST Glomerular Filtration Rate 44 mL/min (>60); Est Glom Filt Rate - Afr Amer 54 mL/min (>60); Estimated Creatinine Clearance 26.68 ml/min; Globulin 2.5 g/dL (2.2-4.2); Glucose 84 mg/dL (74-106); Potassium 3.4 mmol/L (3.5-5.1); Protein, Total 5.3 g/dL (6.4-8.2); Sodium Level 141 mmol/L (136-145)
[2024-04-01] MEDS: Budesonide Respules 0.5 MG/2 ML AMPUL.NEB. INHALATION ×2 (08:04→19:15)
[2024-04-01 08:06] VITALS: PULSE 75; RESP 16; O2SAT 97
[2024-04-01] MEDS: Carvedilol 12.5 MG Tablet PO ×2 (08:59→17:00)
[2024-04-01] MEDS: Acyclovir 200 MG Capsule 400 MG PO ×2 (09:00→21:04)
[2024-04-01] MEDS: Azithromycin 250 MG Tablet 500 MG PO (09:02)
[2024-04-01 09:41] LABS: Procalcitonin 0.31 ng/mL (0.00-0.09)
[2024-04-01 11:00] VITALS: BP 126/75; PULSE 74; RESP 16; TEMP 37.1; O2SAT 97
--- NOTE | 2024-04-01 13:04 | PN.HOSP_ITS ---
Subjective Subjective No issues overnight, doing well. Managing on room air Objective Data Objective Data Vital Signs: Vital Signs Temp Pulse Resp BP Pulse Ox O2 Del Method 98.1 F 75 16 140/89 H 97 Room Air 04/01/24 04:20 04/01/24 08:06 04/01/24 08:06 04/01/24 04:20 04/01/24 08:06 04/01/24 08:06 Oxygen Delivery Method Room Air Weight: 99 lb 10.383 oz Body Mass Index (BMI) 18.3 Intake & Output: Intake and Output for Last 24 Hours 03/31/24 04/01/24 04/02/24 03:59 03:59 03:59 Intake Total 150 / 150 1400 / 1400 Balance 150 / 150 1400 / 1400 Lab / Micro Data 04/01/24 06:34 04/01/24 06:34 Labs: Laboratory Results - last 24 hr 03/31/24 17:15: WBC 5.2, RBC 3.95 L, Hgb 12.8, Hct 39.5, MCV 100.0 H, MCH 32.4 H , MCHC 32.4, RDW Std Deviation 49.5 H, RDW Coeff of Katie 13.3, Plt Count 186, MPV 12.6 H, Immature Gran % (Auto) 0.600, Neut % (Auto) 58.5, Lymph % (Auto) 30.0, M ashley % (Auto) 10.3 H, Eos % (Auto) 0.6, Baso % (Auto) 0.0, Absolute Neuts (auto) 3.0, Absolute Lymphs (auto) 1.55, Nucleated RBC % 0, PT 53.1 H, INR 5.7 H*, Sodium 140, Potassium 3.9, Chloride 106, Carbon Dioxide 25.0, Anion Gap 9, BUN 26 H, Creatinine 1.31 H, Estim Creat Clear Calc 26.76, Est GFR (MDRD) Af Amer 51 L, Est GFR (MDRD) Non-Af 42 L, BUN/Creatinine Ratio 19.8, Glucose 102, Calcium 9.0, Phosphorus 3.0, Magnesium 2.1, Troponin I High Sens 32 03/31/24 18:49: Urine Color Yellow, Urine Clarity Clear, Urine pH 6.0, Ur Specific [place] 1.020, Urine Protein 30 H, Urine Glucose (UA) Normal, Urine Ketones Negative, Urine Occult Blood 25 H, Urine Nitrite Negative, Urine Bilirubin Negative, Urine Urobilinogen Normal, Ur Leukocyte Esterase 500 H, Urine RBC 0-5 SEEN, Urine WBC 25-50 SEEN, Ur Squamous Epith Cells 5-10 SEEN, Urine Bacteria 1+, Urine Mucus 0 SEEN 04/01/24 06:34: WBC 4.2 L, RBC 3.43 L, Hgb 11.4 L, Hct 34.0 L, MCV 99.1 H, MCH 33.2 H, MCHC 33.5, RDW Std Deviation 48.6 H, RDW Coeff of Katie 13.4, Plt Count 145 L, MPV 11.4, Immature Gran % (Auto) 0.700, Neut % (Auto) 58.3, Lymph % (Auto) 28.2, [place] % (Auto) 11.2 H, Eos % (Auto) 1.4, Baso % (Auto) 0.2, Absolute Neuts (auto) 2.4, Absolute Lymphs (auto) 1.18, Nucleated RBC % 0, PT 62.8 H, INR 7.1 H*, Sodium 141, Potassium 3.4 L, Chloride 110 H, Carbon Dioxide 25.0, Anion Gap 7, BUN 26 H, Creatinine 1.24 H, Estim Creat Clear Calc 26.68, Est GFR (MDRD) Af Amer 54 L, Est GFR (MDRD) Non-Af 44 L, BUN/Creatinine Ratio 21.0 H, Glucose 84, Calcium 8.9, Total Bilirubin 0.60, AST 22, ALT 17, Alkaline Phosphatase 90, Total Protein 5.3 L, Albumin 2.8 L, Globulin 2.5, Albumin/Globulin Ratio 1.1, P rocalcitonin 0.31 H Micro: Microbiology 03/31/24 18:44 Urine Catheter - Catheter Urine Culture - Preliminary Culture exhibits no growth. 03/31/24 18:44 Urine Catheter - Catheter Legionella Antigen - Final 03/31/24 18:44 Urine Catheter - Catheter Streptococcus pneumoniae Antigen (M - Final Radiography Diagnostic Testing: Radiology Impression Chest X-Ray 03/31/24 18:08 IMPRESSION: Minimal streaky opacity in the left infrahilar region, possibly due to atelectasis or early infiltrate. Reading Location: [facility] Rhythm Strip Rhythm Strip: A-fib Ectopy: None Physical Exam Narrative General: Alert, Oriented x3, Cooperative, No apparent distress HEENT: Atraumatic, PERRLA, EOMI, Normocephalic Oral: Moist Mucosa Neck: Supple, No JVD Lungs: Diminished, Normal air movement, No rhonchi, No wheeze, No rales Cardiovascular: Irregular rate and rhythm, Normal S1, Normal S2, No murmurs Abdomen: Soft, Non Tender, Non-Distended, No Hepato-splenomegaly Extremities: No edema, Capillary Refill Less than 3 Seconds Skin: No rashes, No breakdown Musculoskeletal: No Tenderness to Palpation of Joints or Extremities Neurological: No focal neurological deficits, Motor Exam 5/5 strength throughout, Sensory exam intact to light touch and pain Psych/Mental Status: Normal Affect, Appropriate Assessment & Plan Assessment/Plan (1) Influenza A: PLAN: Plan #1. Adult FTT secondary to Acute Viral Influenza A Syndrome with Questionable superimposed bacterial pneumonia in the left infrahilar region, lower suspicion: Will admit to MS, currently maintaining appropriate saturation, will maintain on ATC budesonide therapy, PRN albuterol, given timeline not tamiflu candidate, encourage HOB, IS parameters w/ pending sputum cultures, procalcitonin and urine antigens. Currently as noted #2, possible UTI, lower suspicion as no symptoms, awaiting UCx. Also, possible superimposed bacterial infection versus atelectasis, suspect atelectasis however to be cautious as noted procalcitonin pending if significantly elevated low threshold to add antibiotic therapy at that time as well as awaiting sputum culture which will be induced. 04/01/2024: She is on Rocephin for possible UTI will add azithromycin for possible superimposed bacterial pneumonia given that she is already on antibiotic therapy #2. Possible Acute Urinary Tract Infection, lower suspicion: UA upon ED evaluation remarkable, pending UCx, continue IVFs, monitor I/Os, lower suspicion, no symptoms per patient report. Will hold off on abx therapy pending culture. 04/01/2024: Urine cultures pending #3. PAF with hypercoagulable status with supratherapeutic INR: Continue patient home diltiazem as well as Coreg with hold parameters as needed, admission INR supratherapeutic at 5.7, will temporarily hold and repeat INR in the a.m. with resumption once clinically appropriate. 04/01/2024: INR 7.1, continue to hold Coumadin will recheck in the morning if continues to climb will provide vitamin K #4. Hypertension: Continue home regimen including diltiazem, Coreg with hold parameters as needed, PRN hydralazine. Holding lasix temporarily. #5. Chronic Kidney Disease Stage III, unclear subtype per GFR trending: Admission BUN/Cr 26/1.31, GFR 42, baseline renal function 1.3-1.6 more recently however remotely has been transiently elevated but was acute presentation likely, repeat BMP in AM. #6. Valvular heart disease status post mitral and aortic mechanical valves: 11/12/2022 echocardiogram with EF 75%, LA severely enlarged, RA severely enlarged, normal LV size, moderate concentric LVH, no regional wall motion abnormality, this LV gradient of no more than 15 mmHg, mechanical mitral and aortic valve functioning well. INR upon presentation supratherapeutic, temporally holding, repeat INR in the a.m., resume Coumadin immediately once clinically appropriate. #7. Pelvic bone cancer, renal cancer: Unclear specific types and interventions, following with [facility] oncology Dr. Galindo with noted ongoing outpatient chemotherapy injections, encourage continued follow-up as previously arranged. Mag, Phos levels requested. #8. Tobacco Abuse: Encouraged cessation, inpatient consultation per RT, NR if desired. DVT: Supratherapeutic INR Charges/Coding Visit Charges Inpatient E&M: 38540 Subs Hosp L2
--- NOTE | 2024-04-01 14:42 | CASEMGMT ---
Met with patient to complete GONZALEZ form. GONZALEZ form explained to patient who voiced understanding and signed form. Original form placed in pt?s chart and copy provided to patient. Twila Laws, Discharge Planning Asst
--- NOTE | 2024-04-01 15:19 | CASEMGMT ---
ROBSON COVARRUBIAS into pt room, pt lying in bed in no distress on RA. Reviewed therapy notes, discussed with pt. Pt states she has her granddtr and at home. She is typically indep. She denies any homegoing needs. Pt has a walker and cane at home. ROBSON COVARRUBIAS to continue to follow.
[2024-04-01 17:00] VITALS: BP 127/84; PULSE 55; RESP 16; TEMP 36.6; O2SAT 96
[2024-04-01 19:15] VITALS: PULSE 64; RESP 16; O2SAT 96
[2024-04-01 20:40] VITALS: BP 120/72; PULSE 67; RESP 15; TEMP 37; O2SAT 97
[2024-04-01] MEDS: Ceftriaxone 1 GM/50 ML BAG IV (21:04)
[2024-04-01] MEDS: 0.9% Saline Lock 10 ML Syringe IV ×2 (21:05→21:50)
[2024-04-02] VITALS (7 sets, daily range): BP systolic 114–142; BP diastolic 72–85; PULSE 51–76; RESP 16–18; TEMP 36.6–37.1; O2SAT 95–98; BMI 19.3
[2024-04-02 07:31] LABS: Absolute Lymphocyte Count 1.48 X10^3/uL (0.83-4.51); Basophil# 0.01 X10^3/uL; Basophil% 0.2 % (0-1); Eosinophil# 0.04 X10^3/uL; Hematocrit 33.4 % (37-47); Hemoglobin 10.9 g/dL (12.0-15.0); Lymphocyte # 1.48 X10^3/ul (0.83-4.51); Lymphocyte % 36.6 % (19-41); Mean Corp Hgb Conc 32.6 g/dL (32-36); Mean Corpuscular Hgb 32.5 pg (27.0-32.0); Mean Corpuscular Volume 99.7 fL (81-99); Mean Platelet Vol. 11.5 fl (6.2-12.0); Monocyte# 0.46 X10^3/uL; Monocyte% 11.4 % (0-10); NRBC Flagged by Analyzer 0 % (0-5); Neutrophil # 2.03 X10^3/uL (2.7-7.7); Neutrophil % 50.3 % (47-70); Platelet Count 166 K/mm3 (150-450); RBC Distribution Width CV 13.4 % (11.6-14.6); RBC Distribution Width SD 48.9 fl (35.1-43.9); Red Blood Count 3.35 M/mm3 (4.2-5.4)
[2024-04-02 07:43] LABS: Prothrombin Time (Protime)PT. 43.7 SECONDS (11.7-14.9)
[2024-04-02 08:02] LABS: International Normalized Ratio 4.5
[2024-04-02 08:10] LABS: Anion Gap 5 (5-15); BUN 24 mg/dL (7-18); BUN/Creat Ratio 21.6 RATIO (10-20); Chloride 112 mmol/L (98-107); Creatinine, Serum 1.11 mg/dL (0.55-1.02); EST Glomerular Filtration Rate 51 mL/min (>60); Est Glom Filt Rate - Afr Amer 61 mL/min (>60); Estimated Creatinine Clearance 31.52 ml/min; Glucose 84 mg/dL (74-106); Potassium 3.6 mmol/L (3.5-5.1); Sodium Level 142 mmol/L (136-145)
[2024-04-02] MEDS: Carvedilol 12.5 MG Tablet PO ×2 (09:33→17:48)
[2024-04-02] MEDS: Acyclovir 200 MG Capsule 400 MG PO ×2 (09:34→21:26)
[2024-04-02] MEDS: Azithromycin 250 MG Tablet 500 MG PO (09:34)
--- NOTE | 2024-04-02 11:47 | PN.HOSP_ITS ---
Subjective Subjective Doing well, no issues overnight. Feels better than yesterday Objective Data Objective Data Vital Signs: Vital Signs Temp Pulse Resp BP Pulse Ox O2 Del Method 98.5 F 76 16 128/85 H 95 Room Air 04/02/24 08:45 04/02/24 08:45 04/02/24 08:45 04/02/24 08:45 04/02/24 08:45 04/02/24 08:45 Oxygen Delivery Method Room Air Weight: 105 lb 6.095 oz Body Mass Index (BMI) 19.3 Intake & Output: Intake and Output for Last 24 Hours 04/01/24 04/02/24 04/03/24 03:59 03:59 03:59 Intake Total 150 / 150 1750 / 1750 250 / 250 Balance 150 / 150 1750 / 1750 250 / 250 Lab / Micro Data 04/02/24 06:35 04/02/24 06:35 Labs: Laboratory Results - last 24 hr 04/02/24 06:35: WBC 4.0 L, RBC 3.35 L, Hgb 10.9 L, Hct 33.4 L, MCV 99.7 H, MCH 32.5 H, MCHC 32.6, RDW Std Deviation 48.9 H, RDW Coeff of Katie 13.4, Plt Count 166, MPV 11.5, Immature Gran % (Auto) 0.500, Neut % (Auto) 50.3, Lymph % (Auto) 36.6, [place] % (Auto) 11.4 H, Eos % (Auto) 1.0, Baso % (Auto) 0.2, Absolute Neuts (auto) 2.0, Absolute Lymphs (auto) 1.48, Nucleated RBC % 0, PT 43.7 H, INR 4.5 H*, Sodium 142, Potassium 3.6, Chloride 112 H, Carbon Dioxide 24.0, Anion Gap 5, BUN 24 H, Creatinine 1.11 H, Estim Creat Clear Calc 31.52, Est GFR (MDRD) Af Amer 61, Est GFR (MDRD) Non-Af 51 L, BUN/Creatinine Ratio 21.6 H, Glucose 84, Calcium 9.0 Micro: Microbiology 03/31/24 18:44 Urine Catheter - Catheter Urine Culture - Preliminary Gram negative malena Gram positive malena 03/31/24 18:44 Urine Catheter - Catheter Legionella Antigen - Final 03/31/24 18:44 Urine Catheter - Catheter Streptococcus pneumoniae Antigen (M - Final Rhythm Strip Rhythm Strip: A-fib Ectopy: None Physical Exam Narrative General: Alert, Oriented x3, Cooperative, No apparent distress HEENT: Atraumatic, PERRLA, EOMI, Normocephalic Oral: Moist Mucosa Neck: Supple, No JVD Lungs: Diminished, Normal air movement, No rhonchi, No wheeze, No rales Cardiovascular: Irregular rate and rhythm, Normal S1, Normal S2, No murmurs Abdomen: Soft, Non Tender, Non-Distended, No Hepato-splenomegaly Extremities: No edema, Capillary Refill Less than 3 Seconds Skin: No rashes, No breakdown Musculoskeletal: No Tenderness to Palpation of Joints or Extremities Neurological: No focal neurological deficits, Motor Exam 5/5 strength throughout, Sensory exam intact to light touch and pain Psych/Mental Status: Normal Affect, Appropriate Assessment & Plan Assessment/Plan (1) Influenza A: PLAN: Plan #1. Adult FTT secondary to Acute Viral Influenza A Syndrome with Questionable superimposed bacterial pneumonia in the left infrahilar region, lower suspicion: Will admit to MS, currently maintaining appropriate saturation, will maintain on ATC budesonide therapy, PRN albuterol, given timeline not tamiflu candidate, encourage HOB, IS parameters w/ pending sputum cultures, procalcitonin and urine antigens. Currently as noted #2, possible UTI, lower suspicion as no symptoms, awaiting UCx. Also, possible superimposed bacterial infection versus atelectasis, suspect atelectasis however to be cautious as noted procalcitonin pending if significantly elevated low threshold to add antibiotic therapy at that time as well as awaiting sputum culture which will be induced. 04/01/2024: She is on Rocephin for possible UTI will add azithromycin for possible superimposed bacterial pneumonia given that she is already on antibiotic therapy 04/02/2024: She is feeling better so we will continue with current therapy awaiting urine cultures #2. Possible Acute Urinary Tract Infection, lower suspicion: UA upon ED evaluation remarkable, pending UCx, continue IVFs, monitor I/Os, lower suspicion, no symptoms per patient report. Will hold off on abx therapy pending culture. 04/01/2024: Urine cultures pending #3. PAF with hypercoagulable status with supratherapeutic INR: Continue patient home diltiazem as well as Coreg with hold parameters as needed, admission INR supratherapeutic at 5.7, will temporarily hold and repeat INR in the a.m. with resumption once clinically appropriate. 04/01/2024: INR 7.1, continue to hold Coumadin will recheck in the morning if continues to climb will provide vitamin K 04/02/2024: Will hold off on vitamin K as her INR is down to 4.5 today #4. Hypertension: Continue home regimen including diltiazem, Coreg with hold parameters as needed, PRN hydralazine. Holding lasix temporarily. #5. Chronic Kidney Disease Stage III, unclear subtype per GFR trending: Admission BUN/Cr 26/1.31, GFR 42, baseline renal function 1.3-1.6 more recently however remotely has been transiently elevated but was acute presentation likely, repeat BMP in AM. #6. Valvular heart disease status post mitral and aortic mechanical valves: 11/12/2022 echocardiogram with EF 75%, LA severely enlarged, RA severely enlarged, normal LV size, moderate concentric LVH, no regional wall motion abnormality, this LV gradient of no more than 15 mmHg, mechanical mitral and aortic valve functioning well. INR upon presentation supratherapeutic, temporally holding, repeat INR in the a.m., resume Coumadin immediately once clinically appropriate. #7. Pelvic bone cancer, renal cancer: Unclear specific types and interventions, following with [facility] oncology Dr. Galindo with noted ongoing outpatient chemotherapy injections, encourage continued follow-up as previously arranged. Mag, Phos levels requested. #8. Tobacco Abuse: Encouraged cessation, inpatient consultation per RT, NR if desired. DVT: Supratherapeutic INR Charges/Coding Visit Charges Inpatient E&M: 54666 Subs Hosp L2
[2024-04-02] MEDS: Albuterol 2.5 MG/3 ML VIAL.NEB. INHALATION (13:59)
[2024-04-02] MEDS: Budesonide Respules 0.5 MG/2 ML AMPUL.NEB. INHALATION ×2 (13:59→20:04)
[2024-04-02] MEDS: 0.9% Saline Lock 10 ML Syringe IV ×2 (21:26→22:56)
[2024-04-02] MEDS: Ceftriaxone 1 GM/50 ML BAG IV (21:26)
[2024-04-03 02:14] VITALS: BP 147/94; PULSE 64; RESP 18; TEMP 36.9; O2SAT 97
[2024-04-03 06:00] VITALS: BMI 19.3
[2024-04-03 07:00] LABS: International Normalized Ratio 2.5; Prothrombin Time (Protime)PT. 27.8 SECONDS (11.7-14.9)
[2024-04-03] MEDS: Budesonide Respules 0.5 MG/2 ML AMPUL.NEB. INHALATION (07:08)
[2024-04-03 07:09] VITALS: PULSE 75; RESP 18; O2SAT 99
[2024-04-03 08:00] VITALS: RESP 18
[2024-04-03 08:15] VITALS: BP 137/88; PULSE 79; RESP 18; TEMP 36.5; O2SAT 97
[2024-04-03] MEDS: Acyclovir 200 MG Capsule 400 MG PO (09:36)
[2024-04-03] MEDS: Azithromycin 250 MG Tablet 500 MG PO (09:37)
[2024-04-03] MEDS: Carvedilol 12.5 MG Tablet PO (09:37)
--- NOTE | 2024-04-03 09:46 | PCM.DC ---
Discharge Instructions Diet Discharge Diet: Low fat / Low cholesterol DC O2, CPAP, BIPAP needs Home O2 Discharge instructions: No Dressing / Incision Discharge Activity: Return to Normal Activity Dressing / Incision Call your doctor if you observe: Fever of 101 or Higher, Shortness of breath, Dizziness, Fainting spells, Swelling in the ankles, Chest pain and Increased palpitations (irregular heartbeat) Follow Up Care Test Results: Test results from this visit will be discussed in further detail at your follow-up appointment, if applicable. Discharge Plan Admission Admit Date/Time: 03/31/24 20:32 Attending Provider: Marv Watkins Primary Care Provider: Leon Mandel Consulting Providers: Aleida Calvillo Discharge Orders/Prescriptions Prescriptions: New cefdinir 300 mg capsule 300 mg PO BID 4 Days Qty: 8 0RF Continued warfarin 3 mg tablet 3 mg .ROUTE .COMPLEX Qty: 120 1RF Rx Instructions: take 1/2 tablet with the 5 mg tablet daily carvedilol 12.5 mg tablet 12.5 mg PO BID Qty: 180 3RF Rx Instructions: must administer with a meal/food acetaminophen 500 MG tablet 1,000 mg PO TID PRN PRN (Reason: Pain) Qty: 90 0RF Patient Comments: Pain as needed (DME) pen needle, diabetic [Pen Needle] 29 gauge x 1/2 needle See Rx Instructions .Route Qty: 100 0RF Rx Instructions: As directed acyclovir 400 mg tablet 400 mg PO Q12.TCU furosemide 40 mg tablet 20 mg PO Q12H warfarin 7.5 mg tablet 7.5 mg PO DAILY Qty: 30 0RF warfarin 5 mg tablet 5 mg .ROUTE DAILY Qty: 60 2RF Rx Instructions: 5 mg daily; take with 1/2 of a 3 mg daily albuterol sulfate [Ventolin HFA] 90 mcg/actuation HFA aerosol inhaler 2 puff inhalation Q6H PRN (Reason: shortness of breath or wheezing) Qty: 8.5 1RF Referrals / Follow Up: Leon Mandel, [Primary Care Provider] - Within 1 Week Disposition Disposition (needs filled in before D/C Order can be placed): Home, Self Care
[2024-04-03 14:00] VITALS: RESP 18
[2024-04-03 15:19] VITALS: BP 134/70; PULSE 74; RESP 18; TEMP 37.1; O2SAT 98
--- NOTE | 2024-04-03 15:55 | PCM.DC.SUM ---
Providers Date of Admission: 03/31/24 Primary Care Physician: Dr. Leon Mandel, DO Reason For Visit: ADULT FTT, INFLUENZA A Diagnosis Discharge Diagnosis (1) Influenza A: Status: Acute Code(s): J10.1 - Influenza due to other identified influenza virus with other respiratory manifestations Medications at Discharge Home Medications acetaminophen 500 mg tablet 1,000 mg (2 x 500 mg) PO TID PRN PRN Pain #90 tabs 06/15/15 pen needle, diabetic 29 gauge x 1/2 (Pen Needle) #100 ea 11/14/22 warfarin 7.5 mg tablet 7.5 mg PO DAILY #30 tabs 02/01/23 warfarin 3 mg tablet 3 mg .Route .COMPLEX BLOOD THINNER #120 tabs 03/14/23 warfarin 5 mg tablet 5 mg .Route DAILY BLOOD THINNER #60 tabs 11/07/23 carvedilol 12.5 mg tablet 12.5 mg PO BID #180 tabs 01/03/24 albuterol sulfate 90 mcg/actuation aerosol inhaler (Ventolin HFA) 2 puff inhalation Q6H PRN shortness of breath or wheezing #8.5 grams 03/27/24 acyclovir 400 mg tablet 400 mg PO Q12.TCU 03/31/24 furosemide 40 mg tablet 20 mg PO Q12H 03/31/24 cefdinir 300 mg capsule 300 mg PO BID 4 days #8 caps 04/03/24 Hospital Course Operations None Procedures None Summary of Care Provided Minutes Spent on Discharge: 34 Hospital Course: Per HPI: The patient is a 78-year-old female with PMHx: Tobacco use, HTN, PAF, Valvular heart disease, CKD stage III per GFR trending, unclear subtype, Cancer to the pelvic bone as well as renal cancer following with Dr. Galindo on outpatient chemotherapy injection who presents to the [facility] ED on 03/31/2024 with history of progressive fatigue, weakness, malaise, dyspnea worse with exertion, congestion, body aches as well as mildly productive cough which she is notes having had over the last several weeks however it has been more pronounced over the last several days with productive sputum noted to be yellow in color with urgent care evaluation 4 days prior diagnosed at that time with influenza A in addition to suspected superimposed bacterial pneumonia started on antibiotic but given her debility and inability to even function prompted ED evaluation to be cautious. She denies any recent fevers or chills. She notes she has not had an appetite and not eaten for the last over 24 hours. She denies any dysuria but states that she has not been urinating much she has not been taking much. She notes all her family members have influenza A also. She denies any recent fever, chills, chest pain, nausea, emesis, diarrhea or abdominal pain. Workup in the ED included T97.5, heart 74, BP 136/67, respiratory rate 15, 100% on room air with most recent repeat vitals T97.5, heart rate 97, BP 131/87, respiratory rate 18, 99% room air, CBC with WC 5.2, human 12.8, MCV 100, platelet 186 without marked shift, coags with INR 5.7, PT 53.1, BMP with BUN/Lamar 26/1.31, GFR 42 otherwise not marked appearing, troponin 32, urinalysis with specific cavity mildly elevated 1.020, protein 30, occult blood 25, negative nitrite, leukocyte esterase with 500 with urine WBCs 25-50 with 1+ urine bacteria, urine culture pending per ED, chest x-ray w/ minimal streaky opacity left infrahilar region possibly atelectasis or early infiltrate, rapid SARS COVID/influenza/RSV PCR with positive RSV. In the ED patient ministered DuoNeb therapy. Hospital Course: #1. Adult FTT secondary to Acute Viral Influenza A Syndrome with Questionable superimposed bacterial pneumonia in the left infrahilar region, lower suspicion: Will admit to MS, currently maintaining appropriate saturation, will maintain on ATC budesonide therapy, PRN albuterol, given timeline not tamiflu candidate, encourage HOB, IS parameters w/ pending sputum cultures, procalcitonin and urine antigens. Currently as noted #2, possible UTI, lower suspicion as no symptoms, awaiting UCx. Also, possible superimposed bacterial infection versus atelectasis, suspect atelectasis however to be cautious as noted procalcitonin pending if significantly elevated low threshold to add antibiotic therapy at that time as well as awaiting sputum culture which will be induced. 04/01/2024: She is on Rocephin for possible UTI will add azithromycin for possible superimposed bacterial pneumonia given that she is already on antibiotic therapy 04/02/2024: She is feeling better so we will continue with current therapy awaiting urine cultures 04/03/2024: Urine cultures are unremarkable though she is growing gram-negative rods and gram-positive malena, there is both less than 25,000 CFU's. I discussed with her the plan for discharge today she expressed understanding of the risk benefits of going home and would like to go home today. She was outside of the window for Tamiflu but she did complete azithromycin for possible bacterial pneumonia and will continue with cefdinir on discharge for 4 more days to complete pneumonia treatment. #2. Possible Acute Urinary Tract Infection, lower suspicion: UA upon ED evaluation remarkable, pending UCx, continue IVFs, monitor I/Os, lower suspicion, no symptoms per patient report. Will hold off on abx therapy pending culture. 04/01/2024: Urine cultures pending 04/03/2024: Urine cultures unremarkable #3. PAF with hypercoagulable status with supratherapeutic INR: Continue patient home diltiazem as well as Coreg with hold parameters as needed, admission INR supratherapeutic at 5.7, will temporarily hold and repeat INR in the a.m. with resumption once clinically appropriate. 04/01/2024: INR 7.1, continue to hold Coumadin will recheck in the morning if continues to climb will provide vitamin K 04/02/2024: Will hold off on vitamin K as her INR is down to 4.5 today 04/03/2024: INR is 2.5, can resume Coumadin on discharge #4. Hypertension: Continue home regimen including diltiazem, Coreg with hold parameters as needed, PRN hydralazine. Holding lasix temporarily. 04/03/2024: Can resume Lasix on discharge as well as her Coreg #5. Chronic Kidney Disease Stage III, unclear subtype per GFR trending: Admission BUN/Cr 26/1.31, GFR 42, baseline renal function 1.3-1.6 more recently however remotely has been transiently elevated but was acute presentation likely, repeat BMP in AM. 04/03/2024: Follow-up with PCP as an outpatient 3 to 5 days to monitor renal function #6. Valvular heart disease status post mitral and aortic mechanical valves: 11/12/2022 echocardiogram with EF 75%, LA severely enlarged, RA severely enlarged, normal LV size, moderate concentric LVH, no regional wall motion abnormality, this LV gradient of no more than 15 mmHg, mechanical mitral and aortic valve functioning well. INR upon presentation supratherapeutic, temporally holding, repeat INR in the a.m., resume Coumadin immediately once clinically appropriate. #7. Pelvic bone cancer, renal cancer: Unclear specific types and interventions, following with [facility] oncology Dr. Galindo with noted ongoing outpatient chemotherapy injections, encourage continued follow-up as previously arranged. Mag, Phos levels requested. #8. Tobacco Abuse: Encouraged cessation, inpatient consultation per RT, NR if desired. Physical Exam Narrative General: Alert, Oriented x3, Cooperative, No apparent distress HEENT: Atraumatic, PERRLA, EOMI, Normocephalic Oral: Moist Mucosa Neck: Supple, No JVD Lungs: Diminished, Normal air movement, No rhonchi, No wheeze, No rales Cardiovascular: Irregular rate and rhythm, Normal S1, Normal S2, No murmurs Abdomen: Soft, Non Tender, Non-Distended, No Hepato-splenomegaly Extremities: No edema, Capillary Refill Less than 3 Seconds Skin: No rashes, No breakdown Musculoskeletal: No Tenderness to Palpation of Joints or Extremities Neurological: No focal neurological deficits, Motor Exam 5/5 strength throughout, Sensory exam intact to light touch and pain Psych/Mental Status: Normal Affect, Appropriate Weight / BMI Weight Weight: 105 lb 6.095 oz Body Mass Index (BMI) 19.3 ABG / Lab / Microbiology Data 04/02/24 06:35 04/02/24 06:35 Laboratory: Laboratory Results - last 24 hr 04/03/24 06:25: PT 27.8 H, INR 2.5 Microbiology: Microbiology 03/31/24 18:44 Urine Catheter - Catheter Urine Culture - Preliminary Gram negative malena Gram positive malena 03/31/24 18:44 Urine Catheter - Catheter Legionella Antigen - Final 03/31/24 18:44 Urine Catheter - Catheter Streptococcus pneumoniae Antigen (M - Final D/C Instructions Discharge Diet: Low fat / Low cholesterol Call your doctor if you observe: Fever of 101 or Higher, Shortness of breath, Dizziness, Fainting spells, Swelling in the ankles, Chest pain and Increased palpitations (irregular heartbeat) DC O2, CPAP, BIPAP Needs Home O2 Discharge instructions: No Meaningful Use Info Meaningful Use Meaningful Use Diagnoses (Choose all that apply): None applicable Ischemic Stroke Statin Dosing Therapy Reference: STATIN DOSE THERAPY REFERENCE: * Patients > 75 years receive moderate or high dose statin therapy. * Patients 75 years or YOUNGER should receive HIGH intensity statin dose unless contraindicated. You will be required to document reason for non-treatment if statin daily dose does not meet guidelines. HIGH DOSE STATIN THERAPY DAILY Atorvastatin > than or = to 40 mg Rosuvastatin > than or = to 20 mg Amlodipine + Atorvastatin > than or = to 2.5/40 mg Ezetimibe + Simvastatin 10/80 mg Simvastatin 80mg Discharge Plan Admission Admit Date/Time: 03/31/24 20:32 Attending Provider: Marv Watkins Primary Care Provider: Leon Mandel Consulting Providers: Aleida Calvillo Discharge Orders/Prescriptions Prescriptions: New cefdinir 300 mg capsule 300 mg PO BID 4 Days Qty: 8 0RF Continued warfarin 3 mg tablet 3 mg .ROUTE .COMPLEX Qty: 120 1RF Rx Instructions: take 1/2 tablet with the 5 mg tablet daily carvedilol 12.5 mg tablet 12.5 mg PO BID Qty: 180 3RF Rx Instructions: must administer with a meal/food acetaminophen 500 MG tablet 1,000 mg PO TID PRN PRN (Reason: Pain) Qty: 90 0RF Patient Comments: Pain as needed (DME) pen needle, diabetic [Pen Needle] 29 gauge x 1/2 needle See Rx Instructions .Route Qty: 100 0RF Rx Instructions: As directed acyclovir 400 mg tablet 400 mg PO Q12.TCU furosemide 40 mg tablet 20 mg PO Q12H warfarin 7.5 mg tablet 7.5 mg PO DAILY Qty: 30 0RF warfarin 5 mg tablet 5 mg .ROUTE DAILY Qty: 60 2RF Rx Instructions: 5 mg daily; take with 1/2 of a 3 mg daily albuterol sulfate [Ventolin HFA] 90 mcg/actuation HFA aerosol inhaler 2 puff inhalation Q6H PRN (Reason: shortness of breath or wheezing) Qty: 8.5 1RF Referrals / Follow Up: Leon Mandel DO [Primary Care Provider] - 04/12/24 7:30 am (This appointment is with Iman) Disposition Disposition (needs filled in before D/C Order can be placed): Home, Self Care Charges/Coding Visit Charges Inpatient E&M: 56412 Disch Hosp >30min
== END 2024-04-03 15:35 | disposition home or self-care (01) ==
LOC: ED 20:31 → MS3 21:25
PROVIDERS: Physician Assistant; Admitting Provider Family Medicine; Emergency Provider Emergency Medicine; PCP Family Medicine; Visit Provider Family Medicine
DX: J10.1 Influenza due to other identified influenza virus with other respiratory manifestations (principal); C79.51 Secondary malignant neoplasm of bone; C64.9 Malignant neoplasm of unspecified kidney, except renal pelvis; I48.0 Paroxysmal atrial fibrillation; N18.30 Chronic kidney disease, stage 3 unspecified; I12.9 Hypertensive chronic kidney disease with stage 1 through stage 4 chronic kidney disease, or unspecified chronic kidney disease; F17.200 Nicotine dependence, unspecified, uncomplicated; Z79.01 Long term (current) use of anticoagulants; D68.59 Other primary thrombophilia; Z79.899 Other long term (current) drug therapy; R62.7 Adult failure to thrive
CPT/HCPCS: 36415; 71046; 80048; 80053; 81001; 83735; 84100; 84145; 84484; 85025; 85610; 87077; 87086; 87088; 87186; 87449; 93005; 94640; 94668; 96361; 96365; 96366; 97162; 97166; 97530; 97535; 99221; 99285; P9612; A4216; G0378

== ENCOUNTER 2024-04-11 14:44 | Outpatient (RCR) | payer MEDICARE, SELFPAY ==
[2024-04-11 16:43] LABS: International Normalized Ratio 1.6; Prothrombin Time (Protime)PT. 19.7 SECONDS (11.7-14.9)
== END 2024-04-19 23:59 ==
LOC: BIMLAB 14:44
PROVIDERS: PCP Family Medicine; Referring Provider Family Medicine; Visit Provider Family Medicine
DX: Z79.01 Long term (current) use of anticoagulants (principal)
CPT/HCPCS: 36415; 85610

== ENCOUNTER → 2024-06-17 | Outpatient (CLI) | payer MEDICARE, SELFPAY ==
[2024-06-17 17:46] LABS: International Normalized Ratio 2.1; Prothrombin Time (Protime)PT. 24.3 SECONDS (11.7-14.9)
== END | disposition home or self-care (01) ==
LOC: BIMLAB 14:50
PROVIDERS: PCP Family Medicine; Visit Provider Family Medicine
DX: I48.20 Chronic atrial fibrillation, unspecified (principal)
CPT/HCPCS: 36415; 85610

== ENCOUNTER 2024-07-24 14:41 | Outpatient (RCR) | payer MEDICARE, SELFPAY ==
[2024-07-24 17:09] LABS: International Normalized Ratio 3.1; Prothrombin Time (Protime)PT. 32.6 SECONDS (11.7-14.9)
== END 2024-08-19 23:59 ==
LOC: BIMLAB 14:41
PROVIDERS: PCP Family Medicine; Referring Provider Family Medicine; Visit Provider Family Medicine
DX: I48.20 Chronic atrial fibrillation, unspecified (principal)
CPT/HCPCS: 36415; 85610

== ENCOUNTER 2024-08-15 12:34 | Emergency (ER) | payer MEDICARE, SELFPAY ==
[2024-08-15 12:35] VITALS: BP 139/69; PULSE 63; RESP 20; TEMP 35.7; O2SAT 98; BMI 19.1
--- NOTE | 2024-08-15 13:51 | CT_ITS ---
PROCEDURE: ABDOMEN/PELVIS W IV CONT ONLY 08/15/2024 REASON FOR EXAM: RLQ ABD PAIN 3 day history of generalized weakness. Decreased urination. Stage III renal disease. History of renal cancer TECHNIQUE: ABDOMEN/PELVIS W IV CONT ONLY Coronal and Sagittal reconstruction series were provided. CONTRAST: Isovue-300 VOLUME: 100 mL One or more dose reduction techniques were used (e.g., Automated exposure control, adjustment of the mA and/or kV according to patient size, use of iterative reconstruction technique. RADIATION DOSE SUMMARY: CTDlvol: 29.92 mGy DLP: 14.96 mGycm COMPARISON: None FINDINGS: Lung bases: Lung bases are clear. Coronary artery calcification. Prior mitral valve replacement. Liver: Minimally dilated intrahepatic biliary ducts. Gallbladder: Gallbladder is slightly distended. No definite gallstones are seen. Spleen: Normal size. Pancreas: Diffuse fatty atrophy. Adrenals: Unremarkable Kidneys: Unremarkable Bladder: Distended urinary bladder. Reproductive Organs: Prior hysterectomy. Adnexal regions are unremarkable. Bowel: Colonic diverticulosis without diverticulitis. Fecal material is seen throughout the colon. Appendix: Nonvisualized Lymph nodes: Unremarkable. Vasculature: Mild diffuse atherosclerotic calcifications are noted. Peritoneum / Retroperitoneum: Unremarkable Bones: Prior right total hip replacement. Loss of height of the superior endplate of the L3 vertebrae. CT/Abdomen/Pelvis W IV Cont ONLY IMPRESSION: Minimally distended gallbladder. Mild central intrahepatic biliary ductal dilatation. Reading Location: [id number]
[2024-08-15] MEDS: 0.9% Normal Saline (1000mL) 1,000 ML 999 ML IV (13:55)
[2024-08-15 14:07] LABS: Absolute Lymphocyte Count 2.21 X10^3/uL (0.83-4.51); Absolute Neutrophil Count 4.4 X10^3/uL (2.0-7.7); Basophil# 0.02 X10^3/uL; Basophil% 0.3 % (0-1); Eosinophil# 0.06 X10^3/uL; Eosinophils% 0.8 % (0-5); Hematocrit 42.5 % (37-47); Hemoglobin 14.4 g/dL (12.0-15.0); Lymphocyte # 2.21 X10^3/ul (0.83-4.51); Lymphocyte % 29.9 % (19-41); Mean Corp Hgb Conc 33.9 g/dL (32-36); Mean Corpuscular Hgb 32.7 pg (27.0-32.0); Mean Corpuscular Volume 96.6 fL (81-99); Mean Platelet Vol. 11.7 fl (6.2-12.0); Monocyte# 0.73 X10^3/uL; Monocyte% 9.9 % (0-10); NRBC Flagged by Analyzer 0 % (0-5); Neutrophil # 4.35 X10^3/uL (2.7-7.7); Neutrophil % 58.7 % (47-70); Platelet Count 156 K/mm3 (150-450); RBC Distribution Width CV 12.9 % (11.6-14.6); RBC Distribution Width SD 46.1 fl (35.1-43.9); White Blood Count 7.4 K/mm3 (4.4-11.0)
[2024-08-15 14:34] LABS: Bacteria 0 SEEN /hpf (None Seen); Mucous, Urine 0 SEEN /hpf (<or=2+)
[2024-08-15 14:37] LABS: International Normalized Ratio 1.9; Prothrombin Time (Protime)PT. 22.6 SECONDS (11.7-14.9)
[2024-08-15 14:38] LABS: Partial Thromboplast Time 30.2 Seconds (24.1-36.2)
[2024-08-15 14:39] LABS: Color, Urine Straw (Yellow); Glucose, Dipstick Normal (Normal); Ketone-Dipstick Negative (Negative); Leukocyte Esterase-Dipstick Negative /ul (Negative); Nitrite-Dipstick Negative (Negative); Occult Blood-Urine Negative /ul (Negative); Protein-Dipstick Negative (Negative); Urine Bilirubin Dipstick Negative (Negative); Urine Clarity Clear (Clear); Urine Urobilinogen Normal (Normal); Urine pH 6.5 (5.0 - 8.0)
[2024-08-15 15:05] LABS: ALB/GLOB Ratio 1.9 RATIO (0.9-2.4); AST(SGOT) 30 U/L (<=31); Alanine Aminotransfer ALT/SGPT 16 U/L (<=34); Albumin, Serum 4.6 g/dL (3.4-4.8); Alkaline Phosphatase 121 U/L (35-104); Anion Gap 17 (5-15); BUN 54 mg/dL (4-19); BUN/Creat Ratio 32.5 RATIO (10-20); Calcium,Total 10.3 mg/dL (7.6-11.0); Carbon Dioxide 29.3 mmol/L (21.0-32.0); Chloride 88 mmol/L (98-108); Creatinine, Serum 1.67 mg/dL (0.70-1.20); EST Glomerular Filtration Rate 31 (>60); Estimated Creatinine Clearance 20.72 ml/min (50-250); Globulin 2.4 g/dL (2.2-4.2); Glucose 99 mg/dL (70-99); Lipase 28 U/L (13-75); Potassium 2.8 mmol/L (3.3-5.1); Sodium Level 135 mmol/L (133-145); Total Bilirubin 0.56 mg/dL (0.00-1.30)
--- NOTE | 2024-08-15 15:23 | CT_ITS ---
PROCEDURE: BRAIN/HEAD WITHOUT CONTRAST 08/15/2024 REASON FOR EXAM: HEADACHE TECHNIQUE: BRAIN/HEAD WITHOUT CONTRAST Coronal and Sagittal reconstruction series were provided. One or more dose reduction techniques were used (e.g., Automated exposure control, adjustment of the mA and/or kV according to patient size, use of iterative reconstruction technique. RADIATION DOSE SUMMARY: CTDlvol: 44.99 mGy DLP: 748.3 mGycm COMPARISON: None FINDINGS: Brain: Low density in the periventricular white matter suggests mild chronic small vessel ischemic changes. CSF Spaces: Mild generalized cerebral atrophy Sinuses/Mastoids: Clear at visualized levels Bones: Unremarkable CT/Brain/Head without Contrast IMPRESSION: CHRONIC CHANGES. NO ACUTE FINDINGS. Reading Location: [id number]
[2024-08-15] MEDS: Potassium Chloride Oral Tablet 20 MEQ 60 MEQ PO (16:27)
[2024-08-15 16:29] VITALS: BP 97/74; PULSE 60; RESP 16; O2SAT 99
--- NOTE | 2024-08-15 16:41 | US_ITS ---
EXAM: US Abdomen Limited, Gallbladder CLINICAL INDICATION: RUQ PAIN TECHNIQUE: Real-time ultrasound of the right upper quadrant with image documentation. COMPARISON: No relevant prior studies available. FINDINGS: LIVER: Liver measures up to 15.9 cm. GALLBLADDER: Distended gallbladder without convincing evidence of acute cholecystitis. If clinical concern persist, further evaluation with HIDA scan is recommended. Negative Mack's sign was reported by the custom miller. COMMON BILE DUCT: Unremarkable as visualized. No stones. No dilation. Common bile duct measures 0.37 cm in diameter. PANCREAS: Unremarkable as visualized. RIGHT KIDNEY: Prominent renal pelvis without yolanda hydronephrosis. The right kidney measures 8.1 x 3.5 x 2.1 cm. US/Gallbladder IMPRESSION: Distended gallbladder without convincing evidence of acute cholecystitis. If c linical concern persist, further evaluation with HIDA scan is recommended. Reading Location: [id number]
--- NOTE | 2024-08-15 16:42 | EDS_ITS ---
HPI History of Present Illness Chief Complaint: Weakness Narrative Narrative: Patient is a 70-year-old female with past medical history of chronic kidney disease, paroxysmal atrial fibrillation, mechanical heart valves on warfarin, hypertension who presents to the emergency department with a chief complaint of generalized not feeling well, weakness for the last several days. Patient also feels like she has had decreased urine output. Patient denies any recent sick contacts. [facility] Medical History CKD (chronic kidney disease), stage III Tobacco dependence PAF (paroxysmal atrial fibrillation) Valvular heart disease Cancer of kidney Hematuria HTN (hypertension) Vitamin deficiency Cancer of pelvic bone Home Medications ?Medication ?Instructions ?Recorded ?Last Taken ?Type acetaminophen 500 mg tablet 1,000 mg (2 x 500 mg) PO T ID PRN 06/15/15 Unknown Rx PRN Pain #90 tabs pen needle, diabetic 29 gauge x #100 ea 11/14/22 Unkno wn Rx 1/2 (Pen Needle) carvedilol 12.5 mg tablet 12.5 mg PO BID #180 tabs Unknown Rx albuterol sulfate 90 mcg/actuation 2 puff inhalation Q 6H PRN 03/27/24 Unknown Rx aerosol inhaler (Ventolin HFA) shortness of breath or wheezing #8.5 grams acyclovir 400 mg tablet 400 mg PO Q12.TCU 03/31/24 U nknown History furosemide 40 mg tablet 20 mg PO Q12H 03/31/24 Unkno wn History potassium chloride 20 mEq 20 meq PO BID 5 days #10 tab s 08/15/24 Unknown Rx tablet,extended release (K-Tab) warfarin 3 mg tablet 7.5 mg PO DAILY BLOOD THINNE R 08/15/24 08/15/24 History Allergy/AdvReac Type Severity Reaction Status Date / Time amoxicillin Allergy Mild Rash Verified 08/15/24 12:36 benazepril Allergy Mild Rash Verified 08/15/24 12:36 Sulfa (Sulfonamide Allergy Rash Verified 08/15/24 12:36 Antibiotics) Family History Father Lung cancer Mother Heart disease Surgical History Hx of cataract surgery History of total right hip replacement History of hysterectomy History of artificial heart valve Social History household members: spouse Smoking Status: Current some day smoker tobacco type: cigarettes alcohol intake: current alcohol intake frequency: holidays/special occasions only substance use type: does not use what type of physical activity do you participate in: none ROS ROS ED ROS Narrative Constitutional: Denies headache, lightness, dizziness, fevers, chills Eyes: Denies change in vision double vision blurry vision Cardiovascular: Denies chest pain Respiratory: Denies shortness of breath Abdomen: Denies abdominal pain nausea vomiting diarrhea : Complains of decreased urinary output per the patient denies any painful urination or hematuria Neurological: Complains of generalized weakness denies numbness,'s, tingling Musculoskeletal: Denies back pain Skin: Denies any rashes or lesions EXAM Physical Exam Narrative Exam Narrative: General: Patient lying in bed rest comfortably did not appear to be acute distress Head: Atraumatic, normocephalic Eyes: PERRL bilaterally, EOMI by, no conjunctival injection noted Neck: Soft, supple, trachea midline Cardiovascular: Regular rate and rhythm no murmurs gallops rubs noted Respiratory: Clear to auscultation bilaterally Abdomen: Soft, nondistended, tenderness to palpation in the right upper quadrants no rebound or guarding on exam, tender to palpation in the left lower quadrant no rebound or guarding on exam Extremities: +5/5 strength noted in the bilateral upper and lower extremities, no pedal edema on exam, radial pulses +2/4 in the bilateral extremities Neurological: Patient follow commands knew that she was at [facility] 2024 Skin: Warm, dry, tact no rashes or lesions noted Const Vital Signs: 08/15/24 12:35 08/15/24 13:45 08/15/24 16:29 Temperature 96.2 F L Temperature Source Temporal Pulse Rate 63 60 Respiratory Rate 20 H 16 Respiratory Effort Normal Blood Pressure 139/69 H 97/74 Blood Pressure Mean 92 81 Pulse Ox 98 99 Oxygen Delivery Method Room Air Room Air MDM MDM MDM Narrative Medical decision making narrative: Patient is a 78-year-old male who presented to the emergency department with a chief complaint of generalized weakness not feeling well for the last 3 days. On the differential diagnosis includes but not limited to acute cholecystitis, UTI, pneumonia, ACS, electrolyte abnormality. Once the workup is obtained reviewed she will be reevaluated. Patient's CBC reviewed showed a white blood count of 7.4, hemoglobin 14.4, platelet count was 156. Patient's INR was 1.9 slightly below the therapeutic range, PT of 22.6. Patient was noted to be hypokalemic with a potassium of 2.8 she was given 60 mill equivalents of supplementation here magnesium level will be checked. Patient's creatinine was 1.67 which is roughly around her baseline according to previous blood draw slightly worse with compared to the most recent blood draws she does have underlying chronic kidney disease. Patient's anion gap is 17. Patient's magnesium level was pending. Patient AST and ALT were 30 and 16 respectively lipase normal at 28. Patient's urinalysis was reviewed and showed negative nitrites negative leukocyte esterase microscopic pending. Patient's CT head and brain without contrast showed chronic changes no acute findings. Patient CT abdomen and pelvis with IV contrast was reviewed and showed minimally distended gallbladder. Mild central intrahepatic biliary ductal dilation. I went back in and reevaluated the patient and repeat her abdominal exam at 4:40 PM and she has significant right upper quadrant tenderness therefore a right upper quadrant ultrasound will be added on. This will be signed out to oncoming provider to follow-up on. Patient ambulated well here in the emergency department without any tachycardia or hypoxia. She states that she felt steady on her feet. Lab Data Labs: Laboratory Results - last 24 hr 08/15/24 08/15/24 14:00 14:30 WBC 7.4 RBC 4.40 Hgb 14.4 Hct 42.5 MCV 96.6 MCH 32.7 H MCHC 33.9 RDW Std Deviation 46.1 H RDW Coeff of Katie 12.9 Plt Count 156 MPV 11.7 Immature Gran % (Auto) 0.400 Neut % (Auto) 58.7 Lymph % (Auto) 29.9 [place] % (Auto) 9.9 Eos % (Auto) 0.8 Baso % (Auto) 0.3 Absolute Neuts (auto) 4.4 Absolute Lymphs (auto) 2.21 Nucleated RBC % 0 PT 22.6 H INR 1.9 APTT 30.2 Sodium 135 Potassium 2.8 L Chloride 88 L Carbon Dioxide 29.3 Anion Gap 17 H BUN 54 H Creatinine 1.67 H Estim Creat Clear Calc 20.72 L Est GFR (MDRD) Non-Af 31 L BUN/Creatinine Ratio 32.5 H Glucose 99 Calcium 10.3 Magnesium 2.6 H Total Bilirubin 0.56 AST 30 ALT 16 Alkaline Phosphatase 121 H Total Protein 7.0 Albumin 4.6 Globulin 2.4 Albumin/Globulin Ratio 1.9 Lipase 28 Urine Color Straw Urine Clarity Clear Urine pH 6.5 Ur Specific [place] 1.010 Urine Protein Negative Urine Glucose (UA) Normal Urine Ketones Negative Urine Occult Blood Negative Urine Nitrite Negative Urine Bilirubin Negative Urine Urobilinogen Normal Ur Leukocyte Esterase Negative Radiography Diagnostic Testing: Clinical Impression(s) from Imaging Studies Abdomen/Pelvis CT 08/15/24 13:51 IMPRESSION: Minimally distended gallbladder. Mild central intrahepatic biliary ductal dilatation. Reading Location: [facility] Brain CT 08/15/24 15:23 IMPRESSION: CHRONIC CHANGES. NO ACUTE FINDINGS. Reading Location: [facility] Discharge Plan Triage Chief Complaint: Weakness ED Provider: Juan Bernal Dx/Rx/DC Orders Clinical Impression: Generalized weakness, Abdominal pain, Hypokalemia Prescriptions: New potassium chloride [K-Tab] 20 mEq tablet extended release 20 meq PO BID 5 Days Qty: 10 0RF No Action carvedilol 12.5 mg tablet 12.5 mg PO BID Qty: 180 3RF Rx Instructions: must administer with a meal/food acetaminophen 500 MG tablet 1,000 mg PO TID PRN PRN (Reason: Pain) Qty: 90 0RF Patient Comments: Pain as needed (DME) pen needle, diabetic [Pen Needle] 29 gauge x 1/2 needle See Rx Instructions .Route Qty: 100 0RF Rx Instructions: As directed acyclovir 400 mg tablet 400 mg PO Q12.TCU furosemide 40 mg tablet 20 mg PO Q12H warfarin 3 mg tablet 7.5 mg PO DAILY Rx Instructions: take 1/2 tablet with the 5 mg tablet daily albuterol sulfate [Ventolin HFA] 90 mcg/actuation HFA aerosol inhaler 2 puff inhalation Q6H PRN (Reason: shortness of breath or wheezing) Qty: 8.5 1RF Primary Care Provider: Leon Mandel Referrals: Leon Mandel, DO [Primary Care Provider] - Print Language: Divehi
[2024-08-15 16:45] LABS: Magnesium 2.6 mg/dL (1.5-2.2)
[2024-08-15 17:19] LABS: Red Blood Cells-Urine 0-5 SEEN /hpf (0-5); Squamous Epithelial Cells - UA 0-5 SEEN /hpf (5-10); White Blood Cells 0-5 SEEN /hpf (0-5)
[2024-08-15 18:00] VITALS: BP 97/73; PULSE 64; RESP 16
[2024-08-15 19:31] VITALS: BP 102/72; PULSE 64; RESP 16; TEMP 36.6; O2SAT 99
== END 2024-08-15 19:32 | disposition home or self-care (01) ==
PROVIDERS: Emergency Provider Emergency Medicine; PCP Family Medicine; Visit Provider Emergency Medicine
DX: R53.1 Weakness (principal); I48.0 Paroxysmal atrial fibrillation; N18.30 Chronic kidney disease, stage 3 unspecified; E87.6 Hypokalemia; R10.811 Right upper quadrant abdominal tenderness; I12.9 Hypertensive chronic kidney disease with stage 1 through stage 4 chronic kidney disease, or unspecified chronic kidney disease; Z95.2 Presence of prosthetic heart valve; Z79.01 Long term (current) use of anticoagulants; F17.210 Nicotine dependence, cigarettes, uncomplicated
CPT/HCPCS: 70450; 74177; 76705; 80053; 81001; 83690; 83735; 85025; 85610; 85730; 93005; 96360; 96361; 99284; Q9967; A4216

== ENCOUNTER 2024-09-19 13:47 | Outpatient (RCR) | payer MEDICARE, SELFPAY ==
[2024-09-19 15:31] LABS: Prothrombin Time (Protime)PT. 28.2 SECONDS (11.7-14.9)
== END 2024-09-19 23:59 ==
LOC: BIMLAB 13:47
PROVIDERS: PCP Family Medicine; Referring Provider Family Medicine; Visit Provider Family Medicine
DX: I48.20 Chronic atrial fibrillation, unspecified (principal)
CPT/HCPCS: 36415; 85610

== ENCOUNTER → 2024-11-26 | Outpatient (CLI) | payer MEDICARE, SELFPAY ==
--- NOTE | 2024-11-26 16:30 | RAD_ITS ---
PROCEDURE: CHEST PA AND LATERAL 11/26/2024 REASON FOR EXAM: COUGH TECHNIQUE: Procedure Code: RADCXR Modality: DX Procedure: CHEST PA AND LATERAL COMPARISON: 03/31/2024 FINDINGS: Median sternotomy wires. Hyperinflated lungs may reflect COPD. No focal consolidation. No pleural effusion or pneumothorax. Cardiac silhouette is within normal limits. Calcified aortic arch. No acute fractures. RAD/Chest PA and Lateral IMPRESSION: Hyperinflated lungs may reflect COPD. No focal consolidation. Reading Location: [id number]
[2024-11-26 16:50] LABS: Hematocrit 39.7 % (37-47); Hemoglobin 13.1 g/dL (12.0-15.0); Immature Granulocytes Count 0.030 X10^3/uL (0.0-0.0); Mean Corp Hgb Conc 33.0 g/dL (32-36); Mean Corpuscular Volume 100.3 fL (81-99); Mean Platelet Vol. 11.6 fl (6.2-12.0); NRBC Flagged by Analyzer 0 % (0-5); Platelet Count 192 K/mm3 (150-450); RBC Distribution Width CV 13.3 % (11.6-14.6); RBC Distribution Width SD 49.6 fl (35.1-43.9); Red Blood Count 3.96 M/mm3 (4.2-5.4); White Blood Count 5.4 K/mm3 (4.4-11.0)
[2024-11-26 17:21] LABS: AST(SGOT) 27 U/L (<=31); Alanine Aminotransfer ALT/SGPT 16 U/L (<=34); Albumin, Serum 4.3 g/dL (3.4-4.8); Alkaline Phosphatase 103 U/L (35-104); Anion Gap 11 (5-15); BUN 19 mg/dL (4-19); BUN/Creat Ratio 16.0 RATIO (10-20); Calcium,Total 9.6 mg/dL (7.6-11.0); Carbon Dioxide 25.4 mmol/L (21.0-32.0); Chloride 103 mmol/L (98-108); Globulin 2.2 g/dL (2.2-4.2); Glucose 93 mg/dL (70-99); Potassium 3.6 mmol/L (3.3-5.1)
== END | disposition home or self-care (01) ==
LOC: RAD 16:10
PROVIDERS: PCP Family Medicine; Referring Provider Physician Assistant; Visit Provider Physician Assistant
DX: J06.9 Acute upper respiratory infection, unspecified (principal); R05.9 Cough, unspecified
CPT/HCPCS: 36415; 71046; 80053; 85025

== ENCOUNTER 2024-12-27 15:03 | Outpatient (RCR) | payer MEDICARE, SELFPAY ==
[2024-12-27 15:46] LABS: Prothrombin Time (Protime)PT. 33.9 SECONDS (11.7-14.9)
== END 2025-01-18 18:00 | disposition home or self-care (01) ==
LOC: LAB 15:03
PROVIDERS: PCP Family Medicine; Referring Provider Family Medicine; Visit Provider Family Medicine
DX: I48.20 Chronic atrial fibrillation, unspecified (principal)
CPT/HCPCS: 36415; 85610